=== PATIENT | male | born 1970 | race Caucasian/White ===

== ENCOUNTER 2019-07-16 04:31 | Observation (INO) | payer BC, SELFPAY ==
[2019-07-16] VITALS (11 sets, daily range): BP systolic 114–130; BP diastolic 60–83; PULSE 75–93; RESP 16–27; TEMP 36.9–38.3; O2SAT 95–100; BMI 31.2; BMI 31.5
[2019-07-16] MEDS: 0.9% Normal Saline 1,000 ML 150 ML IV (04:53)
--- NOTE | 2019-07-16 05:01 | RAD_ITS ---
STUDY: X-RAY CHEST REASON FOR EXAM: Male, 48 years old. SOB -- CELLULITIS TO LEG TECHNIQUE: Single AP portable view of the chest. Patient is slightly rotated to the left. COMPARISON: None. FINDINGS: The lungs are clear and expanded. There is no demonstrated pleural abnormality. Normal size heart. Normal mediastinum and keshawn. Normal visualized pulmonary arteries. Normal visualized aortic arch and descending thoracic aorta. There are multilevel degenerative changes of the visualized thoracic spine. Normal visualized ribs, clavicles, and shoulders. There is no demonstrated abnormality of the visualized soft tissue structures of the upper abdomen. RAD/Chest 1 View (Portable) IMPRESSION: No evidence for acute cardiopulmonary pathology. Electronically Signed: Jase Fisher MD at 5:27 EDT , Service support ,
[2019-07-16 05:14] LABS: Absolute Neutrophil Count 17.1 X10^3/uL (2.0-7.7); Basophil# 0.03 X10^3/uL; Basophil% 0.2 % (0-1); Differential Indicated SCAN CRITERIA MET; Eosinophil# 0.08 X10^3/uL; Eosinophils% 0.4 % (0-5); Hematocrit 39.2 % (40-54); Hemoglobin 13.4 g/dL (13.0-16.5); Lymphocyte % 2.2 % (19-41); Mean Corp Hgb Conc 34.2 g/dL (32-36); Mean Corpuscular Hgb 29.6 pg (27.0-32.0); Mean Corpuscular Volume 86.7 fL (80-94); Mean Platelet Vol. 10.5 fl (6.2-12.0); Monocyte# 0.56 X10^3/uL; NRBC Flagged by Analyzer 0 % (0-5); Neutrophil # 17.07 X10^3/uL (2.7-7.7); Neutrophil % 92.6 % (47-70); POSITIVE DIFFERENTIAL YES; POSITIVE MORPHOLOGY YES; Platelet Count 180 K/mm3 (150-450); RBC Distribution Width SD 40.3 fl (35.1-43.9); Red Blood Count 4.52 M/mm3 (4.6-6.2); White Blood Count 18.4 K/mm3 (4.4-11.0)
--- NOTE | 2019-07-16 05:29 | ED.VISSUMM ---
- ER Visit Summary Date of Service: 07/16/19 Chief Complaint: [Cellulitis left leg] History of Present Illness: The patient is a 48 M [presents the emergency department complaint of redness and swelling to the left leg that he noticed yesterday. Patient states he started taking the dose of clindamycin last evening. Patient developed chills. He complains of aching in his body and complains of some mild shortness of breath which is typical when he gets cellulitis. Patient states that he has had multiple other episodes of cellulitis in the left leg. He has had admissions for this in the past. He denies any other illness. Patient has no medical history otherwise. Patient denies cough or sore throat. He denies sick contacts.] Physical Examination: [HEENT-PERRLA, EOMI. Cranial nerves II through XII grossly intact. TMs clear. Mucous membranes moist. No adenopathy. Cardiovascular-regular rate and rhythm without murmur or ectopy Lungs-clear to auscultation, chest wall stable without crepitus or subcu emphysema Abdomen-normoactive bowel sounds, soft, nontender, no rebound or rigidity, no peritoneal signs. Extremities-intact ?4, normal range of motion, normal pulses, atraumatic. Left leg-patient has erythema and soft tissue swelling noted from the left knee down to the ankle. Leg is warm to the touch.] Test Results: [CBC with differential obtained showed a white count of 18.4, hemoglobin 13, hematocrit 39, plates 180. Chest x-ray was unremarkable.] Chemistries unremarkable. Lactate was 1.0. Emergency Department Course and Treatment: [9 established and was started on Unasyn 3 g IV. Was given normal saline at 150 cc an hour.] Treatment Plan: [Admit] Disposition: [Admit] Impression: [Cellulitis left leg Sepsis] This note was generated with comScore dictation software. It may contain incorrect words, spelling, and punctuation that were not noted in review of the chart prior to signing ED Disposition - Plan for ED Patient: [facility] [[facility] Provider] -
[2019-07-16 05:30] LABS: Anion Gap 5 (5-15); BUN 21 mg/dL (7-18); BUN/Creat Ratio 16.2 RATIO (10-20); Calcium,Total 8.7 mg/dL (8.5-10.1); Chloride 104 mmol/L (98-107); EST Glomerular Filtration Rate 62 mL/min (>60); Est Glom Filt Rate - Afr Amer 75 mL/min (>60); Estimated Creatinine Clearance 81.25 ml/min; Glucose 122 mg/dL (74-106); Potassium 4.1 mmol/L (3.5-5.1); Sodium Level 135 mmol/L (136-145)
[2019-07-16 05:32] LABS: Differential Comment SCANNED
--- NOTE | 2019-07-16 05:37 | NURSING ---
CALLED [facility], SPOKE WATSON LYNN IN BED CONTROL TO ADVISE THE NEED TO ADMIT THIS PT. LEAH STATED TO ADMIT AND THEY WILL FOLLOW UP IN THE MORNING
--- NOTE | 2019-07-16 06:00 | PCM.HP.STD ---
History of Present Illness Date of Admission: 07/16/19 Chief Complaint: LLE cellulitis The patient is a 48 year old M with a PMH as below who presents with left lower extremity cellulitis that started yesterday. He did take a dose of clindamycin before coming into the hospital. He says it just happens fairly frequently and he has been hospitalized several times at the [facility] in [facility] And another [facility] throughout the [place]. He states that he has been investigated with ultrasound of his left lower extremity as well as CT scans and that the best explanation he can get is that he has poor circulation. It does swell and he is supposed be wearing compression stockings but he does not comply with it very often. 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 In the ER he is afebrile with a leukocytosis to 18.4, normal lactate. Past Medical History Past Medical History (Chronic Problems): Chronic Problems Venous stasis of lower extremity (Chronic) Allergies No Known Allergies Allergy (Verified 07/16/19 04:38) Home Medications: Ambulatory Orders Medication Instructions Recorded Cephalexin [Keflex] 500 mg PO Q12 07/16/19 Surgical History: - - Bunion surgery, reattachment of left little finger secondary to traumatic injury Smoking Status: Never smoker Alcohol: None Drugs: None - *Family History Maternal History Items: No pertinent history Paternal History Items: Heart Disease, - - Lung disease Sibling History Items: No pertinent history Review of Systems Constitutional: Reports: Chills. Denies: Fever, Weight Change HEENT: Denies: Head Aches, Sinus Congestion, Sinus Drainage Cardiovascular: Denies: Chest Pain, Palpitations Respiratory: Denies: Cough, Shortness of breath at rest, Sputum production Gastrointestinal: Denies: Abdominal Pain, Nausea, Vomiting Genitourinary: Denies: Dysuria Musculoskeletal: Denies: Joint Pain, Joint Tenderness Skin: Reports: Rash. Denies: Wounds Neurological: Denies: Numbness, Tingling, Focal weakness Psychiatric: Denies: Anxiety, Depression Hematologic/ Lymphatic: Denies: Easy Bruising, Easy Bleeding VTE Information - Inpt Only VTE Present on Admission: No - Physical Exam Vitals/I&O's: Vital Signs Temp Pulse Resp BP Pulse Ox 99.9 F H 89 20 H 125/83 H 98 07/16/19 04:37 07/16/19 04:37 07/16/19 04:37 07/16/19 04:37 07/16/19 04:37 Oxygen Delivery Method Room Air Weight: 250 lb 0.067 oz Body Mass Index (BMI) 31.2 Intake and Output for Last 24 Hours 07/14/19 07/15/19 07/16/19 23:59 23:59 23:59 Intake Total 17.5 / 17.5 Balance 17.5 / 17.5 General: Alert, Oriented x3, Cooperative, No apparent distress HEENT: Atraumatic, PERRLA, EOMI, Normocephalic Oral: Moist Mucosa Neck: Supple, No JVD Lungs: Clear to auscultation, Normal air movement, No rhonchi, No wheeze, No rales Cardiovascular: Regular rate, Regular Rhythm, Normal S1, Normal S2, No murmurs Abdomen: Soft, Non Tender, Non-Distended, No Hepato-splenomegaly Extremities: Capillary Refill Less than 3 Seconds, Edema - Left lower extremity edema chronic no history of DVT and he has been investigated several times with the Skin: No breakdown, - - Left lower extremity cellulitis with a little bit of edema. Cellulitis extends to below the knee Neurological: Neuro grossly intact, Sensory exam intact to light touch and pain Psych/Mental Status: Normal Affect, Appropriate Laboratory Results 07/16/19 04:55: WBC 18.4 H, RBC 4.52 L, Hgb 13.4, Hct 39.2 L, MCV 86.7, MCH 29.6, MCHC 34.2, RDW Std Deviation 40.3, RDW Coeff of Siri 13.0, Plt Count 180, MPV 10.5, Immature Gran % (Auto) 1.600 H, Neut % (Auto) 92.6 H, Lymph % (Auto) 2.2 L, [place] % (Auto) 3.0, Eos % (Auto) 0.4, Baso % (Auto) 0.2, Absolute Neuts (auto) 17.1 H, Absolute Lymphs (auto) 0.40 L, Nucleated RBC % 0, Differential Comment SCANNED 07/16/19 04:55: Sodium 135 L, Potassium 4.1, Chloride 104, Carbon Dioxide 26.0, Anion Gap 5, BUN 21 H, Creatinine 1.30, Estim Creat Clear Calc 81.25, Est GFR (MDRD) Af Amer 75, Est GFR (MDRD) Non-Af 62, BUN/Creatinine Ratio 16.2, Glucose 122 H, Calcium 8.7 07/16/19 04:55: Lactic Acid 1.0 Current Medications Sodium Chloride () 1,000 mls @ 150 mls/hr IV .[id number] ROBB Last Infusion: 07/16/19 05:00 Dose: 0 mls/hr Documented by: Assessment/Plan All Active Problems redness of left leg (Acute) 1. Mild sepsis secondary to left lower extremity cellulitis -Continue with Keflex p.o., he did get a dose of Unasyn in the ER -IV fluids at 100 -Blood cultures are pending -Encouraged him to wrap his lower extremity and an Bony bandage when exercising to control any edema -He states that he has had extensive [facility] with [facility] and CT scans. Nothing has been found -He was last admitted in April for this and it was much more severe at that time DVT: Ambulation OBSV E&M: 68092 Initial observation care L2
[2019-07-16] MEDS: 0.9% Normal Saline 1,000 ML 100 ML IV ×2 (07:06→14:47)
[2019-07-16] MEDS: Cephalexin 500 MG Capsule PO ×4 (07:07→23:23)
[2019-07-16 09:22] LABS: AST(SGOT) 19 U/L (15-37); Alanine Aminotransfer ALT/SGPT 27 U/L (16-61); Albumin, Serum 3.8 g/dL (3.2-5.0); Alkaline Phosphatase 60 U/L (45-117); Bilirubin, Direct 0.26 mg/dL (0.00-0.30); Globulin 3.6 g/dL (2.2-4.2); Protein, Total 7.4 g/dL (6.4-8.2)
--- NOTE | 2019-07-16 10:47 | VDLE_ITS ---
Reason For Study: Swelling Procedure LEFT Exam performed portable in patient room. GSV is normal. A preliminary report was called and/or faxed CFV is compressible, spontaneous, phasic, to PCU. competent, and demonstrates normal augmentation. FV is compressible, spontaneous, phasic, competent and demonstrates normal augmentation. POP V is compressible, spontaneous, phasic, competent and demonstrates normal augmentation. T/P Trunk is compressible. PTV is compressible. LT PerV is compressible. Large nonvascularized structure noted in the left popliteal space measuring approximently 0.84 x 2.38 cm. Interpretation Summary There is no evidence of left lower extremity deep vein thrombosis. Left great saphenous vein appears patent and compressible segmentally. Left popliteal space 0.84 x 2.38cm Courtney's cyst Ordering Physician: Mary Martinez Performed By: Shirley Matthews RVT
--- NOTE | 2019-07-16 10:48 | PCM.PN.BLA ---
Progress Note Follow-up on left leg cellulitis. Patient was seen and examined. He complains of poor appetite, denies fever or chills. Left lower extremity cellulitis is better. Vitals reviewed, stable Focused exam of the left leg showed improvement in erythema, differential warmth still present. Erythema has not extended beyond the borders of the marked region. Left lower leg is bigger than right We will continue on Keflex, elevation of the lower extremity, obtain Doppler ultrasound of the lower leg He will need follow-up with vascular surgery on discharge as this appears to be acute on chronic. STROKE Vital Signs/Narrative: Vital Signs Temp Pulse Resp BP Pulse Ox 07/16/19 10:40 100.0 F H 89 18 130/72 H 95
--- NOTE | 2019-07-16 11:10 | CASEMGMT ---
[facility] at [facility] Kamari VALDEZ CM
[2019-07-16] MEDS: Acetaminophen 325 MG Tablet 650 MG PO (11:47)
--- NOTE | 2019-07-16 13:28 | US_ITS ---
STUDY: SUPERFICIAL ULTRASOUND - POPLITEAL FOSSA OF THE LEFT KNEE REASON FOR EXAM: Male, 48 years old. LT COURTNEY CYST TECHNIQUE: A superficial ultrasound was performed with real-time and static klein-scale imaging. COMPARISON: None. FINDINGS: There is a cystic mass in the popliteal fossa measuring 3.5 x 2.8 x 1.2 cm with mild internal debris consistent with Courtney cyst possibly hemorrhagic. US/Ext Non Vasc Limited/Soft Tiss IMPRESSION: Complex Courtney''s cyst in the left popliteal fossa measuring 3.5 x 2.8 x 1.2 cm Electronically Signed: Mitch Burrell MD at 16:09 EDT , Service support ,
[2019-07-16] MEDS: 0.9% Saline Lock 10 ML Syringe IV (17:01)
[2019-07-17] MEDS: 0.9% Normal Saline 1,000 ML 100 ML IV (02:10)
[2019-07-17 02:11] VITALS: BP 118/53; PULSE 66; RESP 20; TEMP 37; O2SAT 95
[2019-07-17] MEDS: Cephalexin 500 MG Capsule PO ×2 (05:14→11:02)
[2019-07-17 05:33] LABS: Absolute Lymphocyte Count 1.15 X10^3/uL (0.83-4.51); Absolute Neutrophil Count 7.7 X10^3/uL (2.0-7.7); Basophil# 0.03 X10^3/uL; Basophil% 0.3 % (0-1); Eosinophil# 0.03 X10^3/uL; Eosinophils% 0.3 % (0-5); Hemoglobin 11.9 g/dL (13.0-16.5); Lymphocyte # 1.15 X10^3/ul (4.0); Mean Corp Hgb Conc 33.1 g/dL (32-36); Mean Corpuscular Hgb 29.1 pg (27.0-32.0); Mean Platelet Vol. 10.2 fl (6.2-12.0); Monocyte# 0.67 X10^3/uL; NRBC Flagged by Analyzer 0 % (0-5); Neutrophil # 7.67 X10^3/uL (2.7-7.7); Neutrophil % 79.9 % (47-70); Platelet Count 135 K/mm3 (150-450); RBC Distribution Width CV 13.2 % (11.6-14.6); RBC Distribution Width SD 42.6 fl (35.1-43.9); Red Blood Count 4.09 M/mm3 (4.6-6.2); White Blood Count 9.6 K/mm3 (4.4-11.0)
[2019-07-17 05:50] LABS: Anion Gap 4 (5-15); BUN 12 mg/dL (7-18); BUN/Creat Ratio 10.6 RATIO (10-20); Calcium,Total 8.2 mg/dL (8.5-10.1); Chloride 111 mmol/L (98-107); Creatinine, Serum 1.13 mg/dL (0.70-1.30); EST Glomerular Filtration Rate 73 mL/min (>60); Est Glom Filt Rate - Afr Amer 88 mL/min (>60); Estimated Creatinine Clearance 93.47 ml/min; Glucose 114 mg/dL (74-106); Sodium Level 140 mmol/L (136-145)
--- NOTE | 2019-07-17 09:18 | DCINST_ITS ---
- Discharge Diagnoses Reason(s) for Visit for Discharge Instructions: Left leg swelling and redness You will use the following diet at home:: Regular Your food should be the consistency of: Regular Your liquids should be the consistency of: Regular/Thin Discharge Activity: Return to Normal Activity Additional Instructions: Complete your antibiotics. [facility] Allergies/Adverse Reactions: Allergies No Known Allergies Allergy (Verified 07/16/19 04:38) Medications to take at Discharge Cephalexin [Keflex] 500 mg PO Q6 7 Days #42 cap 07/17/19 The following prescriptions were given: Cephalexin [Keflex] 500 mg PO Q6 7 Days #42 cap Transmission Status: Pending to [employer] #30 Primary Care Physician: [facility],[place] [Primary Care Provider] - Please follow up with your Primary Care Physician in: within 1-2 weeks Test Results: Test results from this visit will be discussed in further detail at your follow- up appointment, if applicable. Proposed Discharge Date: 07/17/19
--- NOTE | 2019-07-17 09:20 | DS.PCM_ITS ---
Discharge Date and Diagnosis Date of Admission: 07/16/19 Date of Discharge: 07/17/19 - Primary Discharge Diagnosis Sepsis secondary to acute Cellulitis of left leg - Secondary Discharge Diagnosis Chronic Problems Venous stasis of lower extremity (Chronic) Hospital Course and Treatment Imaging Results: Clinical Impression(s) from Imaging Studies Chest X-Ray 07/16/19 05:01 IMPRESSION: No evidence for acute cardiopulmonary pathology. Electronically Signed: Jase Fisher MD at 5:27 EDT , Service support , Soft Tissue Ultrasound 07/16/19 13:28 IMPRESSION: Complex Courtney''s cyst in the left popliteal fossa measuring 3.5 x 2.8 x 1.2 cm Electronically Signed: Mitch Burrell MD at 16:09 EDT , Service support , None Operations: None Procedures: None Summary of Care Provided: The patient is a 48 year old M with PMHx of venous insufficiency who comes in with left lower extremity redness of 1 day duration. Patient has recurrent history of the above and has been hospitalized several times in the [place]. managed as sepsis secondary to acute lower extremity cellulitis. He was initially started on Unasyn in the ED and transitioned to Keflex. Patient's general condition was stable. Doppler ultrasound of his lower extremity was negative for acute DVT but was positive for a popliteal cyst. Patient continued to be stable. His blood cultures were pending at time of discharge. He will follow- up with the [place] for vascular surgery input into his chronic venous insufficiency. Subjective: On the day of discharge, patient was seen and examined. Denied any new complaints. Denies any fever or chills or shortness of breath. - Physical Exam Vitals/I&O's: Vital Signs Temp Pulse Resp BP Pulse Ox 98.6 F 66 20 H 118/53 L 95 07/17/19 02:11 07/17/19 02:11 07/17/19 02:11 07/17/19 02:11 07/17/19 02:11 Oxygen Delivery Method Room Air Weight: 114.305 kg Body Mass Index (BMI) 31.5 Intake and Output for Last 24 Hours 07/15/19 07/16/19 07/17/19 23:59 23:59 23:59 Intake Total 1862.83 / 2384.83 1522 / 1522 Balance 1862.83 / 2384.83 1522 / 1522 General: Alert, Oriented x3, Cooperative, No apparent distress HEENT: Atraumatic, PERRLA, EOMI, Normocephalic Oral: Moist Mucosa Neck: Supple Lungs: Clear to auscultation, Normal air movement Cardiovascular: Regular rate, Regular Rhythm, Normal S1, Normal S2, No murmurs Abdomen: Bowel Sounds Present, Soft, Non Tender, Non-Distended, No Hepato- splenomegaly Extremities: Edema - Left lower leg is bigger than the right, erythema is much improved, edema is improved although left lower leg continues to be remarkably bigger than the right. Skin: No rashes, No breakdown Musculoskeletal: No Tenderness to Palpation of Joints or Extremities Neurological: Cranial nerves II-XII grossly intact Psych/Mental Status: Normal Affect, Appropriate Laboratory Results 07/16/19 04:55: Total Bilirubin 1.00, Direct Bilirubin 0.26, AST 19, ALT 27, Alkaline Phosphatase 60, Total Protein 7.4, Albumin 3.8, Globulin 3.6 07/17/19 05:06: WBC 9.6, RBC 4.09 L, Hgb 11.9 L, Hct 36.0 L, MCV 88.0, MCH 29.1, MCHC 33.1, RDW Std Deviation 42.6, RDW Coeff of Srii 13.2, Plt Count 135 L, MPV 10.2, Immature Gran % (Auto) 0.500, Neut % (Auto) 79.9 H, Lymph % (Auto) 12.0 L, [place] % (Auto) 7.0, Eos % (Auto) 0.3, Baso % (Auto) 0.3, Absolute Neuts (auto) 7.7, Absolute Lymphs (auto) 1.15, Nucleated RBC % 0 07/17/19 05:06: Sodium 140, Potassium 4.0, Chloride 111 H, Carbon Dioxide 25.0, Anion Gap 4 L, BUN 12, Creatinine 1.13, Estim Creat Clear Calc 93.47, Est GFR (MDRD) Af Amer 88, Est GFR (MDRD) Non-Af 73, BUN/Creatinine Ratio 10.6, Glucose 114 H, Calcium 8.2 L Current Medications Acetaminophen (Tylenol) 650 mg PO Q6H PRN PRN PRN Reason: Pain Score 1-10/Temp > 100.7 F Last Admin: 07/16/19 11:47 Dose: 650 mg Documented by: Cephalexin (Keflex) 500 mg PO Q6 [facility] Last Admin: 07/17/19 05:14 Dose: 500 mg Documented by: Sodium Chloride () 1,000 mls @ 100 mls/hr IV .Q10H [facility] Last Admin: 07/17/19 02:10 Dose: 100 mls/hr Documented by: Sodium Chloride () 250 mls @ 15 mls/hr IV .[id number] PRN PRN Reason: Saline Flush Sodium Chloride () 250 mls @ 15 mls/hr IV .[id number] PRN PRN Reason: Additional IVPB Infusion Sodium Chloride () 10 - 40 ml IV UD PRN PRN Reason: SALINE FLUSH Last Admin: 07/16/19 17:01 Dose: 10 ml Documented by: Discharge Diet: No Restrictions Discharge Activity: Return to Normal Activity Home Medications: Medications to take at Discharge Cephalexin [Keflex] 500 mg PO Q6 7 Days #42 cap 07/17/19 Following Prescrptions Were Given to Patient: Cephalexin [Keflex] 500 mg PO Q6 7 Days #42 cap Transmission Status: Received by [employer] #30 Primary Care Physician: [facility],[place] [Primary Care Provider] - Please follow up with your Primary Care Physician in: within 1-2 weeks Disposition: Home Minutes spent on discharge:: 40 Patient Condition:: Stable Medical Necessity - Tobacco Use Smoking Status: Never smoker Tobacco Use: Non-smoker Meaningful Use Info Meaningful Use Diagnoses (Choose all that apply): None applicable OBSV E&M: 21168 Observation care discharge
[2019-07-17 10:50] VITALS: BP 120/65; PULSE 59; RESP 16; TEMP 36.7; O2SAT 100
== END 2019-07-17 09:14 | disposition home or self-care (01) ==
LOC: ED 06:06 → PCU 06:11
PROVIDERS: Admitting Provider Family Medicine; Emergency Provider Emergency Medicine; Visit Provider Internal Medicine
DX: A41.9 Sepsis, unspecified organism (principal); L03.116 Cellulitis of left lower limb; I87.8 Other specified disorders of veins; R06.02 Shortness of breath
CPT/HCPCS: 36415; 71045; 76882; 80048; 80076; 83605; 85025; 87040; 93971; 96361; 96365; 99218; 99284; J7030; A4216; G0378; J0295

== ENCOUNTER 2019-08-17 11:20 | Inpatient (IN) | payer BC, OTHER, SELFPAY ==
[2019-07-16 06:26] VITALS: BMI 31.5
[2019-08-17] VITALS (10 sets, daily range): BP systolic 114–160; BP diastolic 61–130; PULSE 86–118; RESP 16–22; TEMP 37.2–38.3; O2SAT 93–100; BMI 31.8; BMI 31.9
--- NOTE | 2019-08-17 11:36 | RAD_ITS ---
STUDY: X-RAY CHEST REASON FOR EXAM: Male, 48 years old. CELLULITIS. FEVER TECHNIQUE: Single AP portable view of the chest. COMPARISON: Prior study of 07/16/2019 FINDINGS: ekg monitor tech leads are present. The lungs are clear and expanded. There is no demonstrated pleural abnormality. Normal size heart. Normal mediastinum and keshawn. Normal visualized pulmonary arteries. Normal visualized aortic arch and descending thoracic aorta. Normal visualized thoracic spine. Normal visualized ribs, clavicles, and shoulders. There is no demonstrated abnormality of the visualized soft tissue structures of the upper abdomen. RAD/Chest 1 View (Portable) IMPRESSION: Normal x-ray examination of the chest. Electronically Signed: Aleksandr Salgado MD at 12:35 EDT , Service support ,
--- NOTE | 2019-08-17 11:36 | EKG12_ITS ---
Test Reason : Blood Pressure : / mmHG Vent. Rate : 096 BPM Atrial Rate : 096 BPM P-R Int : 152 ms QRS Dur : 084 ms QT Int : 352 ms P-R-T Axes : 010 049 004 degrees QTc Int : 444 ms Normal sinus rhythm Nonspecific T wave abnormality Abnormal ECG Confirmed by ROSHNI OLGUIN, MIAH ([id number]), metropolitan editor ELDA LIPSCOMB ([id number]) on 08/18/2019 12:57:41 PM Referred By: DIPESH Confirmed By:MIAH BARAKAT MD
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
[2019-08-17] MEDS: 0.9% Normal Saline 1,000 ML 999 ML IV (12:02)
[2019-08-17] MEDS: Acetaminophen 500 MG Tablet 1000 MG PO (12:03)
[2019-08-17 12:27] LABS: Absolute Neutrophil Count 10.3 X10^3/uL (2.0-7.7); Basophil# 0.02 X10^3/uL; Basophil% 0.2 % (0-1); Eosinophil# 0.08 X10^3/uL; Eosinophils% 0.7 % (0-5); Hematocrit 39.8 % (40-54); Hemoglobin 13.5 g/dL (13.0-16.5); Lymphocyte % 5.3 % (19-41); Mean Corp Hgb Conc 33.9 g/dL (32-36); Mean Corpuscular Hgb 29.7 pg (27.0-32.0); Mean Corpuscular Volume 87.5 fL (80-94); Mean Platelet Vol. 10.5 fl (6.2-12.0); Monocyte# 0.32 X10^3/uL; Monocyte% 2.8 % (0-10); NRBC Flagged by Analyzer 0 % (0-5); Neutrophil # 10.25 X10^3/uL (2.7-7.7); Neutrophil % 90.6 % (47-70); POSITIVE DIFFERENTIAL YES; Platelet Count 153 K/mm3 (150-450); RBC Distribution Width CV 13.3 % (11.6-14.6); RBC Distribution Width SD 41.3 fl (35.1-43.9); Red Blood Count 4.55 M/mm3 (4.6-6.2); White Blood Count 11.3 K/mm3 (4.4-11.0)
[2019-08-17 12:38] LABS: AST(SGOT) 19 U/L (15-37); Alanine Aminotransfer ALT/SGPT 26 U/L (16-61); Albumin, Serum 3.7 g/dL (3.2-5.0); Alkaline Phosphatase 68 U/L (45-117); Anion Gap 5 (5-15); BUN 26 mg/dL (7-18); BUN/Creat Ratio 21.5 RATIO (10-20); Calcium,Total 8.6 mg/dL (8.5-10.1); Chloride 107 mmol/L (98-107); Creatinine, Serum 1.21 mg/dL (0.70-1.30); EST Glomerular Filtration Rate 67 mL/min (>60); Est Glom Filt Rate - Afr Amer 81 mL/min (>60); Estimated Creatinine Clearance 87.29 ml/min; Globulin 3.7 g/dL (2.2-4.2); Glucose 111 mg/dL (74-106); International Normalized Ratio 1.1; Lactic Acid 1.2 mmol/L (0.4-1.9); Potassium 4.1 mmol/L (3.5-5.1); Protein, Total 7.4 g/dL (6.4-8.2); Prothrombin Time (Protime)PT. 13.5 SECONDS (11.7-14.9); Sodium Level 138 mmol/L (136-145)
[2019-08-17 12:39] LABS: Partial Thromboplast Time 28.2 Seconds (24.1-36.2)
[2019-08-17 12:40] LABS: Differential Indicated SCAN CRITERIA MET
[2019-08-17 12:52] LABS: Differential Comment SCANNED
[2019-08-17 14:06] LABS: Bacteria 0 SEEN /hpf (None Seen); Mucous, Urine 0 SEEN /hpf (<or=2+); Red Blood Cells-Urine 0 SEEN /hpf (0-5); Squamous Epithelial Cells - UA 0 SEEN /hpf (0-5)
[2019-08-17 14:08] LABS: Color, Urine Yellow (Yellow); Glucose, Dipstick Normal (Normal); Ketone-Dipstick Negative (Negative); Leukocyte Esterase-Dipstick Negative /ul (Negative); Nitrite-Dipstick Negative (Negative); Occult Blood-Urine Negative /ul (Negative); Protein-Dipstick 15 mg/dl (Negative); Specific Gravity, Urine 1.015 (1.002-1.030); Urine Bilirubin Dipstick Negative (Negative); Urine Clarity Clear (Clear); Urine Urobilinogen Normal (Normal); Urine pH 6.5 (5.0 - 8.0)
[2019-08-17 14:22] LABS: White Blood Cells 0-5 SEEN /hpf (0-5)
--- NOTE | 2019-08-17 16:37 | PCM.HP.STD ---
Problem List (1) Cellulitis of left lower leg Status: Acute (2) Sepsis Status: Acute (3) Venous stasis of lower extremity Status: Chronic History of Present Illness Date of Admission: 08/17/19 Chief Complaint: LLE erythema The patient is a 48 year old M with pmhx of venous stasis and multiple (possibly 10 episodes) cellulitis left lower extremity. He came to the ER with redness of the left distal lower extremity near the ankle and chills that started this morning. He was recently admitted to the hospital with LLE cellulitis discharged 07/16/19 after being treated with unasyn and keflex. He was checked at that time for DVT but doppler was negative, it did show a popliteal cyst. The patient states that he has had issues with this every since early . He developed a blackened area on his foot, and was treated successfully for cellulitis. He has had recurrent cellulitis since then in the same location. Since arriving in the ER the erythema has spread to include the entire distal Left LE. After receiving antibiotics (unasyn) his chills have resolved. He also has a fever and tachycardia in the ER. He was in his normal state of health until this AM. He denies recent trauma to the area and has no evidence of abscess or fluid collection. [] Past Medical History Past Medical History (Chronic Problems): Chronic Problems Venous stasis of lower extremity (Chronic) Allergies No Known Allergies Allergy (Verified 08/17/19 11:21) Home Medications: Ambulatory Orders Medication Instructions Recorded NK 08/17/19 Surgical History: - - Bunion surgery, reattachment of left little finger secondary to traumatic injury Psychiatric History: No pertinent psych hx Lives: Spouse/ Significant Other Smoking Status: Never smoker Tobacco Use: Non-smoker Alcohol: None Drugs: None - *Family History Maternal History Items: No pertinent history Paternal History Items: Heart Disease, - - Lung disease Sibling History Items: No pertinent history Review of Systems Constitutional: Denies: Chills, Fever, Weight Change HEENT: Denies: Head Aches, Sinus Congestion, Sinus Drainage Cardiovascular: Denies: Chest Pain, Palpitations Respiratory: Denies: Cough, Shortness of breath at rest, Sputum production Gastrointestinal: Denies: Abdominal Pain, Nausea, Vomiting Genitourinary: Denies: Dysuria Musculoskeletal: Denies: Joint Pain, Joint Tenderness Skin: Reports: Rash, Skin Changes. Denies: Wounds Neurological: Denies: Numbness, Tingling, Focal weakness Psychiatric: Denies: Anxiety, Depression, Homicidal Ideations, Suicidal Ideations Hematologic/ Lymphatic: Denies: Easy Bruising, Easy Bleeding VTE Information - Inpt Only VTE Present on Admission: No VTE Mechan Device Prophylaxis: None VTE Pharm Prophylaxis ordered?: Yes Patient Problems: Active and Suspected Problems Cellulitis of left lower leg (Acute) Sepsis (Acute) - Physical Exam Vitals/I&O's: Vital Signs Temp Pulse Resp BP Pulse Ox 99.7 F H 100 20 H 120/62 95 08/17/19 15:30 08/17/19 15:30 08/17/19 15:30 08/17/19 15:30 08/17/19 15:30 Oxygen Delivery Method Room Air Weight: 255 lb Body Mass Index (BMI) 31.8 Intake and Output for Last 24 Hours 08/15/19 08/16/19 08/17/19 23:59 23:59 23:59 Intake Total 1112 / 1112 Balance 1112 / 1112 General: Alert, Oriented x3, Cooperative HEENT: Atraumatic, PERRLA, EOMI, Normocephalic Neck: Supple, No JVD, Negative Carotid Bruits Lungs: Clear to auscultation, Normal air movement Cardiovascular: Regular rate, No murmurs Abdomen: Bowel Sounds Present, Soft, Non Tender Extremities: Capillary Refill Less than 3 Seconds, Edema - LLE Skin: No breakdown, - - left distal leg with circumferential erythema, warmth, tenderness, no abscess or collection Musculoskeletal: No Tenderness to Palpation of Joints or Extremities Neurological: Cranial nerves II-XII grossly intact Psych/Mental Status: Normal Affect, Appropriate, Alert and oriented to time, place, person, mood and affect Laboratory Results 08/17/19 12:00: WBC 11.3 H, RBC 4.55 L, Hgb 13.5, Hct 39.8 L, MCV 87.5, MCH 29.7, MCHC 33.9, RDW Std Deviation 41.3, RDW Coeff of Siri 13.3, Plt Count 153, MPV 10.5, Immature Gran % (Auto) 0.400, Neut % (Auto) 90.6 H, Lymph % (Auto) 5.3 L, [place] % (Auto) 2.8, Eos % (Auto) 0.7, Baso % (Auto) 0.2, Absolute Neuts (auto) 10.3 H, Absolute Lymphs (auto) 0.60 L, Nucleated RBC % 0, Differential Comment SCANNED 08/17/19 12:00: PT 13.5, INR 1.1, APTT 28.2 08/17/19 12:00: Sodium 138, Potassium 4.1, Chloride 107, Carbon Dioxide 26.0, Anion Gap 5, BUN 26 H, Creatinine 1.21, Estim Creat Clear Calc 87.29, Est GFR (MDRD) Af Amer 81, Est GFR (MDRD) Non-Af 67, BUN/Creatinine Ratio 21.5 H, Glucose 111 H, Calcium 8.6, Total Bilirubin 0.60, AST 19, ALT 26, Alkaline Phosphatase 68, Total Protein 7.4, Albumin 3.7, Globulin 3.7, Albumin/Globulin Ratio 1.0 08/17/19 12:00: Lactic Acid 1.2 08/17/19 13:45: Urine Color Yellow, Urine Clarity Clear, Urine pH 6.5, Ur Specific [place] 1.015, Urine Protein 15 H, Urine Glucose (UA) Normal, Urine Ketones Negative, Urine Occult Blood Negative, Urine Nitrite Negative, Urine Bilirubin Negative, Urine Urobilinogen Normal, Ur Leukocyte Esterase Negative, Urine RBC 0 SEEN, Urine WBC 0-5 SEEN, Ur Squamous Epith Cells 0 SEEN, Urine Bacteria 0 SEEN, Urine Mucus 0 SEEN Assessment/Plan All Active Problems Cellulitis of left lower leg (Acute) Sepsis (Acute) redness of left leg (Acute) 1. Acute sepsis 2/2 Acute, recurrent cellulitis LLE - appearance c/w strep. In the past he has not had any specific bacteria identified. Each episode has responded well to cephalosporins and penicillins. Will continue unasyn started in ER. Give IV fluids overnight. Venous US done last month negative for DVT, defer repeat. Sepsis criteria met tachycardia, fever, leukocytosis, tachypnea. Negative lactate. Blood cultures pending. No wound to culture. CXR negative. 2. Venous stasis - uses [facility], [facility] DVT ppx: lovenox This patient was seen by Neo Thomason PA-C under the supervision of Dr. Liu.
[2019-08-17] MEDS: 0.9% Normal Saline 1,000 ML 100 ML IV (18:26)
[2019-08-17] MEDS: Acetaminophen 325 MG Tablet 650 MG PO (20:26)
[2019-08-17] MEDS: Heparin Injection (Vial) 5,000 UNIT/ML VIAL 5000 UNIT SC (23:43)
[2019-08-18] VITALS (7 sets, daily range): BP systolic 118–126; BP diastolic 65–72; PULSE 66–79; RESP 16–18; TEMP 36.7–37.4; O2SAT 95–98
[2019-08-18] MEDS: 0.9% Normal Saline 1,000 ML 100 ML IV (05:04)
[2019-08-18 05:24] LABS: Absolute Lymphocyte Count 0.61 X10^3/uL (0.83-4.51); Absolute Neutrophil Count 15.4 X10^3/uL (2.0-7.7); Basophil# 0.03 X10^3/uL; Basophil% 0.2 % (0-1); Eosinophil# 0.05 X10^3/uL; Eosinophils% 0.3 % (0-5); Hematocrit 36.8 % (40-54); Hemoglobin 12.2 g/dL (13.0-16.5); Lymphocyte # 0.61 X10^3/ul (4.0); Lymphocyte % 3.6 % (19-41); Mean Corp Hgb Conc 33.2 g/dL (32-36); Mean Corpuscular Hgb 28.9 pg (27.0-32.0); Mean Corpuscular Volume 87.2 fL (80-94); Mean Platelet Vol. 10.5 fl (6.2-12.0); Monocyte# 0.55 X10^3/uL; Monocyte% 3.3 % (0-10); NRBC Flagged by Analyzer 0 % (0-5); Neutrophil # 15.38 X10^3/uL (2.7-7.7); Neutrophil % 91.4 % (47-70); POSITIVE MORPHOLOGY YES; Platelet Count 139 K/mm3 (150-450); RBC Distribution Width CV 13.5 % (11.6-14.6); RBC Distribution Width SD 42.8 fl (35.1-43.9); Red Blood Count 4.22 M/mm3 (4.6-6.2); White Blood Count 16.8 K/mm3 (4.4-11.0)
[2019-08-18 05:26] LABS: Differential Indicated SCAN CRITERIA MET
[2019-08-18 06:20] LABS: Differential Comment SCANNED
[2019-08-18] MEDS: Heparin Injection (Vial) 5,000 UNIT/ML VIAL 5000 UNIT SC ×2 (09:58→22:27)
--- NOTE | 2019-08-18 10:00 | NURSING ---
pt refused for me to call
--- NOTE | 2019-08-18 11:03 | CASEMGMT ---
Addendum entered by Shirley Lewis 08/18/19 14:19: Clinicals faxed to [facility] transfer center at this time. Kamari VALDEZ CM Original Note: COURTNEY GAVIRIA assessment: Face to Face with patient for initial transition planning/care coordination assessment. COURTNEY GAVIRIA introduced self and role at [facility], pt voices understanding and consents to assessment at this time. Pt is lying in bed in no distress at this time. Pt is A/OX4 at this time and answers all questions appropriately at this time. Care providers, pharmacy, and demographics verified at this time. Presentation: Chills, concern for left leg cellulitis Admitting dx: Cellulitis left lower leg PCP: [facility] Alyssia Specialists: Pt states no current specialists. [facility] [place] Insurance: [place] Prescription Benefit: [place] Living Will/HPOA: Pt states has LW/HPOA and is aware that they are not on file at [facility] at this time. Pt states his , Annabelle Doherty, is HPOA. LNOK: Annabelle Doherty, /HPOA Living Arrangements: Pt states lives with on main level of home and states no concerns at home at this time. Pt states is independent with ADL's. Transportation: Pt states drives self and states no transportation concerns at this time. DME/HHC: Pt states no current DME or need for any at this time. Pt states no hx of HHC or SNF in the past. Pt states no concerns with going home at time of discharge. 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 Pt states does not smoke cigarettes or drink ETOH. Pt states no further concerns/needs at this time. CM to follow for any further discharge planning/needs. Advised pt to ask for CM if any further questions/concerns/needs arise, voices understanding. Pt Goal: Home Plan: Home Kamari VALDEZ CM
--- NOTE | 2019-08-18 11:11 | PN_ITS ---
<Neo Thomason - Last Filed: 08/18/19 11:11> Patient Problems: Active and Suspected Problems Cellulitis of left lower leg (Acute) Sepsis (Acute) Reason for Visit: LLE cellulitis Subjective: No open areas or drainage. No further chills or fever. No CP/palp. No hx valvular dz. Blood cx + group G strep. No nausea/vomting/or diarrhea. Vitals/I&O's: Vital Signs Temp Pulse Resp BP Pulse Ox 98.9 F 79 16 126/71 H 98 08/18/19 07:27 08/18/19 07:27 08/18/19 07:27 08/18/19 07:27 08/18/19 07:27 Oxygen Delivery Method Room Air Weight: 255 lb Body Mass Index (BMI) 31.8 Intake and Output for Last 24 Hours 08/16/19 08/17/19 08/18/19 23:59 23:59 23:59 Intake Total 1835.67 / 1835.67 682.33 / 682.33 Balance 1835.67 / 1835.67 682.33 / 682.33 General: Alert, Oriented x3, Cooperative HEENT: Atraumatic, PERRLA, EOMI, Normocephalic Neck: Supple, No JVD, Negative Carotid Bruits Lungs: Clear to auscultation, Normal air movement Cardiovascular: Regular rate, No murmurs Abdomen: Bowel Sounds Present, Soft, Non Tender Extremities: Capillary Refill Less than 3 Seconds, Edema - LLE edema. Skin: No breakdown, - - LLE with warmth, erythema, no open areas, drainage, or induration. remains below knee. Musculoskeletal: No Tenderness to Palpation of Joints or Extremities Neurological: Cranial nerves II-XII grossly intact Psych/Mental Status: Normal Affect, Appropriate, Alert and oriented to time, place, person, mood and affect Microbiology Past 72 Hours 08/17/19 12:00 Blood Culture (Wb) - Anticubital Right Blood Culture - Preliminary Streptococcus group G Laboratory Results 08/17/19 12:00: WBC 11.3 H, RBC 4.55 L, Hgb 13.5, Hct 39.8 L, MCV 87.5, MCH 29.7, MCHC 33.9, RDW Std Deviation 41.3, RDW Coeff of Siri 13.3, Plt Count 153, MPV 10.5, Immature Gran % (Auto) 0.400, Neut % (Auto) 90.6 H, Lymph % (Auto) 5.3 L, [place] % (Auto) 2.8, Eos % (Auto) 0.7, Baso % (Auto) 0.2, Absolute Neuts (auto) 10.3 H, Absolute Lymphs (auto) 0.60 L, Nucleated RBC % 0, Differential Comment SCANNED 08/17/19 12:00: PT 13.5, INR 1.1, APTT 28.2 08/17/19 12:00: Sodium 138, Potassium 4.1, Chloride 107, Carbon Dioxide 26.0, Anion Gap 5, BUN 26 H, Creatinine 1.21, Estim Creat Clear Calc 87.29, Est GFR (MDRD) Af Amer 81, Est GFR (MDRD) Non-Af 67, BUN/Creatinine Ratio 21.5 H, Glucose 111 H, Calcium 8.6, Total Bilirubin 0.60, AST 19, ALT 26, Alkaline Phosphatase 68, Total Protein 7.4, Albumin 3.7, Globulin 3.7, Albumin/Globulin Ratio 1.0 08/17/19 12:00: Lactic Acid 1.2 08/17/19 13:45: Urine Color Yellow, Urine Clarity Clear, Urine pH 6.5, Ur Specific [place] 1.015, Urine Protein 15 H, Urine Glucose (UA) Normal, Urine Ketones Negative, Urine Occult Blood Negative, Urine Nitrite Negative, Urine Bilirubin Negative, Urine Urobilinogen Normal, Ur Leukocyte Esterase Negative, Urine RBC 0 SEEN, Urine WBC 0-5 SEEN, Ur Squamous Epith Cells 0 SEEN, Urine Bacteria 0 SEEN, Urine Mucus 0 SEEN 08/18/19 04:50: WBC 16.8 H, RBC 4.22 L, Hgb 12.2 L, Hct 36.8 L, MCV 87.2, MCH 28.9, MCHC 33.2, RDW Std Deviation 42.8, RDW Coeff of Siri 13.5, Plt Count 139 L, MPV 10.5, Immature Gran % (Auto) 1.200 H, Neut % (Auto) 91.4 H, Lymph % (Auto) 3.6 L, [place] % (Auto) 3.3, Eos % (Auto) 0.3, Baso % (Auto) 0.2, Absolute Neuts (auto) 15.4 H, Absolute Lymphs (auto) 0.61 L, Nucleated RBC % 0, Differential Comment SCANNED Current Medications Acetaminophen (Tylenol) 650 mg PO Q6H PRN PRN PRN Reason: Pain Score 1-10/Temp > 100.7 F Last Admin: 08/17/19 20:26 Dose: 650 mg Documented by: Heparin Sodium (Porcine) (Heparin Na) 5,000 unit SC Q12 [facility] Last Admin: 08/18/19 09:58 Dose: 5,000 unit Documented by: Sodium Chloride () 1,000 mls @ 100 mls/hr IV .Q10H [facility] Last Infusion: 08/18/19 05:49 Dose: 100 mls/hr Documented by: Ampicillin Sodium/Sulbactam (Sodium 3 gm/ Sodium Chloride) 112 mls @ 150 mls/hr IV Q6 [facility] Last Infusion: 08/18/19 05:49 Dose: Infused Documented by: Ondansetron HCl (Zofran) 4 mg IV Q8H PRN PRN PRN Reason: NAUSEA/VOMITING Oxycodone HCl (Oxyir) 10 mg PO Q4H PRN PRN PRN Reason: Pain Score 6-10/10 Oxycodone HCl (Oxyir) 10 mg PO Q4H PRN PRN PRN Reason: Pain Score 4-5/10 Sodium Chloride () 10 - 40 ml IV UD PRN PRN Reason: SALINE FLUSH Temazepam (Restoril) 15 mg PO QHS PRN PRN PRN Reason: INSOMNIA STROKE Vital Signs/Narrative: Vital Signs Temp Pulse Resp BP Pulse Ox 08/18/19 07:27 98.9 F 79 16 126/71 H 98 Medical Necessity - Tobacco Use Smoking Status: Never smoker Tobacco Use: Non-smoker Assessment/Plan All Active Problems Cellulitis of left lower leg (Acute) Sepsis (Acute) redness of left leg (Acute) 1. Acute sepsis and bacteremia 2/2 Acute, recurrent cellulitis LLE - Blood cultures show group G strep. Will continue unasyn. Venous US done last month negative for DVT, defer repeat. WBC increased. No further chills or fever today. Repeat blood cx at 48 hrs. 2. Venous stasis - uses prescription compression [facility], [facility] - o/p follow up. JESSY wrap for LLE edema. DVT ppx: lovenox This patient was seen by Neo Thomason PA-C under the supervision of Dr. Mendiola <Grace Mendiola - Last Filed: 08/18/19 15:06> Vitals/I&O's: Vital Signs Temp Pulse Resp BP Pulse Ox 98.1 F 66 16 120/70 98 08/18/19 14:16 08/18/19 14:16 08/18/19 14:16 08/18/19 14:16 08/18/19 14:16 Oxygen Delivery Method Room Air Weight: 255 lb Body Mass Index (BMI) 31.8 Intake and Output for Last 24 Hours 08/16/19 08/17/19 08/18/19 23:59 23:59 23:59 Intake Total 1835.67 / 1835.67 1802.66 / 1802.66 Balance 1835.67 / 1835.67 1802.66 / 1802.66 Microbiology Past 72 Hours 08/17/19 13:45 Urine, Clean Catch Urine Culture - Preliminary Culture exhibits no growth. 08/17/19 12:00 Blood Culture (Wb) - Anticubital Right Blood Culture - Preliminary Streptococcus group G Laboratory Results 08/18/19 04:50: WBC 16.8 H, RBC 4.22 L, Hgb 12.2 L, Hct 36.8 L, MCV 87.2, MCH 28.9, MCHC 33.2, RDW Std Deviation 42.8, RDW Coeff of Siri 13.5, Plt Count 139 L, MPV 10.5, Immature Gran % (Auto) 1.200 H, Neut % (Auto) 91.4 H, Lymph % (Auto) 3.6 L, [place] % (Auto) 3.3, Eos % (Auto) 0.3, Baso % (Auto) 0.2, Absolute Neuts (auto) 15.4 H, Absolute Lymphs (auto) 0.61 L, Nucleated RBC % 0, Differential Comment SCANNED Current Medications Acetaminophen (Tylenol) 650 mg PO Q6H PRN PRN PRN Reason: Pain Score 1-10/Temp > 100.7 F Last Admin: 08/17/19 20:26 Dose: 650 mg Documented by: Heparin Sodium (Porcine) (Heparin Na) 5,000 unit SC Q12 [facility] Last Admin: 08/18/19 09:58 Dose: 5,000 unit Documented by: Ampicillin Sodium/Sulbactam (Sodium 3 gm/ Sodium Chloride) 112 mls @ 150 mls/hr IV Q6 [facility] Last Infusion: 08/18/19 12:45 Dose: Infused Documented by: Ondansetron HCl (Zofran) 4 mg IV Q8H PRN PRN PRN Reason: NAUSEA/VOMITING Oxycodone HCl (Oxyir) 10 mg PO Q4H PRN PRN PRN Reason: Pain Score 6-10/10 Oxycodone HCl (Oxyir) 10 mg PO Q4H PRN PRN PRN Reason: Pain Score 4-5/10 Sodium Chloride () 10 - 40 ml IV UD PRN PRN Reason: SALINE FLUSH Temazepam (Restoril) 15 mg PO QHS PRN PRN PRN Reason: INSOMNIA STROKE Vital Signs/Narrative: Vital Signs Temp Pulse Resp BP Pulse Ox 08/18/19 14:16 98.1 F 66 16 120/70 98 08/18/19 11:54 98.7 F 74 16 118/70 98 Assessment/Plan Patient seen by Neo Thomason PA-C under my supervision Patient seen and examined. He was admitted with a complaint of left lower extremity redness and has been managed for sepsis due to cellulitis of the left lower extremity. He is on IV Unasyn. Patient had no complaints this morning. He feels pain and redness have improved though his left lower extremity was wrapped in a bandage. He denied any fever or chills, nausea vomiting or diarrhea. Review of systems otherwise negative. Labs and vitals reviewed. He has remained hemodynamically stable and temperature has trended down. O/e: Vital Signs Temp Pulse Resp BP Pulse Ox 98.1 F 66 16 120/70 98 08/18/19 14:16 08/18/19 14:16 08/18/19 14:16 08/18/19 14:16 08/18/19 14:16 General: Alert, Oriented x3, Cooperative HEENT: Atraumatic, PERRLA, EOMI, Normocephalic Neck: Supple, No JVD, Negative Carotid Bruits Lungs: Clear to auscultation, Normal air movement Cardiovascular: Regular rate, No murmurs Abdomen: Bowel Sounds Present, Soft, Non Tender Extremities: Capillary Refill Less than 3 Seconds, Edema - LLE edema. Skin: No breakdown, - -LLE wrapped in JESSY bandage. Musculoskeletal: No Tenderness to Palpation of Joints or Extremities Neurological: Cranial nerves II-XII grossly intact Psych/Mental Status: Normal Affect, Appropriate, Alert and oriented to time, place, person, mood and affect And is continue IV Unasyn. Await blood cultures. White cell count is trended up to 16.8. However patient feeling better clinically. We will continue IV antibiotics and monitor. Rest as per Neo Thomason PA-C's notes which I have reviewed and endorsed. Inpatient E&M: [id number] Subs Hosp L2
[2019-08-18] MEDS: 0.9% Saline Lock 10 ML Syringe IV (17:41)
[2019-08-19 00:20] VITALS: BP 106/61; PULSE 58; RESP 16; TEMP 36.9; O2SAT 94
[2019-08-19] MEDS: 0.9% Saline Lock 10 ML Syringe IV ×3 (00:21→11:22)
[2019-08-19 05:22] VITALS: BP 103/73; PULSE 67; RESP 16; TEMP 36.8; O2SAT 96
[2019-08-19 06:08] LABS: Absolute Lymphocyte Count 1.42 X10^3/uL (0.83-4.51); Absolute Neutrophil Count 7.5 X10^3/uL (2.0-7.7); Basophil# 0.04 X10^3/uL; Basophil% 0.4 % (0-1); Eosinophil# 0.12 X10^3/uL; Eosinophils% 1.2 % (0-5); Hemoglobin 12.5 g/dL (13.0-16.5); Lymphocyte # 1.42 X10^3/ul (4.0); Lymphocyte % 14.4 % (19-41); Mean Corp Hgb Conc 31.3 g/dL (32-36); Mean Corpuscular Hgb 27.9 pg (27.0-32.0); Mean Corpuscular Volume 89.3 fL (80-94); Mean Platelet Vol. 10.6 fl (6.2-12.0); Monocyte# 0.72 X10^3/uL; Monocyte% 7.3 % (0-10); NRBC Flagged by Analyzer 0 % (0-5); Neutrophil # 7.51 X10^3/uL (2.7-7.7); Neutrophil % 76.4 % (47-70); Platelet Count 144 K/mm3 (150-450); RBC Distribution Width CV 13.4 % (11.6-14.6); RBC Distribution Width SD 43.5 fl (35.1-43.9); Red Blood Count 4.48 M/mm3 (4.6-6.2); White Blood Count 9.8 K/mm3 (4.4-11.0)
[2019-08-19 06:35] LABS: Anion Gap 5 (5-15); BUN 14 mg/dL (7-18); BUN/Creat Ratio 12.1 RATIO (10-20); Calcium,Total 8.6 mg/dL (8.5-10.1); Chloride 108 mmol/L (98-107); Creatinine, Serum 1.16 mg/dL (0.70-1.30); EST Glomerular Filtration Rate 71 mL/min (>60); Est Glom Filt Rate - Afr Amer 85 mL/min (>60); Estimated Creatinine Clearance 91.06 ml/min; Glucose 100 mg/dL (74-106); Sodium Level 139 mmol/L (136-145)
[2019-08-19 07:36] VITALS: PULSE 80
[2019-08-19] MEDS: Heparin Injection (Vial) 5,000 UNIT/ML VIAL 5000 UNIT SC (09:51)
--- NOTE | 2019-08-19 10:47 | DCINST_ITS ---
- Discharge Diagnoses Current Active Problems: Current Active and Chronic Problems Cellulitis of left lower leg (Acute) Sepsis (Acute) You will use the following diet at home:: No restrictions Your food should be the consistency of: Regular Your liquids should be the consistency of: Regular/Thin Discharge Activity: Return to Normal Activity Allergies/Adverse Reactions: Allergies No Known Allergies Allergy (Verified 08/17/19 11:21) Medications to take at Discharge Amoxicillin/Potassium Clav [Augmentin 875-125 Tablet] 1 ea PO BID #16 tab 08/19/19 The following prescriptions were given: Amoxicillin/Potassium Clav [Augmentin 875-125 Tablet] 1 ea PO BID #16 tab Transmission Status: Pending to [employer] [id number] Primary Care Physician: [facility] [Primary Care Provider] - Please follow up with your Primary Care Physician in: 1-2 weeks Test Results: Test results from this visit will be discussed in further detail at your follow- up appointment, if applicable. Proposed Discharge Date: 08/19/19
[2019-08-19 11:35] VITALS: BP 120/88; PULSE 66; RESP 12; TEMP 36.8; O2SAT 100
--- NOTE | 2019-08-19 14:08 | DS.PCM_ITS ---
<Neo Thomason - Last Filed: 08/19/19 14:08> Discharge Date and Diagnosis Date of Admission: 08/17/19 Date of Discharge: 08/19/19 - Primary Discharge Diagnosis Acute sepsis, bacteremia, cellulitis Left lower leg, recurrent. 2/2 Group G strep Chronic venous stasis LLE. - Secondary Discharge Diagnosis Chronic Problems Venous stasis of lower extremity (Chronic) Hospital Course and Treatment Imaging Results: RAD/Chest 1 View (Portable) IMPRESSION: Normal x-ray examination of the chest. Operations: None Procedures: None Summary of Care Provided: Hospital Course: The patient is a 48 year old M with pmhx of recurrent cellulitis of the LLE and LLE venous insufficiency who presented to the ER with LLE swelling, redness and chills. He appeared septic in the ER with leukocytosis, fever, tachycardia, and tachypnea, negative lactate. He had no obvsiou skin opening, collection, or drainage. He was started on unasyn and admitted to the med surg unit for sepsis 2/2 cellulitis. He responded well to therapy with resolution of his fevers and chills the first night. The following day blood cultures turned positive and grew out group G strep. WBC count resolved. He had resolution of the swelling and erythema of his LLE. He was transitioned to augmentin and will complete a total of ten days of therapy. He will need to follow up with his PCP in 1-2 weeks. He [facility] me [facility] This patient was seen by Neo Thomason PA-C under the supervision of Dr. Mendiola[] - Physical Exam Vitals/I&O's: Vital Signs Temp Pulse Resp BP Pulse Ox 98.3 F 66 12 120/88 H 100 08/19/19 11:35 08/19/19 11:35 08/19/19 11:35 08/19/19 11:35 08/19/19 11:35 Oxygen Delivery Method Room Air Weight: 255 lb Body Mass Index (BMI) 31.8 Intake and Output for Last 24 Hours 08/17/19 08/18/19 08/19/19 23:59 23:59 23:59 Intake Total 1835.67 / 1835.67 2814.66 / 2814.66 336 / 336 Balance 1835.67 / 1835.67 2814.66 / 2814.66 336 / 336 General: Alert, Oriented x3, Cooperative HEENT: Atraumatic, PERRLA, EOMI, Normocephalic Neck: Supple, No JVD, Negative Carotid Bruits Lungs: Clear to auscultation, Normal air movement Cardiovascular: Regular rate, No murmurs Abdomen: Bowel Sounds Present, Soft, Non Tender Extremities: No edema, Capillary Refill Less than 3 Seconds Skin: No rashes, No breakdown Musculoskeletal: No Tenderness to Palpation of Joints or Extremities Neurological: Cranial nerves II-XII grossly intact Psych/Mental Status: Normal Affect, Appropriate Microbiology Past 72 Hours 08/17/19 12:00 Blood Culture (Wb) - Anticubital Right Blood Culture - Preliminary Streptococcus group G 08/17/19 13:45 Urine, Clean Catch Urine Culture - Preliminary Culture exhibits no growth. Laboratory Results 08/19/19 05:11: WBC 9.8, RBC 4.48 L, Hgb 12.5 L, Hct 40.0, MCV 89.3, MCH 27.9, MCHC 31.3 L D, RDW Std Deviation 43.5, RDW Coeff of Siri 13.4, Plt Count 144 L, MPV 10.6, Immature Gran % (Auto) 0.300, Neut % (Auto) 76.4 H, Lymph % (Auto) 14.4 L, [place] % (Auto) 7.3, Eos % (Auto) 1.2, Baso % (Auto) 0.4, Absolute Neuts (auto) 7.5, Absolute Lymphs (auto) 1.42, Nucleated RBC % 0 08/19/19 05:11: Sodium 139, Potassium 4.0, Chloride 108 H, Carbon Dioxide 26.0, Anion Gap 5, BUN 14, Creatinine 1.16, Estim Creat Clear Calc 91.06, Est GFR (MDRD) Af Amer 85, Est GFR (MDRD) Non-Af 71, BUN/Creatinine Ratio 12.1, Glucose 100, Calcium 8.6 Discharge Diet: No Restrictions Discharge Activity: Return to Normal Activity Home Medications: Medications to take at Discharge Amoxicillin/Potassium Clav [Augmentin 875-125 Tablet] 1 ea PO BID #16 tab 08/19/19 Following Prescrptions Were Given to Patient: Amoxicillin/Potassium Clav [Augmentin 875-125 Tablet] 1 ea PO BID #16 tab Transmission Status: Received by [facility] #[id number] [facility] Care Physician: [facility] [Primary Care Provider] - Please follow up with your Primary Care Physician in: 1-2 weeks Disposition: Home Minutes spent on discharge:: 35 Patient Condition:: Stable Medical Necessity - Tobacco Use Smoking Status: Never smoker Tobacco Use: Non-smoker Meaningful Use Info Meaningful Use Diagnoses (Choose all that apply): None applicable <Grace Mendiola - Last Filed: 08/19/19 17:45> Discharge Date and Diagnosis - Secondary Discharge Diagnosis Chronic Problems Venous stasis of lower extremity (Chronic) Hospital Course and Treatment Summary of Care Provided: Patient seen by Neo Thomason PA-C under my supervision The patient is a 48 year old M was admitted through the ED with a complaint of recurrent cellulitis of the left lower extremity. He had redness, chills and swelling of the left lower extremity and also had fever, tachycardia and tachypnea. He also had leukocytosis but lactic acid was not not elevated. He was admitted and started on IV Unasyn and managed for sepsis due to left lower extremity cellulitis. Blood cultures were positive for group G strep. White cell count resolved and swelling and redness as well as pain of the left lower extremity resolved. Patient remained stable and he was switched to p.o. Augmentin. He is completed 10 days of therapy. He is to follow-up with his primary care doctor at the [facility] within 1 week and is also to follow-up with a vascular surgeon at the [facility]. Seen and examined prior to discharge. He felt well and had no complaints. Review of stems otherwise negative. Labs and vitals reviewed. Home medication reviewed and reconciled. o/e: Vital Signs Temp Pulse Resp BP Pulse Ox 98.3 F 66 12 120/88 H 100 08/19/19 11:35 08/19/19 11:35 08/19/19 11:35 08/19/19 11:35 08/19/19 11:35 [] General: Alert, Oriented x3, Cooperative HEENT: Atraumatic, PERRLA, EOMI, Normocephalic Neck: Supple, No JVD, Negative Carotid Bruits Lungs: Clear to auscultation, Normal air movement Cardiovascular: Regular rate, No murmurs Abdomen: Bowel Sounds Present, Soft, Non Tender Extremities: Capillary Refill Less than 3 Seconds, Edema - LLE edema. Skin: No breakdown, - -LLE wrapped in JESSY bandage. Musculoskeletal: No Tenderness to Palpation of Joints or Extremities Neurological: Cranial nerves II-XII grossly intact Psych/Mental Status: Normal Affect, Appropriate, Alert and oriented to time, place, person, mood and affect Plan is for discharge home as above. Rest as per Neo Thomason PA-C's notes which I have reviewed and endorsed. - Physical Exam Vitals/I&O's: Vital Signs Temp Pulse Resp BP Pulse Ox 98.3 F 66 12 120/88 H 100 08/19/19 11:35 08/19/19 11:35 08/19/19 11:35 08/19/19 11:35 08/19/19 11:35 Oxygen Delivery Method Room Air Weight: 255 lb Body Mass Index (BMI) 31.8 Intake and Output for Last 24 Hours 08/17/19 08/18/19 08/19/19 23:59 23:59 23:59 Intake Total 1835.67 / 1835.67 2814.66 / 2814.66 336 / 336 Balance 1835.67 / 1835.67 2814.66 / 2814.66 336 / 336 Microbiology Past 72 Hours 08/17/19 13:45 Urine, Clean Catch Urine Culture - Final Culture exhibits no growth. 08/17/19 12:10 Blood Culture (Wb) - Anticubital Left Blood Culture - Preliminary No growth in 48 hours. 08/17/19 12:00 Blood Culture (Wb) - Anticubital Right Blood Culture - Preliminary Streptococcus group G Laboratory Results 08/19/19 05:11: WBC 9.8, RBC 4.48 L, Hgb 12.5 L, Hct 40.0, MCV 89.3, MCH 27.9, MCHC 31.3 L D, RDW Std Deviation 43.5, RDW Coeff of Siri 13.4, Plt Count 144 L, MPV 10.6, Immature Gran % (Auto) 0.300, Neut % (Auto) 76.4 H, Lymph % (Auto) 14.4 L, [place] % (Auto) 7.3, Eos % (Auto) 1.2, Baso % (Auto) 0.4, Absolute Neuts (auto) 7.5, Absolute Lymphs (auto) 1.42, Nucleated RBC % 0 08/19/19 05:11: Sodium 139, Potassium 4.0, Chloride 108 H, Carbon Dioxide 26.0, Anion Gap 5, BUN 14, Creatinine 1.16, Estim Creat Clear Calc 91.06, Est GFR (MDRD) Af Amer 85, Est GFR (MDRD) Non-Af 71, BUN/Creatinine Ratio 12.1, Glucose 100, Calcium 8.6 Inpatient E&M: 57167 Disch Hosp
--- NOTE | 2019-08-21 08:48 | CASEMGMT ---
[facility]. Kamari VALDEZ CM
--- OUTSIDE RECORDS SUMMARY | 2020-01-13 11:48 | XMS RPT_ITS | CCD ---
:1970 External Reference #:[id number] Author Organization [facility] Care Team Providers Name Role Phone Constance HATHAWAY Unavailable Unavailable PROVIDER Unavailable Unavailable PROVIDER Unavailable Unavailable PROVIDER Unavailable Unavailable PROVIDER Unavailable Unavailable No Doctor Assigned Unavailable Unavailable No Doctor Assigned Unavailable Unavailable No Doctor Assigned Unavailable Unavailable Allergies Reported Allergen Reaction(s) Severity Date of Onset Location AMOXICILLIN-POT AOF 01-30-2009 - [place] [facility] CLAVULANATE Translations: [facility] [ AMOXICILLIN-POT CLAVULANATE] Results Result Name Value Range Unit Interpretation Flag Date Location progress on 2016-10 PROGRESS HNO ID: [id number]: Ariadna (Pond Worker) No rmal 11-25-2016 Valdovinoskane Lloyd: (none)Author Type: Clinic Nurse PractitionerType: Starla [place] NotesFiled: 11/25/2016 9:29 AMNote ([id number]) Text:HPI Jace Hartman is a 46 year old male who presents with cellulitis ofhis left lower leg, he states his leg is always swollen but last night hestarted to get cold chills and felt nauseated and vomited multiple times.He has not taken any medication at home. Today he feels tired, weak andshort of breath.Review of SystemsConstitutional: Positive for chills, fever and malaise/fatigue.Respiratory: Positive for shortness of breath.Cardiovascular: Negative. Negative for chest pain.Gastrointestinal: Positive for nausea and vomiting.Musculoskeletal: Positive for myalgias.Skin: Redness left lower legNeurological: Positive for weakness.BP 102/64 Pulse 100 Temp 37.6 ?C (99.7 ?F) (Tympanic) Resp 20 Wt109 kg (240 lb 3.2 oz) BMI 30.43 kg/m2PAST MEDICAL HISTORYDiagnosis Date- Cellulitis 2013 left leg cellulitis/superficial phlebitis- Impaired fasting blood sugar 2014PAST SURGICAL HISTORYProcedure Laterality Date- EXTENSIVE FINGER SURGERY 1999 left 5th digit reattached- REPAIR OF HAMMERTOE,ONE 2012 Right Foot hammer toes and bunionALLERGIES Augmentin [Amoxicillin-Pot Clavulanate]MEDICATIONSCOMPOUNDED PRESCRIPTION Bilateral compression knee-highs 20-30 mmHg. Dx:venous incompetence, venous stasis, superficial venous thrombophlebitis.FAMILY HISTORYProblem Relation Age of Onset- Diabetes Father obese- COPD Father lung transplant- Hypertension Paternal Grandfather- Diabetes Paternal Grandfather- Diabetes Paternal Grandmother- Hypertension Paternal GrandmotherSocial HistorySubstance Use Topics- Smoking status: Never Smoker- Smokeless tobacco: Not on file- Alcohol use NoPhysical ExamConstitutional: He is oriented to person, place, and time. He has a sicklyappearance.Neck: Neck supple.Cardiovascular: Normal rate, regular rhythm and normal heart sounds.Pulmonary/Chest: Effort normal and breath sounds normal. No respiratorydistress.Musculoskeletal: Left lower leg: He exhibits tenderness. Legs:Lymphadenopathy: He has no cervical adenopathy.Neurological: He is alert and oriented to person, place, and time.Skin: Skin is warm and dry. There is erythema (left lower leg andextending to left thigh). There is pallor.Nursing note and vitals reviewed.ASSESSMENT/PLAN:1. Left leg cellulitis - ICD9: 682.6, ICD10: L03.116- Advised patient to seek admission to hospital for parenteralantibiotics-he is likely septic. Patient and his agreed to this planof care. I advised them to go immediately to the ER for treatment.ROSEMARIE Diaz on 2016-11-25 CNOV Office Visit Normal 11-25-2016 Pattie and (UCWSTR) --------JACE HARTMAN E ([id number]) 1970 [facility] e Time Provider Department11/25/16 9:00 AM ARIADNA PITTS (ROSEMARIE) [facility] During your visit tojuan c wilburn, we recorded the following information about you: Temperature Pulse (0000 0) Respiration Blood pressure 9 9.7 degrees 100/minute 20/minute 102/64 Weight 109 kgAriadna ROSEMARIE Bernal 11/25/2016 9:29 AM Signed HPI Jace Hartman is a 46 year old male who presents with cellulitis of hisleft lower leg, he states his leg is always swollen but last night he startedto get cold chills and felt nauseated and vomit ed multiple times. He has nottaken any medication at home. Today he feels tired, weak and short of beatris ath.Review of SystemsConstitutional: Positive for chills, fever and malaise/fatigue.Respiratory: Positive for shortness of breath.Cardiovascular: Negative. Negative for chest pain.Gastrointestinal: Positive for nausea and vomiting.Musculoskeletal: Positive for myalgias.Skin: Redness left lower legNeurological: Positive for weakness.BP 102/64 Pulse 100 Temp 37.6 ?C (99.7 ?F) (Tympanic) Resp 20 Wt 109 kg(240 lb 3.2 oz) BMI 30.43 kg/m2PAST MEDICAL HISTORYDiagnosis Date- Cellu litis 2013 left leg cellulitis/superficial phlebitis- Impaired fasting blood sugar 2013PAST SURGICAL HISTORYProcedure Laterality Date- EXTENSIVE FINGER SURGERY 1999 left 5th digit reattached- R EPAIR OF HAMMERTOE,ONE 2012 Right Foot hammer toes and bunionALLERGIES Augmentin [Amoxicillin-Pot C lavulanate]MEDICATIONSCOMPOUNDED PRESCRIPTION Bilateral compression knee-highs 20-30 mmHg. 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 He has a sicklyappearance.Neck: Neck supple.Cardiovascular: Normal rate, regular rhythm and normal heart sounds.Pulmonary/Chest: Effort normal and breath sounds normal. No respiratorydistre ss.Musculoskeletal: Left lower leg: He exhibits tenderness. Legs:Lymphadenopathy: He has no cervical adenopathy.Neurological: He is alert and oriented to person, place, and time.Skin: Skin i s warm and dry. There is erythema (left lower leg and extending toleft thigh). There is pallor.Nurs ing note and vitals reviewed.ASSESSMENT/PLAN:1. Left leg cellulitis - ICD9: 682.6, ICD10: L03.116- Advised patient to seek admission to hospital for parenteral antibiotics-heis likely dec ic. Patient and his agreed to this plan of care. I advisedthem to go immediately to the ER for tr eatment.Ariadna Bernal CNPReferring Provider: SELF [[id number]]Allergies As of Date: 11/25/2016 Noted Allergy ReactionAUGMENTIN (AMOXICILLIN-POT CLAVUL*01/30/2009 2 - RashDate Reviewed: 7Reviewed by: Ariadna (Pond Worker) Dolores - Fully AssessedReason for Visit: cellulitis left leg [Other] Cmt: x 1 day-had chills and vomited yesterday-has had this same cellulitis in the past 4 jeremie eright uper thigh hurts alsoPrimary Visit Diagnosis:Left leg cellulitis [L03.116]Prescriptions as of 11/25/2016 Sig: COMPOUNDED PRESCRIPTION Bilateral compression knee-hi*Medication notes thi s encounter COMPOUNDED PRESCRIPTION >> Marce Verma LPN 11/25/2016 9:03 AM >> MARCE VERMA LP N Sat Nov 25, 2016 9:03 AM Finished More...Problem List As Of Date 11/25/2016 Noted Resolved Ce llulitis [L03.90] INVALID FOR* More... Status:Closed by ARIADNA BERNAL on 11/25/16 xr foot right on 17-11-07 XR FOOT RIGHT EXAMINATIONXR FOOT RIGHT 3 Normal 11-07-2016 [facility] VIEWS CLINICAL Syste m ([id number]) HISTORYarthropathy; arthritis COMPARISONNone FINDINGSFrontal, lateral and oblique views of the right foot were performed. Extensive postsurgical changes are identified including ORIF of the 1st metatarsal and 1st proximal phalanx with persistent hallux valgus deformity. Moderate osteoarthritic changes of the 1st metatarsal phalangeal joint is noted. Remote resection deformity of the 2nd, 3rd and 4th metatarsal heads are noted as well as resection deformities involving the distal aspects of the 2nd, 3rd and 4th proximal phalanges. There is partial fusion involving the distal aspect of the 2nd and 3rd metatarsals. Contracture deformity of the phalanges are seen. No acute fracture dislocation is noted. No bone destruction is seen. There are degenerative changes of the midfoot. IMPRESSIONExtensive postoperative and degenerative changes as described. MACRONONE xr foot left on 201 10-08-07 XR FOOT LEFT EXAMINATIONXR FOOT LEFT 3 Normal 0 11-07-2016 [facility] VIEWS CLINICAL Syste m ([id number]) HISTORYarthropathy; arthritis Technologist Notes COMPARISONNone FINDINGSThere is no acute fracture, dislocation, abnormal periosteal reaction, or bone destruction. There are degenerative changes at the 1st tarsometatarsal joint, the findings including joint space narrowing, some sclerosis of the articular margins, subchondral cystic changes and spurring. Joint spaces are otherwise maintained. Achilles calcifications. Flexion deformities of several toes. IMPRESSIONNo acute osseous pathology. Degenerative changes at the 1st tarsometatarsal joint as above. Flexion deformity of several toes. Achilles calcifications . MACRONONE Encounters Date Type Reason Provider Location 11-25-2016 - Ambulatory PRASHANT HATHAWAY [place] Jasen harvey 11-28-2016 [place] (0000 0) 11-07-2016 - Ambulatory UNKNOWN PROVIDER Facility:[facility] 11-07-2016 UNKNOWN PROVIDER 11-20-2017 - Patient encounter Nodr No Doctor Facility :[facility] 11-21-2017 Assigned Nodr No Hospital Doctor Assigned Nodr No Doctor Assigned 11-20-2017 Patient encounter Facility:[id number] Payers Payer Name Policy Number Location [employer] [facility] ([id number]) JACE HARTMAN [id number] [facility] Syst em ([id number]) Commercial [id number] [facility] ([id number]) The following information is from the original human readable contentNo Payer Records Found Summary Purpose Family History No Family History Records FoundNo Family History Records FoundNo Family History Records FoundNo Family History Records Found Advance Directives No Advanced Directives Records FoundNo Advanced Directives Records FoundNo Advanced Directives Records FoundNo Advanced Directives Records Found Additional Source Comments FOR RECORDS PERTAINING TO PATIENTS WHO ARE OR HAVE BEEN ENROLLED IN A CHEMICAL DEPENDENCY/SUBSTANCE ABUSE PROGRAM, SOME INFORMATION MAY BE OMITTED. This clinical summary was aggregated from multiple sources. Caution should be exercised in using it in the provision of clinical care. This summary normalizes information from multiple sources, and as a consequence, information in this document may materially changethe coding, format and clinical context of patient data. In addition, data may be omittedin some cases. CLINICAL DECISIONS SHOULD BE BASED ON THE PRIMARY CLINICAL RECORDS. [facility] provides no warranty or guarantee of the accuracy or completeness of information in this document. UNRECOGNIZED CONTENT PROVIDED BELOW FOR UNRECOGNIZED SECTION No Status Records FoundNo Status Records FoundNo Status Records FoundNo Status Records Found UNRECOGNIZED CONTENT PROVIDED BELOW FOR UNRECOGNIZED SECTION INFORMATION SOURCE DATE CREATED AUTHOR AUTHOR'S ORGANIZATIO N 09/26/2017 [facility] DATE CREATED AUTHOR AUTHOR'S ORGANIZATIO N 09/28/2017 [facility] DATE CREATED AUTHOR AUTHOR'S ORGANIZATIO N 11/23/2017 [facility] DATE CREATED AUTHOR AUTHOR'S ORGANIZATIO N 11/24/2017 [facility]
--- OUTSIDE RECORDS SUMMARY | 2020-01-13 11:48 | XMS RPT_ITS | CCD ---
:1970 External Reference #:[id number] Author Organization [facility] Care Team Providers Name Role Phone Constance HATHAWAY Unavailable Unavailable PROVIDER Unavailable Unavailable PROVIDER Unavailable Unavailable PROVIDER Unavailable Unavailable PROVIDER Unavailable Unavailable No Doctor Assigned Unavailable Unavailable No Doctor Assigned Unavailable Unavailable No Doctor Assigned Unavailable Unavailable Allergies Reported Allergen Reaction(s) Severity Date of Onset Location AMOXICILLIN-POT AOF 01-30-2009 - [place] [facility] CLAVULANATE Translations: [place] [facility] Rep[facility] [ AMOXICILLIN-POT CLAVULANATE] Results Result Name Value Range Unit Interpretation Flag Date Location progress on 2016-10 PROGRESS HNO ID: [id number]: Ariadna (Senior Infrastructure Architect) No rmal 11-25-2016 Valdovinoskane Lloyd: (none)Author Type: Clinic Nurse PractitionerType: Starla [place] NotesFiled: 11/25/2016 9:29 AMNote ([id number]) Text:HPI Jace Hartman is a 46 year [...] 11-25-2016 Pattie and (UCWSTR) --------JACE HARTMAN E ([id number]) 1970 [facility] e Time Provider Department11/25/16 9:00 AM ARIADNA PITTS (ROSEMARIE) [facility] During your visit tojuan c wilburn, we [...] Topics- Smoking status: Never Smoker- 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 and 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: Not on file- Alcohol use NoPhysical ExamConstitutional: [...] 2 - RashDate Reviewed: 7Reviewed by: Ariadna (Senior Infrastructure Architect) Dolores - Fully AssessedReason for Visit: cellulitis [...] EXAMINATIONXR FOOT RIGHT 3 Normal 11-07-2016 [facility] VIEWS CLINICAL Syste m ([id number]) HISTORYarthropathy; arthritis COMPARISONNone FINDINGSFrontal, lateral and oblique [...] FOOT LEFT 3 Normal 0 11-07-2016 [facility] VIEWS CLINICAL Syste m ([id number]) HISTORYarthropathy; arthritis Technologist Notes COMPARISONNone FINDINGSThere is [...] Provider Location 11-25-2016 - Ambulatory PRASHANT HATHAWAY [place] Jasen harvey 11-28-2016 [place] (0000 0) 11-07-2016 - Ambulatory UNKNOWN PROVIDER Facility:[facility] 11-07-2016 UNKNOWN PROVIDER 11-20-2017 - Patient encounter Nodr No Doctor Facility :[facility] 11-21-2017 Assigned Nodr No Hospital Doctor Assigned Nodr No Doctor Assigned 11-20-2017 Patient encounter Facility:[id number] Payers Payer Name Policy Number Location [facility] ([id number]) JACE HARTMAN [id number] [facility] ([id number]) Commercial [id number] [facility] ([id number]) The following information is from the original [...] BE BASED ON THE PRIMARY CLINICAL RECORDS. [facility] provides no warranty or guarantee of the accuracy or completeness of information in this document. UNRECOGNIZED CONTENT PROVIDED BELOW FOR UNRECOGNIZED SECTION No Status Records FoundNo Status Records FoundNo Status Records FoundNo Status Records Found UNRECOGNIZED CONTENT PROVIDED BELOW FOR UNRECOGNIZED SECTION INFORMATION SOURCE DATE CREATED AUTHOR AUTHOR'S ORGANIZATIO N 09/26/[address] [facility] DATE CREATED AUTHOR AUTHOR'S ORGANIZATIO N 09/28/2017 [facility] DATE CREATED AUTHOR AUTHOR'S ORGANIZATIO N 11/23/2017 [facility] DATE CREATED AUTHOR AUTHOR'S ORGANIZATIO N 11/24/2017 [facility]
--- OUTSIDE RECORDS SUMMARY | 2020-01-13 11:52 | XMS RPT_ITS | CCD ---
:1970 External Reference #:[id number] Author Organization [facility] Care Team Providers Name Role Phone Constance HATHAWAY Unavailable Unavailable PROVIDER Unavailable Unavailable PROVIDER Unavailable Unavailable PROVIDER Unavailable Unavailable PROVIDER Unavailable Unavailable No Doctor Assigned Unavailable Unavailable No Doctor Assigned Unavailable Unavailable No Doctor Assigned Unavailable Unavailable Allergies Reported Allergen Reaction(s) Severity Date of Onset Location AMOXICILLIN-POT AOF 01-30-2009 - [facility] CLAVULANATE Translations: [place] [facility] [ AMOXICILLIN-POT CLAVULANATE] Results Result Name Value Range Unit Interpretation Flag Date Location progress on 2016-10 PROGRESS HNO ID: [id number]: Ariadna (Signals Intelligence Analyst) No rmal 11-25-2016 Valdovinoskane Lloyd: (none)Author Type: Clinic Nurse PractitionerType: Starla [place] NotesFiled: 11/25/2016 9:29 AMNote ([id number]) Text:HPI Jace Hartman is a 46 year [...] 11-25-2016 Pattie and (UCWSTR) --------JACE HARTMAN E ([id number]) 1970 [facility] e Time Provider Department11/25/16 9:00 AM ARIADNA [facility] During your visit tojuna c wilburn, we recorded the following information [...] Topics- Smoking status: Never Smoker- 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: Not on file- Alcohol use NoPhysical ExamConstitutional: [...] 2 - RashDate Reviewed: 7Reviewed by: Ariadna (Signals Intelligence Analyst) Dolores - Fully AssessedReason for Visit: cellulitis [...] EXAMINATIONXR FOOT RIGHT 3 Normal 11-07-2016 [facility] VIEWS CLINICAL Syste m ([id number]) HISTORYarthropathy; arthritis COMPARISONNone FINDINGSFrontal, lateral and oblique [...] FOOT LEFT 3 Normal 0 11-07-2016 [facility] VIEWS CLINICAL Syste m ([id number]) HISTORYarthropathy; arthritis Technologist Notes COMPARISONNone FINDINGSThere is [...] Provider Location 11-25-2016 - Ambulatory PRASHANT HATHAWAY [place] Jasen [facility] 11-28-2016 [facility] (0000 0) 11-07-2016 - Ambulatory UNKNOWN PROVIDER Facility:[facility] 11-07-2016 UNKNOWN PROVIDER 11-20-2017 - Patient encounter Nodr No Doctor Facility :[facility] 11-21-2017 Assigned Nodr No Hospital Doctor Assigned Nodr No Doctor Assigned 11-20-2017 Patient encounter Facility:[id number] 509 Payers Payer Name Policy Number Location [facility] ([id number]) JACE HARTMAN [id number] [facility] em ([id number]) Commercial [id number] [facility] ([id number]) The following information is from the original [...] BE BASED ON THE PRIMARY CLINICAL RECORDS. [facility] provides no warranty or guarantee of the accuracy or completeness of information in this document. UNRECOGNIZED CONTENT PROVIDED BELOW FOR UNRECOGNIZED SECTION No Status Records FoundNo Status Records FoundNo Status Records FoundNo Status Records Found UNRECOGNIZED CONTENT PROVIDED BELOW FOR UNRECOGNIZED SECTION INFORMATION SOURCE DATE CREATED AUTHOR AUTHOR'S ORGANIZATIO N 09/26/2017 [facility] DATE CREATED AUTHOR AUTHOR'S ORGANIZATIO N 09/28/2017 [facility] DATE CREATED AUTHOR AUTHOR'S ORGANIZATIO N 11/23/2017 [facility] DATE CREATED AUTHOR AUTHOR'S ORGANIZATIO N 11/24/2017 [facility]
--- OUTSIDE RECORDS SUMMARY | 2020-01-13 11:52 | XMS RPT_ITS | CCD ---
:1970 External Reference #:[id number] Author [address] [facility] Care Team Providers Name Role Phone Constance HATHAWAY Unavailable Unavailable PROVIDER Unavailable Unavailable PROVIDER Unavailable Unavailable PROVIDER Unavailable Unavailable PROVIDER Unavailable Unavailable No Doctor Assigned Unavailable Unavailable No Doctor Assigned Unavailable Unavailable No Doctor Assigned Unavailable Unavailable Allergies Reported Allergen Reaction(s) Severity Date of Onset Location AMOXICILLIN-POT AOF 01-30-2009 - [place] [facility] CLAVULANATE Translations: [facility] [ AMOXICILLIN-POT CLAVULANATE] Results Result Name Value Range Unit Interpretation Flag Date Location progress on 2016-10 PROGRESS HNO ID: [id number]: Ariadna (Interventional Radiology Tech) No rmal 11-25-2016 Valdovinoskane Lloyd: (none)Author Type: Clinic Nurse PractitionerType: Starla [place] NotesFiled: 11/25/2016 9:29 AMNote ([id number]) Text:HPI Jace Hartman is a 46 year [...] 11-25-2016 Pattie and (UCWSTR) --------JACE HARTMAN E ([id number]) 1970 [facility] e Time Provider Department11/25/16 9:00 AM ARIADNA PITTS ([place]) [facility] During your visit tojuan c wilburn, [...] Topics- Smoking status: Never Smoker- 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: Not on file- Alcohol use NoPhysical ExamConstitutional: [...] 2 - RashDate Reviewed: 7Reviewed by: Ariadna (Interventional Radiology Tech) Dolores - Fully AssessedReason for Visit: cellulitis [...] EXAMINATIONXR FOOT RIGHT 3 Normal 11-07-2016 [facility] VIEWS CLINICAL Syste m ([id number]) HISTORYarthropathy; arthritis COMPARISONNone FINDINGSFrontal, lateral and oblique [...] FOOT LEFT 3 Normal 0 11-07-2016 [facility] VIEWS CLINICAL Syste m ([id number]) HISTORYarthropathy; arthritis Technologist Notes COMPARISONNone FINDINGSThere is [...] Provider Location 11-25-2016 - Ambulatory PRASHANT HATHAWAY [place] Jasen harvey 11-28-2016 [place] ([phone]) 11-07-2016 - Ambulatory UNKNOWN PROVIDER Facility:[facility] 11-07-2016 UNKNOWN PROVIDER 11-20-2017 - Patient encounter Nodr No Doctor Facility :[facility] 11-21-2017 Assigned Nodr No Hospital Doctor Assigned Nodr No Doctor Assigned 11-20-2017 Patient encounter Facility:[id number] 509 Payers Payer Name Policy Number Location [facility] ([id number]) JACE HARTMAN [id number] [facility] em ([id number]) Commercial [id number] [facility] ([id number]) The following information is from the original [...] BE BASED ON THE PRIMARY CLINICAL RECORDS. [facility] provides no warranty or guarantee of the accuracy or completeness of information in this document. UNRECOGNIZED CONTENT PROVIDED BELOW FOR UNRECOGNIZED SECTION No Status Records FoundNo Status Records FoundNo Status Records FoundNo Status Records Found UNRECOGNIZED CONTENT PROVIDED BELOW FOR UNRECOGNIZED SECTION INFORMATION SOURCE DATE CREATED AUTHOR AUTHOR'S ORGANIZATIO N 09/26/2017 [facility] DATE CREATED AUTHOR AUTHOR'S ORGANIZATIO N 09/28/2017 [facility] DATE CREATED AUTHOR AUTHOR'S ORGANIZATIO N 11/23/2017 [facility] DATE CREATED AUTHOR AUTHOR'S ORGANIZATIO N 11/24/2017 [facility]
== END 2019-08-19 12:37 | disposition home or self-care (01) | DRG 872 ==
LOC: ED 15:34 → MS3 16:54
PROVIDERS: Admitting Provider Internal Medicine; Emergency Provider Emergency Medicine; Visit Provider Student in an Organized Health Care Education/Training Program
DX: A40.8 Other streptococcal sepsis (principal); L03.116 Cellulitis of left lower limb; I87.8 Other specified disorders of veins
CPT/HCPCS: 36415; 71045; 80048; 80053; 81001; 83605; 85025; 85610; 85730; 87040; 87077; 87086; 87186; 93005; 96365; 97802; 99285; J7030; A4216; J0295

== ENCOUNTER 2019-10-20 06:51 | Inpatient (IN) | payer OTHER, BC, SELFPAY ==
[2019-08-17 17:28] VITALS: BMI 31.8
[2019-10-20] VITALS (14 sets, daily range): BP systolic 107–153; BP diastolic 56–98; PULSE 73–104; RESP 12–20; TEMP 36.6–38.9; O2SAT 84–99; BMI 32.5; BMI 31.6
--- NOTE | 2019-10-20 07:01 | RAD_ITS ---
STUDY: X-RAY CHEST REASON FOR EXAM: Male, 49 years old. Cough. TECHNIQUE: Frontal view COMPARISON: August 17, 2019 FINDINGS: The lungs are clear and expanded. There is no demonstrated pleural abnormality. Normal size heart. Normal mediastinum and keshawn. Normal visualized pulmonary arteries. Normal visualized aortic arch and descending thoracic aorta. Normal visualized thoracic spine. Normal visualized ribs, clavicles, and shoulders. There is no demonstrated abnormality of the visualized soft tissue structures of the upper abdomen. RAD/Chest 1 View (Portable) IMPRESSION: Normal x-ray examination of the chest. Electronically Signed: Theodore Doan MD at 7:41 EDT , Service support ,
--- NOTE | 2019-10-20 07:02 | ED.DCSUM_ITS ---
- ER Visit Summary Date of Service: 10/20/19 Chief Complaint: Cellulitis left leg History of Present Illness: The patient is a 49 M who goes to the [facility]. He reports that he has had recurrent cellulitis to his left leg. States the last episode was approximately 2 months ago and was treated with Keflex. Reports that he has subjective fever and chills that began yesterday. This morning his left leg is red and warm. Patient reports that he has had a cough for the past week productive white sputu m without blood. He has mild shortness of breath. He denies abdominal pain. He reports is been nausea and vomited 3 times today. No blood in his emesis. No diarrhea. No dysuria or frequency. He does complain of generalized weakness. Physical Examination: Vitals: Stable. Afebrile. General: Well-nourished and well-developed. Head: Normocephalic atraumatic. Neck: Supple, no lymphadenopathy. No JVD. Nontender. Cardiovascular: Tachycardic regular rhythm. No murmurs. Respiratory: No respiratory distress. Clear to auscultation bilaterally. Abdominal: Soft, nontender, nondistended, normal bowel sounds. No guarding, rebound, or peritoneal signs. Back: Nontender. Extremities: Nontender, 2+ edema of his left leg with erythema and warmth. Neurologic: Alert and oriented ?3. Cranial nerves II through XII are intact. Normal strength and sensation. Psych: Normal affect. Test Results: CBC shows a white count of 11.5 with 89 segmented arnold and 8 lymphocytes. Lactic acid is 1.5. Chem-7 shows a chloride of 108 and BUN of 20. LFTs are normal. UA is normal. Chest x-ray shows no acute disease. Emergency Department Course and Treatment: Patient had an IV placed. He was given a liter of normal saline. He was given Tylenol and Zofran. Is given dose of vancomycin IV. While he was here his pulse ox dropped into the high 80s. He was placed on 2 L of oxygen and had a COVID-19 test sent. He also had a Doppler ultrasound of his left leg that was negative. Treatment Plan: Patient has recurrent cellulitis to his left leg and is hypoxic. He will be discussed with the hospitalist and admitted for further evaluation treatment. Disposition: Admitted in improved condition. Impression: 1. Cellulitis left leg, recurrent. 2. Hypoxia. 3. Sepsis. This note was generated with [employer] dictation software. It may contain incorrect words, spelling, and punctuation that were not noted in review of the chart prior to signing ED Disposition - Plan for ED Patient: [facility] [[facility] Provider] -
[2019-10-20] MEDS: 0.9% Normal Saline 1,000 ML 999 ML IV (07:05)
[2019-10-20 07:09] LABS: Absolute Neutrophil Count 10.2 X10^3/uL (2.0-7.7); Basophil# 0.02 X10^3/uL; Basophil% 0.2 % (0-1); Eosinophil# 0.12 X10^3/uL; Hematocrit 40.9 % (40-54); Hemoglobin 13.9 g/dL (13.0-16.5); Lymphocyte % 7.8 % (19-41); Mean Corpuscular Hgb 29.6 pg (27.0-32.0); Mean Platelet Vol. 9.9 fl (6.2-12.0); Monocyte% 1.7 % (0-10); NRBC Flagged by Analyzer 0 % (0-5); Neutrophil # 10.23 X10^3/uL (2.7-7.7); Platelet Count 172 K/mm3 (150-450); RBC Distribution Width CV 12.8 % (11.6-14.6); RBC Distribution Width SD 40.3 fl (35.1-43.9); White Blood Count 11.5 K/mm3 (4.4-11.0)
[2019-10-20] MEDS: Acetaminophen 500 MG Tablet 1000 MG PO (07:21)
[2019-10-20] MEDS: Ondansetron 4 MG/2 ML Vial IV (07:22)
[2019-10-20 07:27] LABS: AST(SGOT) 19 U/L (15-37); Alanine Aminotransfer ALT/SGPT 32 U/L (16-61); Alkaline Phosphatase 74 U/L (45-117); Anion Gap 4 (5-15); BUN 20 mg/dL (7-18); BUN/Creat Ratio 16.9 RATIO (10-20); Calcium,Total 8.7 mg/dL (8.5-10.1); Chloride 108 mmol/L (98-107); Creatinine, Serum 1.18 mg/dL (0.70-1.30); EST Glomerular Filtration Rate 69 mL/min (>60); Est Glom Filt Rate - Afr Amer 84 mL/min (>60); Estimated Creatinine Clearance 88.52 ml/min; Glucose 108 mg/dL (74-106); Potassium 3.9 mmol/L (3.5-5.1); Sodium Level 142 mmol/L (136-145)
[2019-10-20 07:27] LABS: Bacteria 0 SEEN /hpf (None Seen); Mucous, Urine 0 SEEN /hpf (<or=2+); Red Blood Cells-Urine 0 SEEN /hpf (0-5); White Blood Cells 0 SEEN /hpf (0-5)
[2019-10-20 07:38] LABS: Color, Urine Yellow (Yellow); Glucose, Dipstick Normal (Normal); Ketone-Dipstick Negative (Negative); Leukocyte Esterase-Dipstick Negative /ul (Negative); Nitrite-Dipstick Negative (Negative); Occult Blood-Urine Negative /ul (Negative); Protein-Dipstick Negative (Negative); Urine Bilirubin Dipstick Negative (Negative); Urine Clarity Sl. Cloudy (Clear); Urine Urobilinogen Normal (Normal)
[2019-10-20 07:42] LABS: Lactic Acid 1.5 mmol/L (0.4-1.9)
[2019-10-20 07:44] LABS: Amorphous Sediment 2+; Squamous Epithelial Cells - UA 0-5 SEEN /hpf (0-5)
--- NOTE | 2019-10-20 08:04 | VDLE_ITS ---
Reason For Study: Swelling Procedure LEFT Exam performed portable in ED. CFV, FV and PopV are compressible. The exam was abbreviated due to the COVID 19 T/P Trunk is compressible. protocol. PTV is compressible. A preliminary report was called and/or faxed LT PerV is compressible. to Akira. Interpretation Summary There is no evidence of left lower extremity deep vein thrombosis. Abbreviated Covid-19 protocol Ordering Physician: Rafael Champion Referring Physician: [facility] Performed By: Shirley Matthews RVT
[2019-10-20 08:42] LABS: Partial Thromboplast Time 27.4 Seconds (24.1-36.2); Prothrombin Time (Protime)PT. 12.6 SECONDS (11.7-14.9)
[2019-10-20] MEDS: Ibuprofen 400 MG Tablet 800 MG PO (08:49)
--- NOTE | 2019-10-20 09:16 | HP.PCM_ITS ---
Problem List (1) Cellulitis of left lower leg Status: Acute (2) Sepsis Status: Acute Qualifiers: Sepsis type: sepsis due to unspecified organism Sepsis acute organ dysfunction status: without acute organ dysfunction Qualified Code(s): A41.9 - Sepsis, unspecified organism History of Present Illness Date of Admission: 10/20/19 Chief Complaint: Left lower extremity swelling - 1 day The patient is a 49 year old M with PMHx of recurrent left lower extremity cellulitis who comes in with complaints of left lower extremity swelling and heath thema as well as fever and chills that started on the morning of admission. Last had cellulitis 2 months ago, was treated with Keflex. He denied any trauma or cuts or insect bite to his lower extremity. He started having chills and fever with and came home and noticed his lower extremity getting swollen and red. In the ED, vitals showed temperature of 100.3F, heart rate 104, blood pressure 153/98, respiratory rate 90, SPO2 was 95% on room air. WBC count is 11.5, hemoglobin 13.9, platelet count 172, INR 1.0, APTT 27.4, sodium 142, potassium showed no acute abnormality. .9, chloride 108, bicarbonate 30, BUN 20, creatinine 1.18, left is were unremarkable, urine was slightly cloudy, nitrite negative, leukocyte esterase negative, WBC negative. Chest x-ray showed no acute abnormality. Doppler ultrasound of the lower extremity showed no acute DVT in the left. COVID-19 testing was negative. Past Medical History Past Medical History (Chronic Problems): Chronic Problems Venous stasis of lower extremity (Chronic) Allergies No Known Allergies Allergy (Verified 10/20/19 06:56) Home Medications: Ambulatory Orders Medication Instructions Recorded NK 10/20/19 Surgical History: - - Bunion surgery, reattachment of left little finger secondary to traumatic injury Psychiatric History: No pertinent psych hx Lives: Spouse/ Significant Other Smoking Status: Never smoker Tobacco Use: Non-smoker - *Family History Paternal History Items: Diabetes, Heart Disease, - - Lung disease Sibling History Items: No pertinent history Review of Systems Constitutional: Reports: Anorexia, Chills, Fever, Weakness. Denies: Weight Change, Fatigue Eyes: Denies: Blurred vision, Cataracts, Conjunctivae Inflammation, Pain, Redness, Vision Change HEENT: Denies: Difficulty Hearing, Difficulty Swallowing, Head Aches, Hearing Changes, Nasal bleeding, Sinus Congestion, Sinus Drainage Cardiovascular: Denies: Chest Pain, Claudication, Orthopnea, Palpitations, Paroxysmal Noc. Dyspnea Respiratory: Denies: Cough, Shortness of Breath, Shortness of breath at rest, Shortness of breath upon exertion, Sputum production Gastrointestinal: Denies: Abdominal Pain, Constipation, Hematemesis, Hematochezia, Nausea, Vomiting Genitourinary: Denies: Dysuria, Frequency, Incontinence Musculoskeletal: Denies: Joint Pain, Joint stiffness, Joint swelling, Joint Tenderness Skin: Reports: Skin Changes - redness of skin. Denies: Wounds Neurological: Denies: Difficulty swallowing, Focal weakness, Numbness, Tingling Psychiatric: Denies: Anxiety, Depression, Homicidal Ideations, Suicidal I deations Hematologic/ Lymphatic: Denies: Easy Bruising, Easy Bleeding VTE Information - Inpt Only VTE Present on Admission: No VTE Pharm Prophylaxis ordered?: Yes - Physical Exam Vitals/I&O's: Vital Signs Temp Pulse Resp BP Pulse Ox 99.4 F H 91 12 109/59 L 97 10/20/19 09:00 10/20/19 09:00 10/20/19 09:00 10/20/19 09:00 10/20/19 09:00 Oxygen Flow Rate (L/min) 2 Oxygen Delivery Method Nasal Cannula Weight: 118.1 kg Body Mass Index (BMI) 32.5 Intake and Output for Last 24 Hours 10/18/19 10/19/19 10/20/19 23:59 23:59 23:59 Intake Total 1000 / 1000 Balance 1000 / 1000 General: Alert, Oriented x3, Cooperative, No apparent distress HEENT: Atraumatic, PERRLA, EOMI, Normocephalic Oral: Moist Mucosa Neck: Supple Lungs: Clear to auscultation, Normal air movement Cardiovascular: Regular rate, Regular Rhythm, Normal S1, Normal S2, No murmurs Abdomen: Bowel Sounds Present, Soft, Non Tender, Non-Distended, No Hepato- splenomegaly Extremities: Edema - bilateral leg edema +1 Skin: - - erythema of left leg Musculoskeletal: No Tenderness to Palpation of Joints or Extremities Lymphatic: No Cervical, Supraclavicular, or Inguinal Adenopathy Neurological: Cranial nerves II-XII grossly intact, Neuro grossly intact Psych/Mental Status: Normal Affect, Appropriate Laboratory Results 10/20/19 06:55: WBC 11.5 H, RBC 4.70, Hgb 13.9, Hct 40.9, MCV 87.0, MCH 29.6, MCHC 34.0, RDW Std Deviation 40.3, RDW Coeff of Siri 12.8, Plt Count 172, MPV 9.9, Immature Gran % (Auto) 0.300, Neut % (Auto) 89.0 H, Lymph % (Auto) 7.8 L, [place] % (Auto) 1.7, Eos % (Auto) 1.0, Baso % (Auto) 0.2, Absolute Neuts (auto) 10.2 H, Absolute Lymphs (auto) 0.90, Nucleated RBC % 0 10/20/19 06:55: PT 12.6, INR 1.0, APTT 27.4 10/20/19 06:55: Sodium 142, Potassium 3.9, Chloride 108 H, Carbon Dioxide 30.0, Anion Gap 4 L, BUN 20 H, Creatinine 1.18, Estim Creat Clear Calc 88.52, Est GFR (MDRD) Af Amer 84, Est GFR (MDRD) Non-Af 69, BUN/Creatinine Ratio 16.9, Glucose 108 H, Calcium 8.7, Total Bilirubin 0.50, AST 19, ALT 32, Alkaline Phosphatase 74, Total Protein 8.0, Albumin 4.0, Globulin 4.0, Albumin/Globulin Ratio 1.0 10/20/19 06:55: Lactic Acid 1.5 10/20/19 07:05: Urine Color Yellow, Urine Clarity Sl. Cloudy, Urine pH 7.0, Ur Specific [place] 1.010, Urine Protein Negative, Urine Glucose (UA) Normal, Urine Ketones Negative, Urine Occult Blood Negative, Urine Nitrite Negative, Urine Bilirubin Negative, Urine Urobilinogen Normal, Ur Leukocyte Esterase Negative, Urine RBC 0 SEEN, Urine WBC 0 SEEN, Ur Squamous Epith Cells 0-5 SEEN, Amorphous Sediment 2+, Urine Bacteria 0 SEEN, Urine Mucus 0 SEEN 10/20/19 08:30: COVID-19 (FLOR) Pending Current Medications Vancomycin HCl 1,750 mg/ (Sodium Chloride) 535 mls @ 250 mls/hr IV X1 ONE Stop: 10/20/19 10:08 Last Admin: 10/20/19 08:25 Dose: 250 mls/hr Documented by: Ampicillin Sodium/Sulbactam (Sodium 3 gm/ Sodium Chloride) 112 mls @ 150 mls/hr IV X1 ONE Stop: 10/20/19 09:31 Assessment/Plan All Active Problems Cellulitis of left lower leg (Acute) Sepsis (Acute) redness of left leg (Acute) 1. Sepsis secondary to acute left lower leg cellulitis, present on admission Lactic acid is 1.5. Blood cultures pending from the ED Started on IV vancomycin and Unasyn We will continue on IV Unasyn, gentle IV fluids, repeat labs in a.m. 2. Hypoxia, likely related to #1, noted in the ED, Resolved at time of exam Admitting chest x-ray was unremarkable. COVID-19 test was negative 3. Chronic venous insufficiency left lower extremity Patient will need to follow-up with vascular surgery 4. DVT prophylaxis with Lovenox subcu Inpatient E&M: 23842 Init Hosp L3
--- NOTE | 2019-10-20 13:19 | PCM.RX.CS ---
Consult Pharmacy has been consulted to manage selected antiobiotic: Vancomycin Type of Consult: New start Suspected Infection: Sepsis, Skin/Soft tissue Prior Doses of Antibiotics Received/Current Regimen: Received 1750mg iv in ER today @0825. Labs: Sodium 142 mmol/L (136-145) 10/20/19 06:55 Potassium 3.9 mmol/L (3.5-5.1) 10/20/19 06:55 Chloride 108 mmol/L (98-107) H 10/20/19 06:55 Carbon Dioxide 30.0 mmol/L (21.0-32.0) 10/20/19 06:55 Anion Gap 4 (5-15) L 10/20/19 06:55 BUN 20 mg/dL (7-18) H 10/20/19 06:55 Creatinine 1.18 mg/dL (0.70-1.30) 10/20/19 06:55 Est GFR (MDRD) Af Amer 84 mL/min (>60) 10/20/19 06:55 Est GFR (MDRD) Non-Af 69 mL/min (>60) 10/20/19 06:55 BUN/Creatinine Ratio 16.9 RATIO (10-20) 10/20/19 06:55 Glucose 108 mg/dL (74-106) H 10/20/19 06:55 Weight used for dosin.8 kg Estimated Creatinine Clearance: ~89ml/min Goal Trough: 15-20 mcg/mL Pharmacy Plan for Drug Dosing: Will begin 2000mg iv q12h per protocol. Trough level ordered for before 4th total dose on 10.21.19. Pharmacy Service will continue to monitor and adjust dosing as required. Follow-Up Labs: Trough Vancomycin - 10.21.19 @1930 before 2000 dose
[2019-10-20] MEDS: 0.9% Normal Saline 1,000 ML 100 ML IV (14:23)
[2019-10-20] MEDS: Enoxaparin 40 MG/0.4 ML Syringe SC (14:23)
[2019-10-20] MEDS: Acetaminophen 325 MG Tablet 650 MG PO (20:18)
[2019-10-21] VITALS: BP 100/54; PULSE 84; RESP 18; TEMP 37.8; O2SAT 96
[2019-10-21] MEDS: 0.9% Normal Saline 1,000 ML 100 ML IV (01:22)
[2019-10-21] MEDS: Acetaminophen 325 MG Tablet 650 MG PO ×2 (02:56→14:30)
[2019-10-21 03:00] VITALS: BP 118/60; PULSE 94; RESP 18; TEMP 38.2; O2SAT 95
[2019-10-21 05:23] VITALS: TEMP 37
[2019-10-21 05:53] LABS: Absolute Lymphocyte Count 0.65 X10^3/uL (0.83-4.51); Absolute Neutrophil Count 15.5 X10^3/uL (2.0-7.7); Basophil# 0.03 X10^3/uL; Basophil% 0.2 % (0-1); Eosinophil# 0.05 X10^3/uL; Eosinophils% 0.3 % (0-5); Hematocrit 34.1 % (40-54); Hemoglobin 11.7 g/dL (13.0-16.5); Lymphocyte # 0.65 X10^3/ul (4.0); Lymphocyte % 3.7 % (19-41); Mean Corp Hgb Conc 34.3 g/dL (32-36); Mean Corpuscular Hgb 29.8 pg (27.0-32.0); Monocyte# 0.55 X10^3/uL; Monocyte% 3.1 % (0-10); NRBC Flagged by Analyzer 0 % (0-5); Neutrophil # 15.47 X10^3/uL (2.7-7.7); Neutrophil % 88.1 % (47-70); POSITIVE MORPHOLOGY YES; Platelet Count 142 K/mm3 (150-450); RBC Distribution Width CV 13.2 % (11.6-14.6); RBC Distribution Width SD 41.3 fl (35.1-43.9); Red Blood Count 3.92 M/mm3 (4.6-6.2); White Blood Count 17.6 K/mm3 (4.4-11.0)
[2019-10-21 06:03] LABS: Differential Indicated SCAN CRITERIA MET
[2019-10-21 06:05] LABS: ALB/GLOB Ratio 0.8 RATIO (0.9-2.4); AST(SGOT) 24 U/L (15-37); Alanine Aminotransfer ALT/SGPT 35 U/L (16-61); Albumin, Serum 2.7 g/dL (3.2-5.0); Alkaline Phosphatase 51 U/L (45-117); Anion Gap 5 (5-15); BUN 17 mg/dL (7-18); BUN/Creat Ratio 14.3 RATIO (10-20); Calcium,Total 7.9 mg/dL (8.5-10.1); Chloride 109 mmol/L (98-107); Creatinine, Serum 1.19 mg/dL (0.70-1.30); EST Glomerular Filtration Rate 69 mL/min (>60); Est Glom Filt Rate - Afr Amer 83 mL/min (>60); Estimated Creatinine Clearance 87.77 ml/min; Globulin 3.5 g/dL (2.2-4.2); Glucose 139 mg/dL (74-106); Potassium 3.7 mmol/L (3.5-5.1); Protein, Total 6.2 g/dL (6.4-8.2); Sodium Level 139 mmol/L (136-145)
[2019-10-21 06:44] LABS: Differential Comment SCANNED
[2019-10-21] MEDS: 0.9% Normal Saline 1,000 ML 75 ML IV ×2 (08:20→22:09)
[2019-10-21] MEDS: Enoxaparin 40 MG/0.4 ML Syringe SC (08:22)
[2019-10-21 08:26] VITALS: BP 117/69; PULSE 64; RESP 18; TEMP 36.9; O2SAT 98
--- NOTE | 2019-10-21 09:59 | ECHOD_ITS ---
Reason For Study: strep bacteremia Procedure This was a 2D Doppler, Color Flow transthoracic echocardiogram. Exam performed portable in patient room. Left Ventricle Normal LV size. Left ventricular systolic function is normal. The estimated ejection fraction is 65 %. Transmitral doppler flow suggestive of impaired relaxation of left ventricle. No regional wall motion abnormalities noted. Right Ventricle Normal RV size. Normal systolic function. Atria Normal left atrium. Normal right atrium. No doppler evidence for ASD. Mitral Valve There is no mitral annular calcification. Normal mitral valve. Trivial mitral valve insufficiency. Tricuspid Valve Normal tricuspid valve. Trivial tricuspid valve insufficiency. Right ventricular systolic pressure estimated to be 30 mmHg. Aortic Valve Trisinus/trileaflet aortic valve. Normal aortic valve. Pulmonic Valve The pulmonic valve is not well visualized. Great Vessels Normal sized aortic root. Pericardium/Pleural No pericardial effusion. MMode/2D Measurements & Calculations LVIDd: 5.1 cm IVSd: 1.1 cm LVOT diam: 2.2 cm LVIDs: 3.3 cm LVPWd: 1.1 cm LVOT area: 3.8 cm2 RVDd: 3.6 cm FS: 36.0 % Ao root diam: 3.9 cm LAV(MOD-bp): 84.4 ml LA A4 area: 25.9 cm2 LAV(MOD-bp) Indexed: 34.9 ml/m2 LAV(MOD-sp2): 74.4 ml LAV(MOD-sp4): 88.0 ml LA dimension(2D): 4.4 cm RA A4 area: 19.5 cm2 Time Measurements MV dec time: 0.21 sec Doppler Measurements & Calculations MV E max nazario: 78.7 cm/sec Lat Peak E' Nazario: 14.1 cm/sec Med Peak E' Nazario: 12.0 cm/sec MV A max nazario: 88.9 cm/sec E/E' lat: 5.6 E/E' med: 6.5 MV E/A: 0.89 Ao V2 max: 193.5 cm/sec LV V1 max: 132.7 cm/sec SV(LVOT): 84.3 ml Ao max P.0 mmHg LV V1 max P.1 mmHg Ao V2 mean: 138.6 cm/sec LV V1 mean P.8 mmHg Ao mean P.2 mmHg LV V1 mean: 92.7 cm/sec Ao V2 VTI: 32.5 cm LV V1 VTI: 22.5 cm CANDACE(I,D): 2.6 cm2 CANDACE(V,D): 2.6 cm2 PA V2 max: 107.6 cm/sec TR max nazario: 261.2 cm/sec TR max P.3 mmHg Interpretation Summary Left ventricular systolic function is normal. The estimated ejection fraction is 65 %. Trivial mitral valve insufficiency. Trivial tricuspid valve insufficiency. Right ventricular systolic pressure estimated to be 30 mmHg. Transmitral doppler flow suggestive of impaired relaxation of left ventricle Ordering Physician: Mary Martinez Referring Physician: [facility] Performed By: Coretta Wallis RDCS, RVT
--- NOTE | 2019-10-21 10:06 | PCM.PN.HOSP ---
Reason for Visit: Follow-up on left lower leg cellulitis. Subjective: Patient was seen and examined. Patient complains of fever with night sweats and feeling nauseous last night. Feels improved this morning. No diarrhea or abdominal pain. Lower extremity erythema and swelling remains the same or slightly improved. Objective: Physical exam: General: Alert, Oriented x3, Cooperative, No apparent distress HEENT: Atraumatic, PERRLA, EOMI, Normocephalic Oral: Moist Mucosa Neck: Supple Lungs: Clear to auscultation, Normal air movement Cardiovascular: Regular rate, Regular Rhythm, Normal S1, Normal S2, No murmurs Abdomen: Bowel Sounds Present, Soft, Non Tender, Non-Distended, No Hepato-splenomegaly Extremities: Edema - bilateral leg edema +1 Skin: - - erythema of left leg, not worsening beyond marked areas Musculoskeletal: No Tenderness to Palpation of Joints or Extremities Lymphatic: No Cervical, Supraclavicular, or Inguinal Adenopathy Neurological: Cranial nerves II-XII grossly intact, Neuro grossly intact Psych/Mental Status: Normal Affect, Appropriate Vitals/I&O's: Vital Signs Temp Pulse Resp BP Pulse Ox 98.4 F 64 18 117/69 98 10/21/19 08:26 10/21/19 08:26 10/21/19 08:26 10/21/19 08:26 10/21/19 08:26 Oxygen Flow Rate (L/min) 2 Oxygen Delivery Method Room Air Weight: 114.5 kg Body Mass Index (BMI) 31.6 Intake and Output for Last 24 Hours 10/19/19 10/20/19 10/21/19 23:59 23:59 23:59 Intake Total 4119 / 4119 1427.33 / 1427.33 Balance 4119 / 4119 1427.33 / 1427.33 Microbiology Past 72 Hours 10/20/19 06:55 Blood Culture (Wb) - Anticubital Right Bacteria Detection (PCR) - Final Strep not Strep pneumo 10/20/19 06:55 Blood Culture (Wb) - Anticubital Right Blood Culture - Preliminary 10/20/19 08:00 Blood Culture (Wb) - Anticubital Right Blood Culture - Preliminary Laboratory Results 10/20/19 08:30: COVID-19 (FLOR) Not Detected 10/21/19 05:30: WBC 17.6 H, RBC 3.92 L, Hgb 11.7 L, Hct 34.1 L, MCV 87.0, MCH 29.8, MCHC 34.3, RDW Std Deviation 41.3, RDW Coeff of Siri 13.2, Plt Count 142 L, MPV 10.0, Immature Gran % (Auto) 4.600 H, Neut % (Auto) 88.1 H, Lymph % (Auto) 3.7 L, [place] % (Auto) 3.1, Eos % (Auto) 0.3, Baso % (Auto) 0.2, Absolute Neuts (auto) 15.5 H, Absolute Lymphs (auto) 0.65 L, Nucleated RBC % 0, Differential Comment SCANNED 10/21/19 05:30: Sodium 139, Potassium 3.7, Chloride 109 H, Carbon Dioxide 25.0, Anion Gap 5, BUN 17, Creatinine 1.19, Estim Creat Clear Calc 87.77, Est GFR (MDRD) Af Amer 83, Est GFR (MDRD) Non-Af 69, BUN/Creatinine Ratio 14.3, Glucose 139 H, Calcium 7.9 L, Total Bilirubin 0.50, AST 24, ALT 35, Alkaline Phosphatase 51, Total Protein 6.2 L, Albumin 2.7 L, Globulin 3.5, Albumin/Globulin Ratio 0.8 L Current Medications Acetaminophen (Tylenol) 650 mg PO Q6H PRN PRN PRN Reason: Pain Score 1-10/Temp > 100.7 F Last Admin: 10/21/19 02:56 Dose: 650 mg Documented by: Al Hydroxide/Mg Hydroxide (Mylanta Ii) 30 ml PO Q6H PRN PRN PRN Reason: Gastric Burning Enoxaparin Sodium (Lovenox) 40 mg SC DAILY [facility] Last Admin: 10/21/19 08:22 Dose: 40 mg Documented by: Sodium Chloride () 1,000 mls @ 75 mls/hr IV .[id number] [facility] Last Infusion: 10/21/19 08:44 Dose: 0 mls/hr Documented by: Ceftriaxone Sodium 2 gm/ (Sodium Chloride) 50 mls @ 100 mls/hr IV Q24 [facility] Last Admin: 10/21/19 08:43 Dose: 100 mls/hr Documented by: Ondansetron HCl (Zofran) 4 mg IV Q8H PRN PRN PRN Reason: NAUSEA/VOMITING Sodium Chloride () 10 - 40 ml IV UD PRN PRN Reason: SALINE FLUSH STROKE Vital Signs/Narrative: Vital Signs Temp Pulse Resp BP Pulse Ox 10/21/19 08:26 98.4 F 64 18 117/69 98 Medical Necessity - Tobacco Use Smoking Status: Never smoker Tobacco Use: Non-smoker Assessment/Plan All Active Problems Cellulitis of left lower leg (Acute) Sepsis (Acute) redness of left leg (Acute) 1. Sepsis/ strep bacteremia secondary to acute left lower leg cellulitis, present on admission Lactic acid is 1.5. Blood cultures growing strep not strep pneumo bacteremia Patient still having low-grade fevers, erythema of the lower extremity slightly improved On IV Unasyn, will switch to IV ceftriaxone 2 g daily We will get 2D echo, ID consult Repeat labs in a.m. 2. Hypoxia, likely related to #1, noted in the ED, Resolved Admitting chest x-ray was unremarkable. COVID-19 test was negative 3. Chronic venous insufficiency left lower extremity, history of recurrent cellulitis(3rd episode) May need long-term suppressive treatment with antibiotics; ID consulted Patient will need to follow-up with vascular surgery 4. DVT prophylaxis with Lovenox subcu Inpatient E&M: 91310 Subs Hosp L2
--- NOTE | 2019-10-21 10:45 | CASEMGMT ---
Addendum entered by Makayla Alfaro 10/21/19 16:00: Living arrangements update: One son also lives w/pt and his . Addendum entered by Makayla Alfaro 10/21/19 15:58: Reviewed [facility] transfer option. Pt states he does not wish to transfer to [facility]. He wishes to stay @ [facility] and have hospitalization billed through [employer]. Declination to transfer form signed by pt, copy placed on chart, and original returned to pt. Form faxed to [facility] transfer center at this time along w/ H/P and clinical info. Original Note: RN CM MINESWEEPING OFFICER CM to room to meet with patient for initial transition planning/care coordination assessment. RN CM introduced self and role at [facility]. Pt voices understanding and consents to assessment at this time. Pt resting in bed in no distress at this time. Pt is A/O at this time and answers all questions appropriately. Care providers, pharmacy, and demographics verified/updated at this time. PCP: [facility]. [employer], Viktoria Pedersen. has an upcoming appt on 10/26 @ 3 PM. This was added to D/C appt list. Specialists: none Preferred Pharmacy: [facility] for short-term meds. [facility] for all other meds Insurance: [employer] [place] benefits Prescription Benefit: [facility] Living Will/HPOA: has a LW. Copy not found on file @ [facility] and pt made aware. Pt states he does not have a Healthcare POA. Pt given info on Adv directives and made aware SW can assist with completing paperwork if he chooses to do so. Pt declines at this time. Pt also given Olericulture Teacher rac card and made aware can make an appt and complete this as an out-pt as well. LNOK: Annabelle Living Arrangements: Lives w/his in a 2-story home. Independent. Works full-time. 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 Transportation: Pt states drives self and states no transportation concerns at this time. will take him home @ d/c. DME: Denies using any DME and denies needs. HHC/SNF: No history of either. No needs identified. Pt wishes to return home and states has no concerns with going home at time of discharge. CM to follow for any discharge planning/needs. Pt voices no concerns/needs at this time. Advised pt to ask for CM if any questions/concerns/needs arise. Voices understanding. PLAN: Home Sulema JENKINS RN CM
--- NOTE | 2019-10-21 14:18 | CASEMGMT ---
Social Work Note Per regional climate change analyst questions, pt has completed LW only and provided copies to [facility]. SW reviewed previous visits, pt was at [facility] in August 2019 and pt stated he had completed HCPOA and LW and RN CM updated pt that copies were not on file at [facility]. Shirley Richardson HIGH SPEED PRINTER OPERATOR, APPRAISAL MANAGER
[2019-10-21 14:28] VITALS: BP 138/82; PULSE 81; RESP 16; TEMP 37.3; O2SAT 94
[2019-10-21 22:16] VITALS: BP 143/76; PULSE 83; RESP 18; TEMP 37.6; O2SAT 98
[2019-10-22 05:15] VITALS: BP 144/77; PULSE 73; RESP 16; TEMP 37.2; O2SAT 97
[2019-10-22 07:31] VITALS: BP 142/78; PULSE 66; RESP 16; TEMP 37.2; O2SAT 99
[2019-10-22 08:32] LABS: Basophil# 0.02 X10^3/uL; Basophil% 0.2 % (0-1); Eosinophil# 0.04 X10^3/uL; Eosinophils% 0.3 % (0-5); Hematocrit 34.2 % (40-54); Hemoglobin 11.7 g/dL (13.0-16.5); Lymphocyte % 9.1 % (19-41); Mean Corp Hgb Conc 34.2 g/dL (32-36); Mean Corpuscular Hgb 29.4 pg (27.0-32.0); Mean Corpuscular Volume 85.9 fL (80-94); Mean Platelet Vol. 10.2 fl (6.2-12.0); Monocyte# 0.72 X10^3/uL; Monocyte% 5.5 % (0-10); NRBC Flagged by Analyzer 0 % (0-5); Neutrophil % 83.5 % (47-70); Platelet Count 139 K/mm3 (150-450); RBC Distribution Width SD 40.3 fl (35.1-43.9); Red Blood Count 3.98 M/mm3 (4.6-6.2); White Blood Count 13.2 K/mm3 (4.4-11.0)
[2019-10-22] MEDS: Enoxaparin 40 MG/0.4 ML Syringe SC (10:23)
--- NOTE | 2019-10-22 10:42 | PN_ITS ---
Reason for Visit: Follow-up on left lower leg cellulitis. Subjective: Patient was seen and examined. He feels overall improved. There has been extension of the erythema off his left leg into the thigh. Original area of erythema and differential warmth appears improved. No other events overnight. Objective: Physical exam: General: Alert, Oriented x3, Cooperative, No apparent distress HEENT: Atraumatic, PERRLA, EOMI, Normocephalic Oral: Moist Mucosa Neck: Supple Lungs: Clear to auscultation, Normal air movement Cardiovascular: Regular rate, Regular Rhythm, Normal S1, Normal S2, No murmurs Abdomen: Bowel Sounds Present, Soft, Non Tender, Non-Distended, No Hepato- splenomegaly Extremities: Edema - bilateral leg edema +1 Skin: - - erythema of left leg, not worsening beyond marked areas Musculoskeletal: No Tenderness to Palpation of Joints or Extremities Lymphatic: No Cervical, Supraclavicular, or Inguinal Adenopathy Neurological: Cranial nerves II-XII grossly intact, Neuro grossly intact Psych/Mental Status: Normal Affect, Appropriate Vitals/I&O's: Vital Signs Temp Pulse Resp BP Pulse Ox 98.9 F 66 16 142/78 H 99 10/22/19 07:31 10/22/19 07:31 10/22/19 07:31 10/22/19 07:31 10/22/19 07:31 Oxygen Flow Rate (L/min) 2 Oxygen Delivery Method Room Air Weight: 116.3 kg Body Mass Index (BMI) 31.6 Intake and Output for Last 24 Hours 10/20/19 10/21/19 10/22/19 23:59 23:59 23:59 Intake Total 4119 / 4119 3597.33 / 3597.33 1768.75 / 1768.75 Balance 4119 / 4119 3597.33 / 3597.33 1768.75 / 1768.75 Microbiology Past 72 Hours 10/20/19 07:05 Urine, Clean Catch Urine Culture - Final Culture exhibits no growth. 10/20/19 06:55 Blood Culture (Wb) - Anticubital Right Bacteria Detection (PCR) - Final Strep not Strep pneumo 10/20/19 06:55 Blood Culture (Wb) - Anticubital Right Blood Culture - Preliminary 10/20/19 08:00 Blood Culture (Wb) - Anticubital Right Blood Culture - Preliminary Laboratory Results 10/22/19 08:14: WBC 13.2 H, RBC 3.98 L, Hgb 11.7 L, Hct 34.2 L, MCV 85.9, MCH 29.4, MCHC 34.2, RDW Std Deviation 40.3, RDW Coeff of Siri 13.0, Plt Count 139 L, MPV 10.2, Immature Gran % (Auto) 1.400 H, Neut % (Auto) 83.5 H, Lymph % (Auto) 9.1 L, [place] % (Auto) 5.5, Eos % (Auto) 0.3, Baso % (Auto) 0.2, Absolute Neuts (auto) 11.0 H, Absolute Lymphs (auto) 1.20, Nucleated RBC % 0 Current Medications Acetaminophen (Tylenol) 650 mg PO Q6H PRN PRN PRN Reason: Pain Score 1-10/Temp > 100.7 F Last Admin: 10/21/19 14:30 Dose: 650 mg Documented by: Al Hydroxide/Mg Hydroxide (Mylanta Ii) 30 ml PO Q6H PRN PRN PRN Reason: Gastric Burning Enoxaparin Sodium (Lovenox) 40 mg SC DAILY [facility] Last Admin: 10/22/19 10:23 Dose: 40 mg Documented by: Sodium Chloride () 1,000 mls @ 75 mls/hr IV .[id number] [facility] Last Infusion: 10/22/19 10:24 Dose: 0 mls/hr Documented by: Ceftriaxone Sodium 2 gm/ (Sodium Chloride) 50 mls @ 100 mls/hr IV Q24 [facility] Last Admin: 10/22/19 10:23 Dose: 100 mls/hr Documented by: Ondansetron HCl (Zofran) 4 mg IV Q8H PRN PRN PRN Reason: NAUSEA/VOMITING Sodium Chloride () 10 - 40 ml IV UD PRN PRN Reason: SALINE FLUSH STROKE Vital Signs/Narrative: Vital Signs Temp Pulse Resp BP Pulse Ox 10/22/19 07:31 98.9 F 66 16 142/78 H 99 Medical Necessity - Tobacco Use Smoking Status: Never smoker Tobacco Use: Non-smoker Assessment/Plan All Active Problems Cellulitis of left lower leg (Acute) Sepsis (Acute) redness of left leg (Acute) 1. Sepsis/ strep bacteremia secondary to acute left lower leg cellulitis, present on admission Slight gradual extension of cellulitis, clinically stable Lactic acid was 1.5. Blood cultures growing strep not strep pneumo Original lower leg erythema appears improved, new area of erythema to thigh We will continue on IV ceftriaxone 2 g daily ED echo shows EF of 55%, no valvular abnormality ID following, repeat blood work in a.m. 2. Hypoxia, likely related to #1, noted in the ED, Resolved Admitting chest x-ray was unremarkable. COVID-19 test was negative 3. Chronic venous insufficiency left lower extremity, history of recurrent cellulitis(3rd episode) May need long-term suppressive treatment with antibiotics; ID following Patient will need to follow-up with vascular surgery 4. DVT prophylaxis with Lovenox subcu Inpatient E&M: 76547 Subs Hosp L2
[2019-10-22] MEDS: 0.9% Normal Saline 1,000 ML 75 ML IV ×2 (11:32→23:55)
[2019-10-22 11:35] VITALS: BP 133/88; PULSE 62; RESP 16; TEMP 37.3; O2SAT 99
[2019-10-22 13:57] VITALS: BP 149/92; PULSE 61; RESP 16; TEMP 37.3; O2SAT 98
--- NOTE | 2019-10-22 15:30 | PCM.HP.ID ---
Problem List (1) Cellulitis of left lower leg Status: Acute Reason for Consult: cellulitis Consulted by: Dr. Martinez History of Present Illness: The patient is a 49 year old M with chronic edema, recurrent cellulitis for 7-10 years, multiple hospital stays already this year, presented 10/19 with sudden onset L ankle pain, redness, swelling, quickly spreading up to thigh, associated with nausea, fever, chills. No inciting events. Rides his bike 250 miles a week. Was camping the prior weekend, no bug bites. No trauma. Taken to ED, admitted with vanc/unasyn, changed to ceftriaxone. Fever better, still some redness going up thigh, overall redness better. Mild pain. Full ROS performed and neg except as noted above. - Medical History Past Medical History (Chronic Problems): Chronic Problems Venous stasis of lower extremity (Chronic) Allergies/Adverse Reactions: Allergies No Known Allergies Allergy (Verified 10/20/19 06:56) Home Medications: Ambulatory Orders Medication Instructions Recorded NK 10/20/19 - Social History Tobacco Use: non-smoker Vital Signs Temp Pulse Resp BP Pulse Ox 99.1 F 61 16 149/92 H 98 10/22/19 13:57 10/22/19 13:57 10/22/19 13:57 10/22/19 13:57 10/22/19 13:57 Oxygen Flow Rate (L/min) 2 Oxygen Delivery Method Room Air Weight: 116.3 kg Body Mass Index (BMI) 31.6 Microbiology Past 72 Hours 10/20/19 07:05 Urine Culture - Final Urine, Clean Catch Culture exhibits no growth. 10/20/19 06:55 Bacteria Detection (PCR) - Final Blood Culture (Wb) - Anticubital Right Strep not Strep pneumo Blood Culture - Preliminary 10/20/19 08:00 Blood Culture - Preliminary Blood Culture (Wb) - Anticubital Right Laboratory Tests Past 24 Hrs 10/22/19 08:14 WBC 13.2 H RBC 3.98 L Hgb 11.7 L Hct 34.2 L MCV 85.9 MCH 29.4 MCHC 34.2 RDW Std Deviation 40.3 RDW Coeff of Siri 13.0 Plt Count 139 L MPV 10.2 Immature Gran % (Auto) 1.400 H Neut % (Auto) 83.5 H Lymph % (Auto) 9.1 L [place] % (Auto) 5.5 Eos % (Auto) 0.3 Baso % (Auto) 0.2 Absolute Neuts (auto) 11.0 H Absolute Lymphs (auto) 1.20 Nucleated RBC % 0 - Other Studies Radiology: [] reviewed Other Studies: [] Route of nutrition/ use of supplements: [] Nutritional Intake: [] IV Site: [] Acosta Catheter: [] - Physical Exam General: Alert, Oriented x3, Cooperative, No apparent distress HEENT: Atraumatic, PERRLA, EOMI Neck: Supple, No Nodes Lungs: Clear to auscultation, Normal air movement Cardiovascular: Regular rate, Regular Rhythm Abdomen: Soft, Non Tender, Non-Distended Extremities: Edema Skin: - - LLE redness, swelling. IV Site: Peripheral, without redness Musculoskeletal: No Tenderness to Palpation of Joints or Extremities Neurological: Cranial nerves II-XII grossly intact - Assessment/Plan Antibiotics: [] Assessment/Plan: [] sepsis due to recurrent LLE cellulitis, chronic edema. Overall improved. No purulence. Will narrow to cefazolin. 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 Will follow, thank you
[2019-10-22 19:36] VITALS: BP 129/79; PULSE 70; RESP 16; TEMP 37; O2SAT 99
[2019-10-22] MEDS: Cefazolin 2 GM in 0.9% Normal Saline 100 ML IV (21:27)
[2019-10-23 01:50] VITALS: BP 132/79; PULSE 66; RESP 16; TEMP 36.9; O2SAT 96
[2019-10-23] MEDS: Cefazolin 2 GM in 0.9% Normal Saline 100 ML IV (05:08)
[2019-10-23 06:04] LABS: Absolute Lymphocyte Count 1.47 X10^3/uL (0.83-4.51); Absolute Neutrophil Count 5.2 X10^3/uL (2.0-7.7); Basophil# 0.03 X10^3/uL; Basophil% 0.4 % (0-1); Eosinophil# 0.12 X10^3/uL; Eosinophils% 1.6 % (0-5); Hematocrit 32.4 % (40-54); Hemoglobin 11.1 g/dL (13.0-16.5); Lymphocyte # 1.47 X10^3/ul (4.0); Lymphocyte % 19.9 % (19-41); Mean Corp Hgb Conc 34.3 g/dL (32-36); Mean Corpuscular Hgb 29.2 pg (27.0-32.0); Mean Corpuscular Volume 85.3 fL (80-94); Monocyte# 0.55 X10^3/uL; Monocyte% 7.4 % (0-10); NRBC Flagged by Analyzer 0 % (0-5); Neutrophil # 5.19 X10^3/uL (2.7-7.7); Neutrophil % 70.2 % (47-70); Platelet Count 146 K/mm3 (150-450); RBC Distribution Width CV 12.9 % (11.6-14.6); RBC Distribution Width SD 39.5 fl (35.1-43.9); White Blood Count 7.4 K/mm3 (4.4-11.0)
[2019-10-23 06:33] LABS: ALB/GLOB Ratio 0.7 RATIO (0.9-2.4); AST(SGOT) 17 U/L (15-37); Alanine Aminotransfer ALT/SGPT 33 U/L (16-61); Albumin, Serum 2.5 g/dL (3.2-5.0); Alkaline Phosphatase 64 U/L (45-117); Anion Gap 3 (5-15); BUN 10 mg/dL (7-18); Calcium,Total 7.9 mg/dL (8.5-10.1); Chloride 108 mmol/L (98-107); EST Glomerular Filtration Rate 84 mL/min (>60); Est Glom Filt Rate - Afr Amer 101 mL/min (>60); Estimated Creatinine Clearance 104.45 ml/min; Globulin 3.8 g/dL (2.2-4.2); Glucose 95 mg/dL (74-106); Potassium 3.2 mmol/L (3.5-5.1); Protein, Total 6.3 g/dL (6.4-8.2); Sodium Level 139 mmol/L (136-145)
[2019-10-23 07:27] VITALS: BP 143/89; PULSE 59; RESP 16; TEMP 37.1; O2SAT 99
[2019-10-23] MEDS: Enoxaparin 40 MG/0.4 ML Syringe SC (08:39)
--- NOTE | 2019-10-23 10:25 | PCM.PN.ID ---
Subjective: Feeling better, no n/v/d. Leg less red/sore/swollen. No fever. - Physical Exam Vitals/I&O's: Vital Signs Temp Pulse Resp BP Pulse Ox 98.7 F 59 L 16 143/89 H 99 10/23/19 07:27 10/23/19 07:27 10/23/19 07:27 10/23/19 07:27 10/23/19 07:27 Oxygen Flow Rate (L/min) 2 Oxygen Delivery Method Room Air Weight: 117.8 kg Body Mass Index (BMI) 31.6 Intake and Output for Last 24 Hours 10/21/19 10/22/19 10/23/19 23:59 23:59 23:59 Intake Total 3597.33 / 3597.33 4143.75 / 4143.75 501.25 / 501.25 Balance 3597.33 / 3597.33 4143.75 / 4143.75 501.25 / 501.25 General: Alert, Cooperative, No apparent distress Lungs: Clear to auscultation, Normal air movement Cardiovascular: Regular rate, Regular Rhythm Abdomen: Soft, Non Tender, Non-Distended Skin: Rash Present - LLE much less red/warm, still some swelling Microbiology Past 72 Hours 10/20/19 07:05 Urine, Clean Catch Urine Culture - Final Culture exhibits no growth. 10/20/19 06:55 Blood Culture (Wb) - Anticubital Right Bacteria Detection (PCR) - Final Strep not Strep pneumo 10/20/19 06:55 Blood Culture (Wb) - Anticubital Right Blood Culture - Preliminary 10/20/19 08:00 Blood Culture (Wb) - Anticubital Right Blood Culture - Preliminary Laboratory Results 10/23/19 05:35: WBC 7.4, RBC 3.80 L, Hgb 11.1 L, Hct 32.4 L, MCV 85.3, MCH 29.2, MCHC 34.3, RDW Std Deviation 39.5, RDW Coeff of Siri 12.9, Plt Count 146 L, MPV 10.0, Immature Gran % (Auto) 0.500, Neut % (Auto) 70.2 H, Lymph % (Auto) 19.9, [place] % (Auto) 7.4, Eos % (Auto) 1.6, Baso % (Auto) 0.4, Absolute Neuts (auto) 5.2, Absolute Lymphs (auto) 1.47, Nucleated RBC % 0 10/23/19 05:35: Sodium 139, Potassium 3.2 L, Chloride 108 H, Carbon Dioxide 28.0, Anion Gap 3 L, BUN 10, Creatinine 1.00, Estim Creat Clear Calc 104.45, Est GFR (MDRD) Af Amer 101, Est GFR (MDRD) Non-Af 84, BUN/Creatinine Ratio 10.0, Glucose 95, Calcium 7.9 L, Total Bilirubin 0.40, AST 17, ALT 33, Alkaline Phosphatase 64, Total Protein 6.3 L, Albumin 2.5 L, Globulin 3.8, Albumin/Globulin Ratio 0.7 L Current Medications Acetaminophen (Tylenol) 650 mg PO Q6H PRN PRN PRN Reason: Pain Score 1-10/Temp > 100.7 F Last Admin: 10/21/19 14:30 Dose: 650 mg Documented by: Al Hydroxide/Mg Hydroxide (Mylanta Ii) 30 ml PO Q6H PRN PRN PRN Reason: Gastric Burning Enoxaparin Sodium (Lovenox) 40 mg SC DAILY [facility] Last Admin: 10/23/19 08:39 Dose: 40 mg Documented by: Sodium Chloride () 1,000 mls @ 75 mls/hr IV .[id number] [facility] Last Infusion: 10/23/19 05:52 Dose: 75 mls/hr Documented by: Cefazolin Sodium 2 gm/ Sodium (Chloride) 110 mls @ 150 mls/hr IV Q8 [facility] Last Infusion: 10/23/19 05:52 Dose: Infused Documented by: Ondansetron HCl (Zofran) 4 mg IV Q8H PRN PRN PRN Reason: NAUSEA/VOMITING Sodium Chloride () 10 - 40 ml IV UD PRN PRN Reason: SALINE FLUSH Medical Necessity - Tobacco Use Smoking Status: Never smoker Tobacco Use: Non-smoker Route of nutrition/ use of supplements: [] Nutritional Intake: [] IV Site: [] Acosta Catheter: [] - Assessment/Plan Antibiotics: [] Assessment/Plan: [] sepsis with strep bacteremia per pcr due to recurrent LLE cellulitis, chronic edema. Overall improved. No purulence. On cefazolin. Given that it has been 7-10 years of these episodes, may benefit from longterm low abx for suppression. Ok for d/c home on 10 days of amoxicillin, then will go down to once daily retirement. ID followup in 2 weeks. Will follow
[2019-10-23] MEDS: Furosemide 40 MG/4 ML Vial IV (10:50)
[2019-10-23] MEDS: 0.9% Saline Lock 10 ML Syringe IV (10:51)
--- NOTE | 2019-10-23 10:53 | NURSING ---
acewrap applied to left leg
--- NOTE | 2019-10-23 11:46 | PCM.DC ---
- Discharge Diagnoses Reason(s) for Visit for Discharge Instructions: Left leg swelling You will use the following diet at home:: Regular Your food should be the consistency of: Regular Your liquids should be the consistency of: Regular/Thin Discharge Activity: Return to Normal Activity Additional Instructions: Continue on your antibiotics. Use the Bony wraps on your left leg- 12 hours on, 12 hours off. Follow-up with infectious disease in 2 weeks. See your primary care doctor in 1-2 weeks. Allergies/Adverse Reactions: Allergies No Known Allergies Allergy (Verified 10/20/19 06:56) Medications to take at Discharge Acetaminophen [Tylenol Tablet] 650 mg PO Q6H PRN PRN tablet 10/23/19 Amoxicillin 875 mg PO BID 30 Days #40 tab 10/23/19 The following prescriptions were given: Amoxicillin 875 mg PO BID 30 Days #40 tab Transmission Status: Received by [facility] Primary Care Physician: [facility],[place] [Primary Care Provider] - Please follow up with your Primary Care Physician in: within 1-2 weeks Test Results: Test results from this visit will be discussed in further detail at your follow-up appointment, if applicable. Please Follow Up With: Kemal Mullins MD When: in 2 weeks Proposed Discharge Date: 10/23/19
--- NOTE | 2019-10-23 11:49 | PCM.DC.SUM ---
Discharge Date and Diagnosis Date of Admission: 10/20/19 Date of Discharge: 10/23/19 - Primary Discharge Diagnosis Acute Problems: Sepsis secondary to left lower extremity leg cellulitis Streptococcus not Streptococcus pneumoniae bacteremia - Secondary Discharge Diagnosis Chronic Problems: Chronic Problems Venous stasis of lower extremity (Chronic) Hospital Course and Treatment Imaging Results: Clinical Impression(s) from Imaging Studies Chest X-Ray 10/20/19 07:01 IMPRESSION: Normal x-ray examination of the chest. Electronically Signed: Theodore Doan MD at 7:41 EDT , Service support , Infectious disease Operations: None Procedures: 2-D Echocardiogram Summary of Care Provided: The patient is a 49 year old M with past medical history of recurrent lower extremity cellulitis, this is his third admission for lower extremity cellulitis. Patient last had cellulitis 2 months ago and was treated with Keflex with improvement. He bikes a lot frequently and denies any trauma or cuts to his lower extremity. He recently went camping but denies any insect bites. He came in with a one-day history of left lower extremity swelling and erythema as well as differential warmth and fever and chills. In the ED his temperature was 100.3F, heart rate was 104, WBC count 11.5. His lower extremity showed cellulitis with differential warmth in his extremity from knee downwards. Patient was admitted to the [facility] floor and started on IV antibiotics. Initially he was on IV vancomycin and Unasyn in the ED. IV vancomycin was discontinued on admission. He was continued on IV Unasyn. Later on in the first day of admission, patient blood cultures came back positive for Streptococcus but no strep pneumo. He was switched to IV ceftriaxone. His lower extremity cellulitis initially improved and later on got worse with extension to the anterior aspect of his thigh. Infectious disease was consulted. Switched antibiotics to IV cefazolin. Patient continued to improve. He received 1 dose of Lasix at discharge to help with the lower extremity edema. He will be on 10 days of amoxicillin and then will be kept on amoxicillin once a day for a long time. He will follow-up with ID in 2 weeks. He knows to follow-up with his primary care doctor and also vascular surgery in the [place] system. He was advised to Bony wrap his legs 12 hours on, 12 hours of Subjective: On the day of discharge, patient was seen and examined. Complains of some chills. No fevers seen 24 hours prior to this discharge. Denied any nausea or vomiting or diarrhea. Objective: Physical exam: General: Alert, Oriented x3, Cooperative, No apparent distress HEENT: Atraumatic, PERRLA, EOMI, Normocephalic Oral: Moist Mucosa Neck: Supple Lungs: Clear to auscultation, Normal air movement Cardiovascular: Regular rate, Regular Rhythm, Normal S1, Normal S2, No murmurs Abdomen: Bowel Sounds Present, Soft, Non Tender, Non-Distended, No Hepato-splenomegaly Extremities: Edema - bilateral leg edema +1 Skin: - - erythema of left leg, not worsening beyond marked areas Musculoskeletal: No Tenderness to Palpation of Joints or Extremities Lymphatic: No Cervical, Supraclavicular, or Inguinal Adenopathy Neurological: Cranial nerves II-XII grossly intact, Neuro grossly intact Psych/Mental Status: Normal Affect, Appropriate - Physical Exam Vitals/I&O's: Vital Signs Temp Pulse Resp BP Pulse Ox 98.7 F 59 L 16 143/89 H 99 10/23/19 07:27 10/23/19 07:27 10/23/19 07:27 10/23/19 07:27 10/23/19 07:27 Oxygen Flow Rate (L/min) 2 Oxygen Delivery Method Room Air Weight: 117.8 kg Body Mass Index (BMI) 31.6 Intake and Output for Last 24 Hours 10/21/19 10/22/19 10/23/19 23:59 23:59 23:59 Intake Total 3597.33 / 3597.33 4143.75 / 4143.75 875.00 / 875.00 Balance 3597.33 / 3597.33 4143.75 / 4143.75 875.00 / 875.00 Microbiology Past 72 Hours 10/20/19 07:05 Urine, Clean Catch Urine Culture - Final Culture exhibits no growth. 10/20/19 06:55 Blood Culture (Wb) - Anticubital Right Bacteria Detection (PCR) - Final Strep not Strep pneumo 10/20/19 06:55 Blood Culture (Wb) - Anticubital Right Blood Culture - Preliminary 10/20/19 08:00 Blood Culture (Wb) - Anticubital Right Blood Culture - Preliminary Laboratory Results 10/23/19 05:35: WBC 7.4, RBC 3.80 L, Hgb 11.1 L, Hct 32.4 L, MCV 85.3, MCH 29.2, MCHC 34.3, RDW Std Deviation 39.5, RDW Coeff of Siri 12.9, Plt Count 146 L, MPV 10.0, Immature Gran % (Auto) 0.500, Neut % (Auto) 70.2 H, Lymph % (Auto) 19.9, Clare % (Auto) 7.4, Eos % (Auto) 1.6, Baso % (Auto) 0.4, Absolute Neuts (auto) 5.2, Absolute Lymphs (auto) 1.47, Nucleated RBC % 0 10/23/19 05:35: Sodium 139, Potassium 3.2 L, Chloride 108 H, Carbon Dioxide 28.0, Anion Gap 3 L, BUN 10, Creatinine 1.00, Estim Creat Clear Calc 104.45, Est GFR (MDRD) Af Amer 101, Est GFR (MDRD) Non-Af 84, BUN/Creatinine Ratio 10.0, Glucose 95, Calcium 7.9 L, Total Bilirubin 0.40, AST 17, ALT 33, Alkaline Phosphatase 64, Total Protein 6.3 L, Albumin 2.5 L, Globulin 3.8, Albumin/Globulin Ratio 0.7 L Current Medications Acetaminophen (Tylenol) 650 mg PO Q6H PRN PRN PRN Reason: Pain Score 1-10/Temp > 100.7 F Last Admin: 10/21/19 14:30 Dose: 650 mg Documented by: Al Hydroxide/Mg Hydroxide (Mylanta Ii) 30 ml PO Q6H PRN PRN PRN Reason: Gastric Burning Enoxaparin Sodium (Lovenox) 40 mg SC DAILY [facility] Last Admin: 10/23/19 08:39 Dose: 40 mg Documented by: Cefazolin Sodium 2 gm/ Sodium (Chloride) 110 mls @ 150 mls/hr IV Q8 [facility] Last Infusion: 10/23/19 05:52 Dose: Infused Documented by: Ondansetron HCl (Zofran) 4 mg IV Q8H PRN PRN PRN Reason: NAUSEA/VOMITING Sodium Chloride () 10 - 40 ml IV UD PRN PRN Reason: SALINE FLUSH Last Admin: 10/23/19 10:51 Dose: 10 ml Documented by: Discharge Diet: No Restrictions Discharge Activity: Return to Normal Activity Home Medications: Medications to take at Discharge Acetaminophen [Tylenol Tablet] 650 mg PO Q6H PRN PRN tab 10/23/19 Amoxicillin 875 mg PO BID 30 Days #40 tab 10/23/19 Following Prescrptions Were Given to Patient: Amoxicillin 875 mg PO BID 30 Days #40 tab Transmission Status: Received by [employer] [facility] Primary Care Physician: [facility] [Primary Care Provider] - Please follow up with your Primary Care Physician in: within 1-2 weeks Please Follow Up With: Kemal Mullins MD When: in 2 weeks Disposition: Home Minutes spent on discharge:: 35 Patient Condition:: Stable Medical Necessity - Tobacco Use Smoking Status: Never smoker Tobacco Use: Non-smoker Meaningful Use Info Meaningful Use Diagnoses (Choose all that apply): None applicable Inpatient E&M: 15381 Disch Hosp
[2019-10-23 11:52] VITALS: BP 115/73; PULSE 56; RESP 16; TEMP 37.3; O2SAT 98
[2019-10-23 11:53] VITALS: BP 115/73; BP 131/90; BP 143/92; PULSE 58; PULSE 60; PULSE 64
== END 2019-10-23 12:14 | disposition home or self-care (01) | DRG 872 ==
LOC: ED 10:06 → MS3 11:00
PROVIDERS: Admitting Provider Internal Medicine; Emergency Provider Emergency Medicine; Visit Provider Internal Medicine
DX: A40.9 Streptococcal sepsis, unspecified (principal); L03.116 Cellulitis of left lower limb; I87.8 Other specified disorders of veins; I87.2 Venous insufficiency (chronic) (peripheral); Z83.3 Family history of diabetes mellitus
CPT/HCPCS: 36415; 71045; 80053; 81001; 83605; 85025; 85610; 85730; 87040; 87077; 87086; 87149; 87186; 87635; 93306; 93971; 99251; 99285; G2023; J7030; J7040; Q9957; A4216; G0463; J0295; J0696; J1940; J2405; U0003

== ENCOUNTER 2020-07-14 09:30 | Outpatient (RCR) | payer BC, SELFPAY ==
[2019-10-20 12:16] VITALS: BMI 31.6
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
--- NOTE | 2020-07-14 10:06 | OTREVAL_ITS ---
SALVADOR LIPSCOMB, It has been my pleasure to treat JACE HARTMAN over the last 9 visits for right radial head fx. Please see the progress note below for an update on the occupational therapy plan of care! Subjective: pt 15 min late to session pt arrives to session-s/p 11 weeks and 5 days- pt states he is only working with his elbow not offten (maybe once a day) pt admits he does need to do his exercises (PROM/AROM and t-band) more if he wants it to get better. Objective/Function: prior to treatment -30/120. following session therapist able to get pt to -20/135. right director of personnel 50# left 110*. pt has HEP of PROM /AAROM and prolonged stretch- along with t-band for PRE Plan Plan: pt to return to dr. will see if Dr wants pt to cont. with PRE Goals - Goals Patient Goals: Regain Mobility, Decrease Swelling/Stiffness, Use Hand/Wrist/Arm Normally Again Goal:: pt will demo a director of personnel strength of 50# at D/C to increase pt ind. with ADls and IADLs Goal:: pt will demo right elbow flex to 140 ext to 0 to increase pts ind. with ADLs and IADLs by d/c. pt will demo right forearm supination to 75 pronation to 75 Goal:: pt will report no pain greater than 1/10 with use of right UE with ADLS and IADLs by dc Goal:: pt will demo a reduction in edema by right elbow measuring at 31cm or less by d/c Goal:: pt will demo understanding of scar mtg by end of 4th session to limit risk of scar adhesions Goal:: pt will demo ind donning/dogging by end of 1st session. pt will demo understanding of skin care and signs of infection by end of 2nd session Anticipated Interventions Anticipated Interventions: A/AAROM/PROM, Strengthening, Edema Control, Scar Care, Triggerpoint Release, Desensitization, Modalities, Orthoses, Ergonomic Education Please do not hesitate to contact me at [phone] by phone or if you have questions or concerns regarding this new plan of care! Sincerely, Pily Robb, OTR/L, CHT
--- NOTE | 2020-10-05 07:53 | HP.OTDCSUM ---
It has been my pleasure to treat JACE HARTMAN under orders from SALVADOR LIPSCOMB, for the diagnosis of right radial head fx for a total of 9 visit(s). Please see the following information for a summary of their discharge status. % Improvement: 90 Objective/Function: prior to treatment -30/120. following session therapist able to get pt to -20/135. right computer network support specialist 50# left 110*. pt has HEP of PROM /AAROM and prolonged stretch- along with t-band for PRE Patient Goals: Regain Mobility, Decrease Swelling/Stiffness, Use Hand/Wrist/Arm Normally Again Goal:: pt will demo a computer network support specialist strength of 50# at D/C to increase pt ind. with ADls and IADLs Goal:: pt will demo right elbow flex to 140 ext to 0 to increase pts ind. with ADLs and IADLs by d/c. pt will demo right forearm supination to 75 pronation to 75 Goal:: pt will report no pain greater than 1/10 with use of right UE with ADLS and IADLs by dc Goal:: pt will demo a reduction in edema by right elbow measuring at 31cm or less by d/c Goal:: pt will demo understanding of scar mtg by end of 4th session to limit risk of scar adhesions Goal:: pt will demo ind donning/dogging by end of 1st session. pt will demo understanding of skin care and signs of infection by end of 2nd session Plan: pt to return to dr. will see if Dr wants pt to cont. with PRE If there are questions or concerns regarding this patient's occupational therapy, please fell free to call me at [phone]. Thank you for the referral of this patient. Sincerely, Pily Robb, OTR/L, CHT
== END 2020-07-14 19:00 | disposition home or self-care (01) ==
LOC: OT 09:30
DX: S52.121D Displaced fracture of head of right radius, subsequent encounter for closed fracture with routine healing (principal); M25.621 Stiffness of right elbow, not elsewhere classified
CPT/HCPCS: 97110; 97140; 97166

== ENCOUNTER 2020-10-13 00:56 | Inpatient (IN) | payer OTHER, BC, SELFPAY ==
[2019-10-20 12:16] VITALS: BMI 31.6
[2020-10-13] VITALS (13 sets, daily range): BP systolic 106–170; BP diastolic 52–103; PULSE 63–99; RESP 14–20; TEMP 36.6–38.3; O2SAT 94–100; BMI 32.6; BMI 32.8
--- NOTE | 2020-10-13 01:22 | RAD_ITS ---
STUDY: X-RAY CHEST REASON FOR EXAM: Male, 50 years old. fever TECHNIQUE: Single AP portable view of the chest. COMPARISON: 10/20/2019. FINDINGS: The lungs are underexpanded with mild right midlung atelectasis, otherwise clear. There is no demonstrated pleural abnormality. Normal size heart. Normal mediastinum and keshawn. Normal visualized pulmonary arteries. Normal visualized aortic arch and descending thoracic aorta. There are diffuse degenerative changes of the visualized thoracic spine. Normal visualized ribs, clavicles, and shoulders. There is no demonstrated abnormality of the visualized soft tissue structures of the upper abdomen. RAD/Chest 1 View (Portable) IMPRESSION: Mild right midlung atelectasis otherwise no acute cardiopulmonary disease. Electronically Signed: Jovita Haro MD at 2:16 EDT , Service support ,
[2020-10-13 01:31] LABS: Absolute Lymphocyte Count 0.58 X10^3/uL (0.83-4.51); Absolute Neutrophil Count 14.1 X10^3/uL (2.0-7.7); Basophil# 0.04 X10^3/uL; Basophil% 0.3 % (0-1); Eosinophil# 0.02 X10^3/uL; Eosinophils% 0.1 % (0-5); Hematocrit 40.4 % (40-54); Hemoglobin 13.9 g/dL (13.0-16.5); Lymphocyte # 0.58 X10^3/ul (0.83-4.51); Lymphocyte % 3.7 % (19-41); Mean Corp Hgb Conc 34.4 g/dL (32-36); Mean Corpuscular Volume 87.1 fL (80-94); Monocyte# 0.63 X10^3/uL; Monocyte% 4.1 % (0-10); NRBC Flagged by Analyzer 0 % (0-5); Neutrophil # 14.11 X10^3/uL (2.7-7.7); Neutrophil % 91.2 % (47-70); POSITIVE DIFFERENTIAL YES; Platelet Count 177 K/mm3 (150-450); RBC Distribution Width CV 12.3 % (11.6-14.6); RBC Distribution Width SD 38.8 fl (35.1-43.9); Red Blood Count 4.64 M/mm3 (4.6-6.2); White Blood Count 15.5 K/mm3 (4.4-11.0)
[2020-10-13 01:39] LABS: Differential Indicated SCAN CRITERIA MET
[2020-10-13] MEDS: Acetaminophen 500 MG Tablet 1000 MG PO (01:39)
[2020-10-13] MEDS: 0.9% Normal Saline 1,000 ML 1000 ML IV (01:39)
[2020-10-13 01:46] LABS: Anion Gap 3 (5-15); BUN 23 mg/dL (7-18); BUN/Creat Ratio 18.1 RATIO (10-20); Chloride 107 mmol/L (98-107); Creatinine, Serum 1.27 mg/dL (0.70-1.30); EST Glomerular Filtration Rate 63 mL/min (>60); Est Glom Filt Rate - Afr Amer 77 mL/min (>60); Estimated Creatinine Clearance 81.32 ml/min; Glucose 115 mg/dL (74-106); Potassium 4.1 mmol/L (3.5-5.1); Sodium Level 138 mmol/L (136-145)
[2020-10-13 01:49] LABS: Lactic Acid 0.9 mmol/L (0.4-1.9)
--- NOTE | 2020-10-13 02:39 | HP.PCM.HOS_ITS ---
HPI - General General Date of Admission: 10/13/20 HPI Narrative JACE HARTMAN, is a 50 M with no signficant PMH who presents via the ED with a complaint of left leg redness. He has a history of cellulitis and was on PO amoxicillin chronically for about 6 months, which he lat took in April 2020. His last admission for cellulitis was in October 2019. He had left leg redness which started on night of admission. He had associated fever and chills but denied any trauma to his left lower extremity; he also admitted to nausea and vomiting. Review of systems otherwise negative. On review, temperature was 100.4 Fahrenheit and blood pressure was 147/84 with pulse rate of 99 and respiratory rate of 18. CBC showed WBC of 15.5 hemoglobin was 13.9. Chemistry was unremarkable. He has been admitted to manage for sepsis due to left lower extremity cellulitis. He was started on IV vancomycin and Zosyn in the ED. [facility] Medical History (Updated 10/13/20 @ 02:[address] Liyah Puente MD) Cellulitis Elbow fracture, right Home Medications cephalexin 500 mg PO TID 10/13/20 [History Last Taken Unknown] Allergy/AdvReac Type Severity Reaction Status Date / Time No Known Allergies Allergy Verified 10/13/20 01:00 Surgical History (Updated 10/13/20 @ 01:00 by Jude Sykes) H/O foot surgery Social History Smoking Status: Never smoker ROS Constitutional Constitutional: Reports chills and fever(s); Denies anorexia, fatigue, malaise or weakness Eyes Eyes: Denies double vision ENT HEENT: Denies dysphagia, nasal congestion or nasal discharge Cardiovascular Cardiovascular: Denies chest pain, dyspnea on exertion, edema, lightheadedness, orthopnea or palpitations Respiratory/Chest Respiratory/Chest: Denies cough, dyspnea, hemoptysis, shortness of breath at rest or shortness of breath with exertion Gastrointestinal Gastrointestinal: Denies abdominal pain, constipation, nausea or vomiting Genitourinary Genitourinary: Denies burning urination or urinary frequency Musculoskeletal Musculoskeletal: Denies arthralgias, back pain or joint pain Neurologic Neurologic: Denies confusion, dizziness or focal weakness Psychiatric Psychiatric: Denies anxiety Endocrine Endocrinology: Denies change in body appearance Hematologic/Lymphatic Hematologic/Lymphatic: Denies anemia Vital Signs Vital Signs Vital Signs: 10/13/20 00:57 10/13/20 01:02 10/13/20 01:03 Temperature 101.0 F H 101 F H Temperature Source Oral Oral Pulse Rate 86 92 Respiratory Rate 20 H 20 H Respiratory Effort Normal Respiratory Pattern Normal Blood Pressure 170/103 H 170/103 H Blood Pressure Mean 125 125 Pulse Ox 98 95 Oxygen Delivery Method Room Air Room Air 10/13/20 01:57 Temperature 100.4 F H Temperature Source Oral Pulse Rate 99 Respiratory Rate 18 Respiratory Effort Respiratory Pattern Blood Pressure 147/84 H Blood Pressure Mean 105 Pulse Ox 94 Oxygen Delivery Method Room Air Weight Weight: 261 lb 3.964 oz Body Mass Index (BMI) 32.6 Physical Exam Const alert, oriented x3 and no apparent distress General Appearance: cooperative HEENT normocephalic, head/scalp atraumatic and hearing grossly normal bilaterally Eyes PERRL, EOMs intact bilaterally and conjunctivae normal Neck no lymphadenopathy and supple Resp normal respiratory effort, no retractions, no use of accessory muscles and clear to auscultation bilaterally Cardio regular rate, regular rhythm, S1 normal heart sound, S2 normal heart sound and no murmurs GI normal to inspection, nondistended, normoactive bowel sounds, soft to palpation, non-tender and non-distended Extremity full ROM Extremity Narrative: LLE is erythematous, edematous also. Minimal tenderness on palpation Peripheral Pulses: Yes pulses 2+ throughout Skin Skin Narrative: LLE erythematous and edematous. Minimal tenderness on e xamination Neuro oriented x3 Sensorium / Orientation: awake and alert Psych affect normal Results Lab / Micro Data Result Diagrams: 10/13/20 01:04 10/13/20 01:04 Labs: Laboratory Results - last 24 hr 10/13/20 01:04: WBC 15.5 H, RBC 4.64, Hgb 13.9, Hct 40.4, MCV 87.1, MCH 30.0, MCHC 34.4, RDW Std Deviation 38.8, RDW Coeff of Siri 12.3, Plt Count 177, MPV 10.0, Immature Gran % (Auto) 0.600, Neut % (Auto) 91.2 H, Lymph % (Auto) 3.7 L, Caswell % (Auto) 4.1, Eos % (Auto) 0.1, Baso % (Auto) 0.3, Absolute Neuts (auto) 14.1 H, Absolute Lymphs (auto) 0.58 L, Nucleated RBC % 0 10/13/20 01:04: Sodium 138, Potassium 4.1, Chloride 107, Carbon Dioxide 28.0, Anion Gap 3 L, BUN 23 H, Creatinine 1.27, Estim Creat Clear Calc 81.32, Est GFR (MDRD) Af Amer 77, Est GFR (MDRD) Non-Af 63, BUN/Creatinine Ratio 18.1, Glucose 115 H, Calcium 9.0 10/13/20 01:04: Lactic Acid 0.9 Radiology Impression Chest X-Ray 10/13/20 01:22 IMPRESSION: Mild right midlung atelectasis otherwise no acute cardiopulmonary disease. Electronically Signed: Jovita Haro MD at 2:16 EDT , Service support , Assessment & Plan Assessment/Plan (1) Cellulitis of left lower leg: (2) Sepsis: QUALIFIERS: Sepsis acute organ dysfunction status: without acute organ dysfunction Sepsis type: sepsis due to unspecified organism Qualified Code(s): A41.9 - Sepsis, unspecified organism PLAN: #Sepsis due to cellulitis of LLE * SIRS criteria is 2/4 (fever and leucocytosis) with obvious focus of infection * admit to PCU as he has sepsis from cellulitis * hydrate gently with IVF * IV vancomycin and zosyn * get blood cultures * PO tylenol, PO oxycodone and IV morphine prn for pain * does have a hsitoyr of recurrent cellulitis. * will get Duplex of LLE to make sure he doesnt have a DVT; he says his left leg always gets swollen like that when he has cellulitis, and previous USGs have been negative. * DVT prophylaxis: lovenox Charges/Coding Visit Charges Inpatient E&M: 87565 Init Hosp L3
--- NOTE | 2020-10-13 02:52 | EDS_ITS ---
HPI History of Present Illness Chief Complaint: Cellulitis Informant: patient Onset/Context/Timing Onset: Today Current Severity: Moderate Maximum Severity: Moderate Narrative Narrative: 50-year-old male presenting with left lower extremity redness and fever. Patient states he has had multiple admissions in the past secondary to cellulitis. He states this started at 9 PM tonight. He noticed redness in his leg and then noted fever. Denies other complaints. Prior similar symptoms: Yes Recent Illness/Hospitalization: No PFSH PFSH Medical History (Updated 10/13/20 @ 02:[address] Liyah Puente MD) Cellulitis Elbow fracture, right Home Medications cephalexin 500 mg PO TID 10/13/20 [History Last Taken Unknown] Allergy/AdvReac Type Severity Reaction Status Date / Time No Known Allergies Allergy Verified 10/13/20 01:00 Surgical History (Updated 10/13/20 @ 01:00 by Jude Sykes) H/O foot surgery Social History Smoking Status: Never smoker ROS ROS ED Constitutional Constitutional ED: Reports chills and fever(s) Eyes Eyes: Denies change in vision ENT ENT ED: Denies rhinorrhea or sore throat Cardiovascular Cardiovascular: Denies chest pain or palpitations Respiratory/Chest Respiratory/Chest: Denies cough or dyspnea Gastrointestinal Gastrointestinal: Denies abdominal pain, diarrhea, nausea or vomiting Genitourinary Genitourinary ED: Denies dysuria Musculoskeletal Musculoskeletal: Reports other Details: left leg redness Integumentary Denies rash Neurologic Neurologic: Denies headache(s) Psychiatric Psychiatric: Denies suicidal thoughts EXAM Physical Exam Const Vital Signs: 10/13/20 00:57 10/13/20 01:02 10/13/20 01:03 Temperature 101.0 F H 101 F H Temperature Source Oral Oral Pulse Rate 86 92 Respiratory Rate 20 H 20 H Respiratory Effort Normal Respiratory Pattern Normal Blood Pressure 170/103 H 170/103 H Blood Pressure Mean 125 125 Pulse Ox 98 95 Oxygen Delivery Method Room Air Room Air 10/13/20 01:57 10/13/20 02:52 Temperature 100.4 F H 99 F Temperature Source Oral Oral Pulse Rate 99 97 Respiratory Rate 18 18 Respiratory Effort Respiratory Pattern Blood Pressure 147/84 H 145/80 H Blood Pressure Mean 105 101 Pulse Ox 94 97 Oxygen Delivery Method Room Air Room Air Positive well nourished and well developed General Appearance ED: well developed HEENT Reports normocephalic and head/scalp atraumatic Eyes PERRL and EOMs intact bilaterally Neck supple General: Negative for tenderness Chest Wall inspection of chest normal Resp normal respiratory effort and clear to auscultation bilaterally Cardio regular rate and regular rhythm GI non-tender and non-distended Palpation: soft; Negative for guarding or rebound tenderness present no CVA tenderness Extremity Extremity Narrative: L > R lower extremity swelling. LLE erythema and warmth. Normal distal pulses Neuro oriented x3 Sensorium / Orientation: alert Psych mental status grossly normal MDM MDM MDM Narrative Medical decision making narrative: Family states his left leg is typically larger than the right. White count is 15.5. Lactic acid is normal. He was given Tylenol, IV fluids, vancomycin. [facility] [place] currently has no beds available. Discussed with hospitalist for admission. Lab Data Attestation: I reviewed the patient's lab results. Labs: Laboratory Results - last 24 hr 10/13/20 10/13/20 10/13/20 01:04 01:04 01:04 WBC 15.5 H RBC 4.64 Hgb 13.9 Hct 40.4 MCV 87.1 MCH 30.0 MCHC 34.4 RDW Std Deviation 38.8 RDW Coeff of Siri 12.3 Plt Count 177 MPV 10.0 Immature Gran % (Auto) 0.600 Neut % (Auto) 91.2 H Lymph % (Auto) 3.7 L Baker % (Auto) 4.1 Eos % (Auto) 0.1 Baso % (Auto) 0.3 Absolute Neuts (auto) 14.1 H Absolute Lymphs (auto) 0.58 L Nucleated RBC % 0 Sodium 138 Potassium 4.1 Chloride 107 Carbon Dioxide 28.0 Anion Gap 3 L BUN 23 H Creatinine 1.27 Estim Creat Clear Calc 81.32 Est GFR (MDRD) Af Amer 77 Est GFR (MDRD) Non-Af 63 BUN/Creatinine Ratio 18.1 Glucose 115 H Lactic Acid 0.9 Calcium 9.0 Radiography Chest X-Ray - ED: 1 View, Read by ED Physician and Read by Radiologist Diagnostic Testing: Radiology Impression Chest X-Ray 10/13/20 01:22 IMPRESSION: Mild right midlung atelectasis otherwise no acute cardiopulmonary disease. Electronically Signed: Jovita Haro MD at 2:16 EDT , Service support , Discharge Plan Dx/Rx/DC Orders Clinical Impression: Sepsis, Cellulitis of left lower leg Disposition Disposition: Acute Care Hospital [facility]
--- NOTE | 2020-10-13 03:59 | PCM.RX.CS ---
Consult Pharmacy has been consulted to manage selected antiobiotic: Vancomycin Type of Consult: New start Suspected Infection: Sepsis, Skin/Soft tissue Prior Doses of Antibiotics Received/Current Regimen: Medications Vancomycin HCl 2,000 mg/ (Sodium Chloride) 540 mls @ 250 mls/hr IV Q12H ROBB Vancomycin HCl 1,750 mg/ (Sodium Chloride) 535 mls @ 250 mls/hr IV X1 ONE Stop: 10/13/20 04:56 Last Admin: 10/13/20 03:16 Dose: 250 mls/hr Labs: Sodium 138 mmol/L (136-145) 10/13/20 01:04 Potassium 4.1 mmol/L (3.5-5.1) 10/13/20 01:04 Chloride 107 mmol/L (98-107) 10/13/20 01:04 Carbon Dioxide 28.0 mmol/L (21.0-32.0) 10/13/20 01:04 Anion Gap 3 (5-15) L 10/13/20 01:04 BUN 23 mg/dL (7-18) H 10/13/20 01:04 Creatinine 1.27 mg/dL (0.70-1.30) 10/13/20 01:04 Est GFR (MDRD) Af Amer 77 mL/min (>60) 10/13/20 01:04 Est GFR (MDRD) Non-Af 63 mL/min (>60) 10/13/20 01:04 BUN/Creatinine Ratio 18.1 RATIO (10-20) 10/13/20 01:04 Glucose 115 mg/dL (74-106) H 10/13/20 01:04 Weight used for dosin.4 kg Estimated Creatinine Clearance: 81 Goal Trough: 15-20 mcg/mL Pharmacy Plan for Drug Dosing: Pharmacy Service will continue to monitor and adjust dosing as required. Follow-Up Labs: Trough Vancomycin Labs to be done on [date and time ordered]: 10/14/20 @1500
[2020-10-13 04:20] LABS: Bacteria 0 SEEN /hpf (None Seen); Red Blood Cells-Urine 0 SEEN /hpf (0-5); Squamous Epithelial Cells - UA 0 SEEN /hpf (0-5); White Blood Cells 0 SEEN /hpf (0-5)
[2020-10-13 04:22] LABS: Color, Urine Yellow (Yellow); Glucose, Dipstick Normal (Normal); Ketone-Dipstick Negative (Negative); Leukocyte Esterase-Dipstick Negative /ul (Negative); Nitrite-Dipstick Negative (Negative); Occult Blood-Urine Negative /ul (Negative); Protein-Dipstick 15 mg/dl (Negative); Specific Gravity, Urine 1.005 (1.002-1.030); Urine Bilirubin Dipstick Negative (Negative); Urine Clarity Clear (Clear); Urine Urobilinogen Normal (Normal)
[2020-10-13 04:30] LABS: Mucous, Urine 1+ /hpf (<or=2+)
[2020-10-13] MEDS: 0.9% Normal Saline 1,000 ML 125 ML IV ×2 (05:44→13:44)
--- NOTE | 2020-10-13 07:00 | VDLE_ITS ---
Reason For Study: swelling Procedure LEFT This is a venous duplex using B-mode, color GSV is normal. flow and spectral Doppler. CFV is compressible, spontaneous, phasic, Exam performed portable in patient room. competent, and demonstrates normal The exam was abbreviated due to the COVID 19 augmentation. protocol. FV is compressible, spontaneous, phasic, The exam was diagnostic. competent and demonstrates normal A preliminary report was called and/or faxed augmentation. to Amber VALDEZ. POP V is compressible, spontaneous, phasic, competent and demonstrates normal augmentation. T/P Trunk is compressible. PTV is compressible. LT PerV is compressible. VL/Venous Duplex US, Unilateral Interpretation Summary There is no evidence of left lower extremity deep vein thrombosis. Left great s aphenous vein appears patent and compressible segmentally. COVID-19 protocol utilized Ordering Physician: Grace Mendiola Performed By: Monster López RVT
[2020-10-13 07:18] LABS: Absolute Neutrophil Count 15.4 X10^3/uL (2.0-7.7); Basophil# 0.03 X10^3/uL; Basophil% 0.2 % (0-1); Hematocrit 36.3 % (40-54); Hemoglobin 12.6 g/dL (13.0-16.5); Lymphocyte % 3.5 % (19-41); Mean Corp Hgb Conc 34.7 g/dL (32-36); Mean Corpuscular Hgb 30.2 pg (27.0-32.0); Mean Corpuscular Volume 87.1 fL (80-94); Mean Platelet Vol. 10.1 fl (6.2-12.0); Monocyte# 0.69 X10^3/uL; NRBC Flagged by Analyzer 0 % (0-5); Neutrophil # 15.42 X10^3/uL (2.7-7.7); Neutrophil % 90.3 % (47-70); POSITIVE DIFFERENTIAL YES; Platelet Count 152 K/mm3 (150-450); RBC Distribution Width CV 12.2 % (11.6-14.6); RBC Distribution Width SD 38.5 fl (35.1-43.9); Red Blood Count 4.17 M/mm3 (4.6-6.2); White Blood Count 17.1 K/mm3 (4.4-11.0)
[2020-10-13 07:25] LABS: Differential Indicated SCAN CRITERIA MET
[2020-10-13 07:46] LABS: Anion Gap 6 (5-15); BUN 20 mg/dL (7-18); Calcium,Total 7.8 mg/dL (8.5-10.1); Chloride 110 mmol/L (98-107); Creatinine, Serum 1.05 mg/dL (0.70-1.30); EST Glomerular Filtration Rate 79 mL/min (>60); Est Glom Filt Rate - Afr Amer 95 mL/min (>60); Estimated Creatinine Clearance 98.36 ml/min; Glucose 115 mg/dL (74-106); Potassium 3.9 mmol/L (3.5-5.1); Sodium Level 141 mmol/L (136-145)
[2020-10-13] MEDS: Enoxaparin 40 MG/0.4 ML Syringe SC (08:32)
--- NOTE | 2020-10-13 11:10 | CASEMGMT ---
RN EVERETTE Face to Face with patient for initial transition planning/care coordination assessment. RN CM introduced self and role at [facility]. Patient lying in bed, alert and oriented, at bedside. Patient willing to participate in assessment and is able to answer all questions appropriately. Care providers, pharmacy, and demographics verified. Patient wishes to discharge home, denies need for home health at this time. Patient states he has no further needs or concerns at this time. CM to follow for discharge planning needs that may arise. PCP: Gabriela Montes De Oca [facility] Specialists: none Preferred Pharmacy: [facility] Insurance: [employer] [place] Prescription Benefit: yes Living Will/HPOA: yes but old and would like to updated. SW notified LNOK: Living Arrangements: Patient lives with in a 2 story home with bed and bath on first floor. 2 steps and railing to enter the home. Patient states he is independent at home. Transportation: self/ DME/HHC: Patient states he has lymphedema pump at home. Patient denies additional DME or HHC. Disposition Plan: Patient to discharge home with family support and follow-up plans in place. Shirley JENKINS, RN, CM
--- NOTE | 2020-10-13 12:51 | PCM.CONS.GEN ---
Assessment & Plan Assessment/Plan (1) Sepsis: QUALIFIERS: Sepsis type: sepsis due to unspecified organism Sepsis acute organ dysfunction status: without acute organ dysfunction Qualified Code(s): A41.9 - Sepsis, unspecified organism (2) Cellulitis of left lower leg: PLAN: sepsis due to LLE cellulitis - feeling better. bcx neg so far. Narrow abx to cefazolin. Likely would benefit from remaining on [facility] low dose suppressive amoxicillin after acute infection is treated. Will follow, thank you HPI Consult Data Date of Consult: 10/13/20 HPI Narrative HPI Narrative: JACE HARTMAN, is a 50 M who presented last night with same day h/o LLE pain, chills, not feeling well. Recently on a 300+ mile hiking trip. Got bug bites and had been scratching his legs some. Got cellulitis 3-4 times in a few month period in 2019, admitted 10/2019 with strep bacteremia, took suppressive amox for about 6 months after that. With new symptoms, he came to ED, admitted on vanc/zosyn, feeling better today, LLE more red. He and have gotten covid shots. Full ROS performed and neg except as noted above. [facility] Medical History Cellulitis Elbow fracture, right Home Medications cephalexin 500 mg PO TID PRN 10/13/20 [History Last Taken 10/12/20 22:00] Allergy/AdvReac Type Severity Reaction Status Date / Time No Known Allergies Allergy Verified 10/13/20 01:00 Surgical History H/O foot surgery Social History Smoking Status: Never smoker Physical Exam Const alert, oriented x3 and no apparent distress General Appearance: cooperative HEENT normocephalic and head/scalp atraumatic Eyes PERRL and EOMs intact bilaterally Neck supple and No nodes Resp normal air movement and clear to auscultation bilaterally Cardio regular rate and regular rhythm Heart Sounds: Negative for murmur GI normal to inspection, nondistended, normoactive bowel sounds Extremity no clubbing, cyanosis or edema Skin Skin Narrative: L lower leg mild redness and warmth Neuro CN's II-XII intact bilaterally Psych mental status grossly normal Lab / Micro Data Result Diagrams: 10/13/20 06:57 10/13/20 06:57 Labs: Laboratory Results - last 24 hr 10/13/20 01:04: WBC 15.5 H, RBC 4.64, Hgb 13.9, Hct 40.4, MCV 87.1, MCH 30.0, MCHC 34.4, RDW Std Deviation 38.8, RDW Coeff of Siri 12.3, Plt Count 177, MPV 10.0, Immature Gran % (Auto) 0.600, Neut % (Auto) 91.2 H, Lymph % (Auto) 3.7 L, [place] % (Auto) 4.1, Eos % (Auto) 0.1, Baso % (Auto) 0.3, Absolute Neuts (auto) 14.1 H, Absolute Lymphs (auto) 0.58 L, Nucleated RBC % 0 10/13/20 01:04: Sodium 138, Potassium 4.1, Chloride 107, Carbon Dioxide 28.0, Anion Gap 3 L, BUN 23 H, Creatinine 1.27, Estim Creat Clear Calc 81.32, Est GFR (MDRD) Af Amer 77, Est GFR (MDRD) Non-Af 63, BUN/Creatinine Ratio 18.1, Glucose 115 H, Calcium 9.0 10/13/20 01:04: Lactic Acid 0.9 10/13/20 04:12: Urine Color Yellow, Urine Clarity Clear, Urine pH 7.0, Ur Specific Colon 1.005, Urine Protein 15 H, Urine Glucose (UA) Normal, Urine Ketones Negative, Urine Occult Blood Negative, Urine Nitrite Negative, Urine Bilirubin Negative, Urine Urobilinogen Normal, Ur Leukocyte Esterase Negative, Urine RBC 0 SEEN, Urine WBC 0 SEEN, Ur Squamous Epith Cells 0 SEEN, Urine Bacteria 0 SEEN, Urine Mucus 1+ 10/13/20 06:57: WBC 17.1 H, RBC 4.17 L, Hgb 12.6 L, Hct 36.3 L, MCV 87.1, MCH 30.2, MCHC 34.7, RDW Std Deviation 38.5, RDW Coeff of Siri 12.2, Plt Count 152, MPV 10.1, Immature Gran % (Auto) 2.000 H, Neut % (Auto) 90.3 H, Lymph % (Auto) 3.5 L, [place] % (Auto) 4.0, Eos % (Auto) 0.0, Baso % (Auto) 0.2, Absolute Neuts (auto) 15.4 H, Absolute Lymphs (auto) 0.60 L, Nucleated RBC % 0 10/13/20 06:57: Sodium 141, Potassium 3.9, Chloride 110 H, Carbon Dioxide 25.0, Anion Gap 6, BUN 20 H, Creatinine 1.05, Estim Creat Clear Calc 98.36, Est GFR (MDRD) Af Amer 95, Est GFR (MDRD) Non-Af 79, BUN/Creatinine Ratio 19.0, Glucose 115 H, Calcium 7.8 L Radiology Impression Chest X-Ray 10/13/20 01:22 IMPRESSION: Mild right midlung atelectasis otherwise no acute cardiopulmonary disease. Electronically Signed: Jovita Haro MD at 2:16 EDT , Service support , Venous Doppler Study 10/13/20 07:00 Interpretation Summary There is no evidence of left lower extremity deep vein thrombosis. Left great saphenous vein appears patent and compressible segmentally. COVID-19 protocol utilized Ordering Physician: Grace Mendiola Performed By: Monster López, RVT
--- NOTE | 2020-10-13 13:38 | CASEMGMT ---
Social Work SW met with pt and Annabelle and assisted pt with completing Health Care POA and Living Will. Pt naming his Annabelle as HCPOA. Original given to pt and copy placed on pt chart. ROSIO Jasso
[2020-10-13] MEDS: Cefazolin 2 GM in 0.9% Normal Saline 100 ML IV ×2 (13:55→21:42)
--- NOTE | 2020-10-13 14:29 | PCM.HOSP.N ---
Hospitalist Note Patient was admitted early this morning with recurrent left lower extremity cellulitis. He was treated approximately 1 year ago here for cellulitis in the same region and had been on oral suppressive amoxicillin until approximately April of this year. 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 On admission his white count was markedly elevated and he was febrile. He was started on vancomycin and Zosyn in the emergency department and these have been continued. He had been placed on Keflex as an outpatient prior to admission. He has had intermittent soft blood pressures but is not hypotensive. And his vitals are otherwise stable other than low-grade temperature elevations most recently with his last documented fever being at approximately 2 AM this morning at 100.4 degrees. He had been seen by infectious disease in the past regarding his left lower extremity and with his utilization of chronic suppression infectious disease was reconsulted. I was called with initial blood cultures results that show gram-positive cocci in chains with identification and susceptibilities pending. Upon review his blood cultures from a year ago grew out group G strep. On exam there is no significant open areas on his leg that would indicate a nidus for infection. Diagnoses: Sepsis secondary to left lower extremity cellulitis/gram-positive bacteremia Chronic left lower extremity edema Leukocytosis
[2020-10-14] VITALS (9 sets, daily range): BP systolic 111–156; BP diastolic 65–96; PULSE 51–71; RESP 14–16; TEMP 36.4–36.9; O2SAT 98–99
[2020-10-14] MEDS: Cefazolin 2 GM in 0.9% Normal Saline 100 ML IV ×3 (05:49→21:30)
[2020-10-14] MEDS: 0.9% Saline Lock 10 ML Syringe IV ×3 (05:49→21:30)
[2020-10-14 06:59] LABS: Absolute Lymphocyte Count 1.22 X10^3/uL (0.83-4.51); Absolute Neutrophil Count 6.2 X10^3/uL (2.0-7.7); Basophil# 0.03 X10^3/uL; Basophil% 0.4 % (0-1); Eosinophil# 0.09 X10^3/uL; Eosinophils% 1.1 % (0-5); Hematocrit 35.6 % (40-54); Lymphocyte # 1.22 X10^3/ul (0.83-4.51); Lymphocyte % 14.7 % (19-41); Mean Corp Hgb Conc 33.7 g/dL (32-36); Mean Corpuscular Hgb 29.8 pg (27.0-32.0); Mean Corpuscular Volume 88.3 fL (80-94); Mean Platelet Vol. 10.3 fl (6.2-12.0); Monocyte# 0.65 X10^3/uL; Monocyte% 7.9 % (0-10); NRBC Flagged by Analyzer 0 % (0-5); Neutrophil # 6.24 X10^3/uL (2.7-7.7); Neutrophil % 75.3 % (47-70); Platelet Count 122 K/mm3 (150-450); RBC Distribution Width CV 12.4 % (11.6-14.6); Red Blood Count 4.03 M/mm3 (4.6-6.2); White Blood Count 8.3 K/mm3 (4.4-11.0)
[2020-10-14 07:22] LABS: Anion Gap 5 (5-15); BUN 14 mg/dL (7-18); BUN/Creat Ratio 12.6 RATIO (10-20); Calcium,Total 7.9 mg/dL (8.5-10.1); Chloride 109 mmol/L (98-107); Creatinine, Serum 1.11 mg/dL (0.70-1.30); EST Glomerular Filtration Rate 74 mL/min (>60); Est Glom Filt Rate - Afr Amer 89 mL/min (>60); Estimated Creatinine Clearance 93.04 ml/min; Glucose 115 mg/dL (74-106); Potassium 3.6 mmol/L (3.5-5.1); Sodium Level 139 mmol/L (136-145)
[2020-10-14] MEDS: Enoxaparin 40 MG/0.4 ML Syringe SC (07:31)
--- NOTE | 2020-10-14 10:17 | PN.ID_ITS ---
Physical Exam Narrative Feeling better, no fever, no n/v/d. Const alert and no apparent distress General Appearance: cooperative Resp normal air movement and clear to auscultation bilaterally Cardio regular rate and regular rhythm GI normal to inspection, nondistended, normoactive bowel sounds Skin Skin Narrative: LLE redness ID ID: Route of nutrition/ use of supplements: [] Nutritional Intake: [] IV Site: [] Acosta Catheter: [] Assessment & Plan Assessment/Plan (1) Sepsis: QUALIFIERS: Sepsis type: sepsis due to unspecified organism Sepsis acute organ dysfunction status: without acute organ dysfunction Qualified Code(s): A41.9 - Sepsis, unspecified organism (2) Cellulitis of left lower leg: PLAN: sepsis due to LLE cellulitis - feeling better. bcx with 1 of 2 showing GBS at this point. Narrowed abx to cefazolin. Likely would benefit from remaining on nursing home low dose suppressive amoxicillin after acute infection is treated. May be able to go home on keflex tomorrow if continues to improve. Will follow
--- NOTE | 2020-10-14 10:51 | ECHOD_ITS ---
Reason For Study: SEPSIS Procedure This was a 2D Doppler, Color Flow transthoracic echocardiogram. Exam performed portable in patient room. Left Ventricle Normal LV size. The estimated ejection fraction is 65 %. No evidence for diastolic dysfunction. No regional wall motion abnormalities noted. Right Ventricle Normal RV size. Normal systolic function. Atria The left atrium is mildly enlarged. Normal right atrium. No doppler evidence for ASD. Mitral Valve There is no mitral valve stenosis. Mild (1+) mitral valve insufficiency. Tricuspid Valve There is no tricuspid stenosis. Trivial tricuspid valve insufficiency. Unable to estimate RV systolic pressure due to insufficient tricuspid regurgitant envelope. Aortic Valve Trisinus/trileaflet aortic valve. There is no aortic stenosis. No aortic valve insufficiency. Pulmonic Valve There is no pulmonic valvular stenosis. No pulmonic valve insufficiency. Great Vessels Normal aortic root. Pericardium/Pleural No pericardial effusion. MMode/2D Measurements & Calculations LVIDd: 5.3 cm IVSd: 0.98 cm Ao root diam: 3.5 cm LVIDs: 3.0 cm LVPWd: 1.0 cm RVDd: 3.6 cm FS: 42.3 % LAV(MOD-bp): 83.9 ml LA A4 area: 26.8 cm2 LA dimension(2D): 4.8 cm LAV(MOD-bp) Indexed: 34.0 ml/m2 LAV(MOD-sp2): 70.2 ml LAV(MOD-sp4): 93.3 ml RA A4 area: 16.2 cm2 Time Measurements MV dec time: 0.28 sec Doppler Measurements & Calculations MV E max nazario: 81.6 cm/sec Lat Peak E' Nazario: 11.9 cm/sec Med Peak E' Nazario: 11.0 cm/sec MV A max nazario: 62.0 cm/sec E/E' lat: 6.8 E/E' med: 7.4 MV E/A: 1.3 Ao V2 max: 141.8 cm/sec LV V1 max: 132.6 cm/sec PA V2 max: 103.8 cm/sec Ao max P.0 mmHg LV V1 max P.0 mmHg TR max nazario: 285.1 cm/sec TR max P.5 mmHg ECHO/Echo Complete Interpretation Summary The estimated ejection fraction is 65 %. No evidence for diastolic dysfunction. The left atrium is mildly enlarged. Mild (1+) mitral valve insufficiency. Ordering Physician: Elissa Ramirez Referring Physician: [facility] Performed By: Alyse Barrow RDCS, RVT
--- NOTE | 2020-10-14 15:19 | PN.HOSP_ITS ---
Subjective Subjective Patient states he is feeling much better today. States Dr. Barrera was in this morning and reports that he stated we may be able to discharge him home tomorrow. I agree. Objective Data Objective Data Vital Signs: Vital Signs Temp Pulse Resp BP Pulse Ox 98.5 F 57 L 16 143/84 H 99 10/14/20 14:00 10/14/20 14:00 10/14/20 14:00 10/14/20 14:00 10/14/20 14:00 Oxygen Delivery Method Room Air Weight: 119.4 kg Body Mass Index (BMI) 32.8 Intake & Output: Intake and Output for Last 24 Hours 10/12/20 10/13/20 10/14/20 23:59 23:59 23:59 Intake Total 4252.92 / 4252.92 520 / 520 Balance 4252.92 / 4252.92 520 / 520 Lab / Micro Data Result Diagrams: 10/14/20 06:38 10/14/20 06:38 Labs: Laboratory Results - last 24 hr 10/14/20 06:38: WBC 8.3, RBC 4.03 L, Hgb 12.0 L, Hct 35.6 L, MCV 88.3, MCH 29.8, MCHC 33.7, RDW Std Deviation 40.0, RDW Coeff of Siri 12.4, Plt Count 122 L, MPV 10.3, Immature Gran % (Auto) 0.600, Neut % (Auto) 75.3 H, Lymph % (Auto) 14.7 L, [place] % (Auto) 7.9, Eos % (Auto) 1.1, Baso % (Auto) 0.4, Absolute Neuts (auto) 6.2, Absolute Lymphs (auto) 1.22, Nucleated RBC % 0 10/14/20 06:38: Sodium 139, Potassium 3.6, Chloride 109 H, Carbon Dioxide 25.0, Anion Gap 5, BUN 14, Creatinine 1.11, Estim Creat Clear Calc 93.04, Est GFR (MDRD) Af Amer 89, Est GFR (MDRD) Non-Af 74, BUN/Creatinine Ratio 12.6, Glucose 115 H, Calcium 7.9 L Micro: Microbiology 10/13/20 01:04 Blood Culture (Wb) - Anticubital Left Blood Culture - Preliminary Streptococcus agalactiae (B) Physical Exam Const alert, oriented x3 and no apparent distress Constitutional Narrative: Overweight white male lying in bed watching television, appears comfortable, appears less toxic than yesterday Exam Limitations: no limitations HEENT head/scalp atraumatic Head and Scalp: normocephalic Resp normal respiratory effort, no retractions, no use of accessory muscles and clear to auscultation bilaterally Cardio regular rate, regular rhythm, S1 normal heart sound, S2 normal heart sound, no murmurs, no rub, no gallops, no clicks and no JVD GI normal to inspection, nondistended, normoactive bowel sounds, soft to palpation, non-tender and non-distended Extremity Extremity Narrative: Left lower extremity with less erythema, warmth, and tenderness, erythematous area seems to be retracting from outlined area, no cyanosis or clubbing General Extremity: edema left Peripheral Pulses: Yes pulses 2+ throughout Skin Skin Narrative: See above Neuro oriented x3 Sensorium / Orientation: awake, alert, oriented to person, oriented to place and oriented to time Assessment & Plan Assessment/Plan (1) Sepsis: QUALIFIERS: Sepsis type: sepsis due to unspecified organism Sep sis acute organ dysfunction status: without acute organ dysfunction Qualified Code(s): A41.9 - Sepsis, unspecified organism (2) Cellulitis of left lower leg: (3) Streptococcal bacteremia: PLAN: Sepsis secondary to strep bacteremia from left lower extremity cellulitis -Continue antibiotics per ID recommendations -We will check echo since patient has had repeated infections gram-negative organisms -No murmur on exam -1 of 2 blood cultures positive for group B strep -We will likely benefit from long-term low-dose suppressive antibiotics after acute infection is treated -Possible discharge tomorrow if continues to clinically improve Leukocytosis -Resolved Chronic left lower extremity edema -Stable -Venous Doppler was negative for DVT DVT prophylaxis -Continue enoxaparin CODE STATUS -Full code Charges/Coding Visit Charges Inpatient E&M: 06693 Subs Hosp L2
[2020-10-15 03:00] VITALS: PULSE 52
[2020-10-15 05:30] VITALS: BP 126/69; PULSE 71; RESP 16; TEMP 36.6; O2SAT 97
[2020-10-15] MEDS: Cefazolin 2 GM in 0.9% Normal Saline 100 ML IV (05:45)
[2020-10-15] MEDS: 0.9% Saline Lock 10 ML Syringe IV (05:45)
[2020-10-15 05:50] LABS: Absolute Lymphocyte Count 1.74 X10^3/uL (0.83-4.51); Absolute Neutrophil Count 3.7 X10^3/uL (2.0-7.7); Basophil# 0.03 X10^3/uL; Basophil% 0.5 % (0-1); Eosinophil# 0.21 X10^3/uL; Eosinophils% 3.3 % (0-5); Hematocrit 34.4 % (40-54); Hemoglobin 11.6 g/dL (13.0-16.5); Lymphocyte # 1.74 X10^3/ul (0.83-4.51); Lymphocyte % 27.5 % (19-41); Mean Corp Hgb Conc 33.7 g/dL (32-36); Mean Corpuscular Hgb 29.2 pg (27.0-32.0); Mean Corpuscular Volume 86.6 fL (80-94); Mean Platelet Vol. 10.3 fl (6.2-12.0); Monocyte# 0.64 X10^3/uL; Monocyte% 10.1 % (0-10); NRBC Flagged by Analyzer 0 % (0-5); Neutrophil # 3.69 X10^3/uL (2.7-7.7); Neutrophil % 58.3 % (47-70); Platelet Count 138 K/mm3 (150-450); RBC Distribution Width CV 12.3 % (11.6-14.6); RBC Distribution Width SD 39.2 fl (35.1-43.9); Red Blood Count 3.97 M/mm3 (4.6-6.2); White Blood Count 6.3 K/mm3 (4.4-11.0)
[2020-10-15 06:11] LABS: Anion Gap 5 (5-15); BUN 13 mg/dL (7-18); Calcium,Total 8.2 mg/dL (8.5-10.1); Chloride 108 mmol/L (98-107); EST Glomerular Filtration Rate 83 mL/min (>60); Est Glom Filt Rate - Afr Amer 101 mL/min (>60); Estimated Creatinine Clearance 103.28 ml/min; Glucose 97 mg/dL (74-106); Potassium 3.8 mmol/L (3.5-5.1); Sodium Level 140 mmol/L (136-145)
[2020-10-15 07:14] VITALS: PULSE 48
[2020-10-15 10:17] VITALS: BP 122/78; PULSE 50; RESP 16; TEMP 36.8; O2SAT 98
[2020-10-15] MEDS: Enoxaparin 40 MG/0.4 ML Syringe SC (10:23)
--- NOTE | 2020-10-15 10:59 | PCM.DC.SUM ---
Providers Date of Admission: 10/13/20 Primary Care Physician: [facility] Consultations 10/13/20 07:33 Consult: Infectious Disease Routine Consulting Provider: Kemal Mullins Reason for Consult: recurrent cellulitis EMERGENT Consult: No MD Notified: Yes Date Notified: 10/13/20 Time Notified: 07:33 Method of Notification: Answering Service Reason For Visit: SEPSIS DUE TO CELLULITIS Diagnosis Discharge Diagnosis (1) Sepsis: Status: Acute Code(s): A41.9 - Sepsis, unspecified organism Qualifiers: Sepsis acute organ dysfunction status: without acute organ dysfunction Sepsis type: sepsis due to unspecified organism Qualified Code(s): A41.9 - Sepsis, unspecified organism (2) Cellulitis of left lower leg: Status: Acute Code(s): L03.116 - Cellulitis of left lower limb (3) Streptococcal bacteremia: Status: Acute Code(s): R78.81 - Bacteremia; B95.5 - Unspecified streptococcus as the cause of diseases classified elsewhere Medications at Discharge Home Medications amoxicillin 500 mg PO DAILY #30 tab 10/15/20 cephalexin 500 mg PO TID #21 cap 10/15/20 Hospital Course Operations None Procedures 2-D Echocardiogram Summary of Care Provided Minutes Spent on Discharge: 28 Hospital Course: Mr. Doherty is a 50-year-old 10/13/2020 with left lower extremity leg redness. He has a history of cellulitis and has had a problem with this leg since he had swine flu remotely. Of note he also has a history of DVT in that leg but has had multiple ultrasounds since which have been negative for any recurrent DVT. He was admitted in October 2019 most recently for cellulitis of his left lower extremity and was treated with outpatient amoxicillin for approximately 6 months and his last dose was in April 2020. He had been doing well since that time but started having redness a couple days prior to admission. He was febrile on admission with a temp of 100.4 but was otherwise hemodynamically stable. He was placed on IV vancomycin and Zosyn and admitted to PCU. His symptoms started to improve within 24 hours. His blood cultures were 1 of 2+ for group B strep. Infectious disease evaluated the patient and his antibiotics were narrowed to cefazolin after sensitivities were obtained. They recommended disc charged on Keflex 500 mg 3 times daily for 1 week with the transition to amoxicillin 500 mg daily for an undefined amount of time. Prescriptions were written for these antibiotics and faxed to his pharmacy upon discharge. He had an ultrasound of his left lower extremity which shows no DVT. He had an echocardiogram given his recurrent gram-positive bacteremia which showed a normal EF and no signs of vegetation. He is to follow-up with infectious disease in 1 month. Discharge diagnoses: Sepsis Group B strep bacteremia Left lower extremity cellulitis Leukocytosis Chronic left lower extremity edema Physical Exam Const alert, oriented x3 and no apparent distress Constitutional Narrative: Overweight white male lying in bed watching television, appears comfortable General Appearance: cooperative Exam Limitations: no limitations HEENT normocephalic and head/scalp atraumatic Resp normal respiratory effort, no retractions, no use of accessory muscles and clear to auscultation bilaterally Cardio regular rate, regular rhythm, S1 normal heart sound, S2 normal heart sound, no murmurs, no rub, no gallops, no clicks and no JVD GI normal to inspection, nondistended, normoactive bowel sounds, soft to palpation, non-tender and non-distended Extremity full ROM Extremity Narrative: Left lower extremity is hardly erythematous anymore, there is no tenderness or warmth, edema still present but patient indicates this is chronic General Extremity: edema left Skin Skin Narrative: See above Neuro oriented x3 Sensorium / Orientation: awake, alert, oriented to person, oriented to place and oriented to time Weight / BMI Weight Weight: 119.4 kg Body Mass Index (BMI) 32.8 ABG / Lab / Microbiology Data Result Diagrams: 10/15/20 05:26 10/15/20 05:26 Laboratory: Laboratory Results - last 24 hr 10/15/20 05:26: WBC 6.3, RBC 3.97 L, Hgb 11.6 L, Hct 34.4 L, MCV 86.6, MCH 29.2, MCHC 33.7, RDW Std Deviation 39.2, RDW Coeff of Siri 12.3, Plt Count 138 L, MPV 10.3, Immature Gran % (Auto) 0.300, Neut % (Auto) 58.3, Lymph % (Auto) 27.5, [place] % (Auto) 10.1 H, Eos % (Auto) 3.3, Baso % (Auto) 0.5, Absolute Neuts (auto) 3.7, Absolute Lymphs (auto) 1.74, Nucleated RBC % 0 10/15/20 05:26: Sodium 140, Potassium 3.8, Chloride 108 H, Carbon Dioxide 27.0, Anion Gap 5, BUN 13, Creatinine 1.00, Estim Creat Clear Calc 103.28, Est GFR (MDRD) Af Amer 101, Est GFR (MDRD) Non-Af 83, BUN/Creatinine Ratio 13.0, Glucose 97, Calcium 8.2 L Microbiology: Microbiology 10/13/20 01:04 Blood Culture (Wb) - Anticubital Left Blood Culture - Final Streptococcus agalactiae (B) 10/13/20 01:28 Blood Culture (Wb) - Anticubital Right Blood Culture - Preliminary No growth in 48 hours. Radiography Diagnostic Testing: Radiology Impression Echocardiogram 10/14/20 10:51 Interpretation Summary The estimated ejection fraction is 65 %. No evidence for diastolic dysfunction. The left atrium is mildly enlarged. Mild (1+) mitral valve insufficiency. Ordering Physician: Elissa Ramirez Referring Physician: [facility] Performed By: Alyse Barrow, FARHAD, RVT D/C Instructions Discharge Diet: No restrictions Meaningful Use Info Meaningful Use Diagnoses (Choose all that apply): None applicable Discharge Plan Admission Admit Date/Time: 10/13/20 02:50 Primary Reason for Your Visit: Left lower extremity cellulitis Attending Provider: Elissa Ramirez Primary Care Provider: [place] [place] Consulting Providers: Kemal Mullins Discharge Orders/Prescriptions Prescriptions: New cephalexin 500 mg capsule 500 mg PO TID Qty: 21 RF: 0 amoxicillin 500 mg tablet 500 mg PO DAILY Qty: 30 RF: 1 Discontinued cephalexin 500 mg capsule 500 mg PO TID PRN (Reason: cellulitis) RF: 0 Referrals / Follow Up: Kemal Mullins MD [STAFF PHYSICIAN] - Within 1 Month [facility] [Primary Care Provider] - Disposition Disposition (needs filled in before D/C Order can be placed): Home, Self Care Charges/Coding Visit Charges Inpatient E&M: 13960 Disch Hosp
--- NOTE | 2020-10-15 11:08 | CASEMGMT ---
Pt states no need for therapy or any other concern with discharge. Kamari VALDEZ CM
--- NOTE | 2020-10-15 12:20 | PCM.DC ---
Discharge Instructions Diet Discharge Diet: No restrictions Follow Up Care Test Results: Test results from this visit will be discussed in further detail at your follow-up appointment, if applicable. Discharge Plan Admission Admit Date/Time: 10/13/20 02:50 Primary Reason for Your Visit: Left lower extremity cellulitis Attending Provider: Elissa Ramirez Primary Care Provider: [facility] Consulting Providers: Kemal Mullins Discharge Orders/Prescriptions Prescriptions: New cephalexin 500 mg capsule 500 mg PO TID Qty: 21 RF: 0 amoxicillin 500 mg tablet 500 mg PO DAILY Qty: 30 RF: 1 Discontinued cephalexin 500 mg capsule 500 mg PO TID PRN (Reason: cellulitis) RF: 0 Referrals / Follow Up: Kemal Mullins MD [STAFF PHYSICIAN] - [place] 1 Month [facility] [Primary Care Provider] - Disposition Disposition (needs filled in before D/C Order can be placed): Home, Self Care
--- NOTE | 2020-10-15 12:22 | PHA.DC.MC ---
Pharmacy Service has performed discharge medication reconciliation and counseling for this patient. 1. AMOXICILLIN 500MG PO DAILY (STARTING AFTER COMPLETION OF CEPHALEXIN) 2. CEPHALEXIN 500MG PO TID X 7 DAYS The patient's discharge medication list was reviewed for discrepancies and discrepancies were resolved. Home Medications amoxicillin 500 mg PO DAILY #30 tab 10/15/20 cephalexin 500 mg PO TID #21 cap 10/15/20 The patient was counseled on the following discharge medications and changes in medications for homegoing were reviewed. The Reason for Use, instructions for use, and potential side effects were reviewed for all new medications. The patient's questions regarding all of their medications were answered. The patient was able to verbally demonstrate an understanding of their discharge medications.
== END 2020-10-15 12:45 | disposition home or self-care (01) | DRG 872 ==
LOC: ED 02:56 → PCU 03:03
PROVIDERS: Admitting Provider Student in an Organized Health Care Education/Training Program; Emergency Provider Emergency Medicine; Visit Provider Internal Medicine
DX: A40.9 Streptococcal sepsis, unspecified (principal); L03.116 Cellulitis of left lower limb; W57.XXXA Bitten or stung by nonvenomous insect and other nonvenomous arthropods, initial encounter; Z86.718 Personal history of other venous thrombosis and embolism; B95.1 Streptococcus, group B, as the cause of diseases classified elsewhere; R60.0 Localized edema; E66.3 Overweight; Z68.32 Body mass index [BMI] 32.0-32.9, adult
CPT/HCPCS: 36415; 71045; 80048; 81001; 83605; 85025; 87040; 87077; 87186; 93306; 93971; 99285; J7030; J7040; A4216

== ENCOUNTER 2023-02-12 05:19 | Emergency (ER) | payer OTHER, SELFPAY ==
[2023-02-12 05:20] VITALS: BP 139/93; PULSE 67; RESP 20; TEMP 36.6; O2SAT 98; BMI 34.6
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
--- NOTE | 2023-02-12 05:40 | RAD_ITS ---
EXAM: XR RIGHT SHOULDER COMPLETE, 2 OR MORE VIEWS CLINICAL INDICATION: Injury/Pain Injury/Pain TECHNIQUE: Two or more views of the right shoulder. COMPARISON: Chest x-ray 08/17/2019. FINDINGS: BONES/JOINTS: There is mild to moderate degenerative arthrosis of the glenohumeral joint. As seen on one of the 4 images, there is inferior displacement of the acromial process relative to the distal clavicle. There is no visualized widening of the acromioclavicular joint, however, these findings may still represent AC joint separation. No acute fracture. Normal alignment. No sclerotic or destructive changes observed. SOFT TISSUES: Unremarkable. No soft tissue swelling or gas. No radiopaque foreign body. RAD/Shoulder min 2 Views IMPRESSION: 1. Suspect AC joint separation. Would consider views with and without hand-held weights for confirmation. 2. No visualized fracture or dislocation. 3. [id number] degenerative arthrosis of the glenohumeral joint. Electronically Signed: Jase Fisher MD at 6:24 EST ,
--- NOTE | 2023-02-12 05:40 | RAD_ITS ---
EXAM: XR RIGHT HIP WITH PELVIS WHEN PERFORMED, 2 OR 3 VIEWS CLINICAL INDICATION: Injury/Pain Injury/Pain TECHNIQUE: Two or three views of the right hip with pelvis when performed. COMPARISON: No relevant prior studies available. FINDINGS: BONES/JOINTS: Unremarkable. No displaced fracture. No destructive or sclerotic lesions. Note that overlapping bowel shadows may however obscure fine detail. Sacroiliac joint is unremarkable. No widening of the pubic symphysis. The articular structures are unremarkable. SOFT TISSUES: Unremarkable. No soft tissue swelling or gas. RAD/HIP, UNI W/ Pelvis 2-3 Views IMPRESSION: No evidence of displaced pelvic or hip fracture. Electronically Signed: Jase Fisher MD at 6:18 EST Reading Location ID and State: [facility] / [place] , Service support ,
== END 2023-02-12 06:39 | disposition home or self-care (01) ==
PROVIDERS: Emergency Provider Emergency Medicine; Visit Provider Emergency Medicine
DX: S40.011A Contusion of right shoulder, initial encounter (principal); S70.01XA Contusion of right hip, initial encounter; V10.0XXA Pedal cycle driver injured in collision with pedestrian or animal in nontraffic accident, initial encounter
CPT/HCPCS: 73030; 73502; 99282